=== PATIENT | male | born 1950 | race Caucasian/White ===

== ENCOUNTER 2020-03-11 14:43 | Emergency (ER) | payer MEDICARE, MEDICAID, SELFPAY ==
--- NOTE | 2020-03-11 14:52 | ED.GENADULT ---
HPI - General Adult General Chief complaint: Skin/Abscess/Foreign Body Stated complaint: back of left leg wound Time Seen by Provider: 03/11/20 14:52 Source: patient Mode of arrival: ambulatory Limitations: no limitations History of Present Illness HPI narrative: 69-year-old male patient presents to the [facility] with complaints of a wound to the back of the left leg. Patient states he does have a history of diabetes and does get cellulitis often to this leg. Patient states he had an issue with cellulitis to the left leg and November was put on clindamycin and states that it cleared up. Patient states that it is started to come back early February and did see his doctor in which they prescribed him cefdinir and Bactroban. Patient states he has been cleaning the wound with regular soap and water and taking [place] for pain. Patient states he did finish the antibiotic but does not feel like he is cleared up. Patient states he feels like the wound is gotten worse. Patient denies dressing the wound but has been putting the Bactroban on it. Patient states he has been checking his sugars about once a day and has been ranging around 120. Patient states he does take insulin when needed. Patient states he did try calling his primary doctor today but they were unable to get him in today so he wanted to come here to get checked out. Denies any fevers, chest pain or shortness of breath. Related Data Home Medications Medication Instructions Recorded Confirmed cholecalciferol (vitamin D3) 50 2,000 unit PO DAILY 12/09/19 mcg (2,000 unit) tablet glipizide 2.5 mg tablet, extended 2.5 mg PO DAILY 12/09/19 03/11/20 release 24 hr levothyroxine 100 mcg tablet 100 mcg PO DAILY 12/09/19 03/11/20 lisinopril 20 mg tablet 20 mg PO DAILY 12/09/19 03/11/20 simvastatin 40 mg tablet 40 mg PO DAILY 12/09/19 Allergies Allergy/AdvReac Type Severity Reaction Status Date / Time levofloxacin Allergy Mild Rash Verified 03/11/20 15:29 Quinolones Allergy Mild Rash Verified 03/11/20 15:29 Review of Systems Review of Systems: Narrative: CONSTITUTIONAL: Denies fever, chills, or sweats. EYES: Denies visual changes, redness, or discharge. ENT: Denies rhinorrhea, congestion, sore throat, or otalgia. CARDIOVASCULAR: Denies chest pain, palpitations, or edema. RESPIRATORY: Denies cough or dyspnea. GASTROINTESTINAL: Denies abdominal pain, nausea, vomiting, or diarrhea. GENITOURINARY: Denies dysuria or hematuria. SKIN: Denies rash or itching. Positive wound to the back of the left leg MUSCULOSKELETAL: Denies back pain, joint pain, or myalgia. NEUROLOGIC: Denies headache, numbness, or weakness. PSYCHIATRIC: Denies anxiety or depression. [facility] Past Medical History Medical History Chronic venous insufficiency Colon polyp Shingles Ventral hernia Family History Family History Father Family history of heart disease in male family member before age 55, Onset Age: 64 Patient's father is Family history of cardiovascular disease Other Family history of kidney disease Family history of osteoarthritis Hypertension Social History Social History Smoking status: Never smoker Second hand tobacco smoke exposure: No Alcohol intake: current Comments At the time of my signature I agree with nursing past medical history, surgical, social, and family history. There is no relevant family history pertinent to the presenting complaint. Exam Narrative: Exam Narrative: GENERAL: Well-appearing, well-nourished, and in no acute distress. HEAD: Normocephalic, atraumatic. EYES: PERRLA and EOMI. ENT: Nares clear, no rhinorrhea or epistaxis. Mucous membranes moist. NECK: Supple. No lymphadenopathy CHEST: Clear to auscultation. No respiratory distress. HEART: Regular rate and rhythm. No murmur hear
[2020-03-11 14:55] VITALS: BP 159/56; PULSE 69; RESP 18; TEMP 36.9; O2SAT 100
[2020-03-11 15:20] LABS: Glucose Point of Care 83 (65-105)
== END 2020-03-11 15:30 | disposition home or self-care (01) ==
PROVIDERS: Emergency Provider Nurse Practitioner Family; PCP Internal Medicine
DX: L03.116 Cellulitis of left lower limb (principal); E11.9 Type 2 diabetes mellitus without complications; Z79.4 Long term (current) use of insulin; I87.2 Venous insufficiency (chronic) (peripheral); R03.0 Elevated blood-pressure reading, without diagnosis of hypertension
CPT/HCPCS: 82948; 99213; G0463

== ENCOUNTER 2020-03-17 07:43 | Outpatient (CLI) | payer MEDICARE, MEDICAID, SELFPAY ==
--- NOTE | ~2020-03-17 | US_ITS ---
EXAMINATION: US arterial ankle brachial ind DATE: 03/17/2020 09:08 INDICATION: Cellulitis and wound at the left lower limb. Peripheral vascular disease risk factors of diabetes, hypertension and hypercholesterolemia. TECHNIQUE: Segmental pressures and plethysmographic and Doppler waveforms of the brachial and lower e xtremity arteries were obtained. COMPARISON: None. FINDINGS: Right and left brachial artery pressures of 127 mm Hg and 116 mm Hg, respectively, are concordant (no rmal difference <= 30 mmHg). The right ankle-brachial index (MILI) is 1.38 (normal >= 0.9-1.0). The right great toe-brachial index (TBI) is 0.64 (normal >= 0.65). Arterial Doppler waveforms are biphasic with brisk systolic upstrokes at the right posterior tibial and dorsalis pedis arteries. The left MILI is 1.51. The left TBI is 0.65. Arterial Doppler waveforms are biphasic with brisk systol ic upstrokes at the left posterior tibial and dorsalis pedis arteries. IMPRESSION: 1. No significant arterial occlusive disease to either lower limb with normal bilateral ABIs, left TB I and borderline right TBI. Reviewed, dictated and finalized at location A. IMPRESSION: 1. No significant arterial occlusive disease to either lower limb with normal b ilateral ABIs, left TBI and borderline right TBI.
[2020-03-17 08:36] LABS: Hemoglobin A1C 6.2 % (<5.7)
[2020-03-17 08:43] LABS: Alanine Aminotransferase 15 U/L (4-50); Albumin Level 4.1 g/dL (3.5-5.1); Alkaline Phosphatase 78 U/L (38-126); Aspartate Amino Transferase 23 U/L (17-59); Bilirubin,Total 0.3 mg/dL (0.2-1.3); Blood Urea Nitrogen 23 mg/dL (9-20); Calcium 9.1 mg/dL (8.4-10.2); Carbon Dioxide 28 mmol/L (22-30); Chloride 101 mmol/L (98-107); Cholesterol 137 mg/dL (0-200); Estimated Glomerular Filt Rate > 60; Glucose 101 mg/dL (75-110); HDL Direct 48 mg/dL; Potassium 4.5 mmol/L (3.4-5.0); Sodium 136 mmol/L (137-145); Triglycerides 119 mg/dL (<150)
[2020-03-17 08:54] LABS: LDL Cholesterol Direct 62 mg/dL
[2020-03-17 09:01] LABS: Creatinine Urine 83.1 mg/dL
[2020-03-17 09:05] LABS: MALB Creatinine Ratio 9.3 mg/g (0-30); Microalbumin Urine Random 7.7 mg/L (0-16.7)
[2020-03-17 09:15] LABS: Free T4 Free Thyroxine 1.28 ng/mL (0.78-2.19)
== END 2020-03-17 07:44 | disposition home or self-care (01) ==
PROVIDERS: Referring Provider Nurse Practitioner; Visit Provider Internal Medicine
DX: E11.9 Type 2 diabetes mellitus without complications (principal); E78.00 Pure hypercholesterolemia, unspecified; E03.9 Hypothyroidism, unspecified; R09.89 Other specified symptoms and signs involving the circulatory and respiratory systems
CPT/HCPCS: 36415; 80053; 80061; 82043; 82248; 83036; 84439; 84443; 93922

== ENCOUNTER 2020-04-21 07:14 | Outpatient (RCR) | payer MEDICARE, MEDICAID, SELFPAY ==
--- NOTE | 2020-04-14 08:44 | PCWOUND ---
WOCN NOTE patient did not show up for scheduled appointment. Call was made, patient states he forgot about appointment, rescheduled for next week.
== END 2020-06-13 07:43 | disposition home or self-care (01) ==
LOC: ANHWOC 07:14
PROVIDERS: Visit Provider Internal Medicine
DX: L97.909 Non-pressure chronic ulcer of unspecified part of unspecified lower leg with unspecified severity (principal)
CPT/HCPCS: 99211; 99212; G0463

== ENCOUNTER 2020-04-28 07:02 | Outpatient (CLI) | payer MEDICARE, MEDICAID, SELFPAY ==
[2020-04-28 07:50] LABS: Alanine Aminotransferase 15 U/L (4-50); Albumin Level 4.2 g/dL (3.5-5.1); Alkaline Phosphatase 80 U/L (38-126); Aspartate Amino Transferase 22 U/L (17-59); Bilirubin,Total 0.2 mg/dL (0.2-1.3); Blood Urea Nitrogen 17 mg/dL (9-20); Calcium 8.9 mg/dL (8.4-10.2); Carbon Dioxide 26 mmol/L (22-30); Chloride 104 mmol/L (98-107); Cholesterol 137 mg/dL (0-200); Estimated Glomerular Filt Rate > 60; Glucose 109 mg/dL (75-110); HDL Direct 56 mg/dL; Potassium 4.6 mmol/L (3.4-5.0); Sodium 136 mmol/L (137-145); Triglycerides 150 mg/dL (<150)
[2020-04-28 07:52] LABS: Hemoglobin A1C 6.1 % (<5.7)
[2020-04-28 08:02] LABS: LDL Cholesterol Direct 60 mg/dL
== END 2020-04-28 07:03 | disposition home or self-care (01) ==
PROVIDERS: Visit Provider Internal Medicine
DX: E78.5 Hyperlipidemia, unspecified (principal); E11.9 Type 2 diabetes mellitus without complications; I10 Essential (primary) hypertension; E03.9 Hypothyroidism, unspecified
CPT/HCPCS: 36415; 80053; 80061; 83036; 84443

== ENCOUNTER 2020-08-31 07:24 | Outpatient (RCR) | payer MEDICARE, MEDICAID, SELFPAY ==
[2020-07-22 12:44] VITALS: BMI 49.9
--- NOTE | 2020-08-10 09:48 | PCWOUND ---
WOCN NOTE Received orders to continue to follow patient for wound care. Patient is currently active for wound care. Called patient for follow up appointment. Patient states his wound is better and does not think he really needs to come in. Informed patient he needs to be seen per order received from PCP. Patient accepted appointment for August 17 at 9:30.
--- NOTE | 2020-09-28 09:36 | PCWOUND ---
WOCN NOTE patient did not show up for appointment. left message to reschedule.
== END 2020-10-20 23:59 | disposition home or self-care (01) ==
LOC: ANHWOC 07:24
PROVIDERS: Visit Provider Internal Medicine
DX: L97.929 Non-pressure chronic ulcer of unspecified part of left lower leg with unspecified severity (principal); G51.0 Bell's palsy
CPT/HCPCS: 99212; G0463

== ENCOUNTER 2020-08-31 11:44 | Emergency (ER) | payer MEDICARE, MEDICAID, SELFPAY | END 2020-08-31 11:45 | disposition left against medical advice (07) | PROVIDERS: PCP Internal Medicine | DX: Z53.21 Procedure and treatment not carried out due to patient leaving prior to being seen by health care provider (principal) | CPT/HCPCS: 99199 ==

== ENCOUNTER 2020-09-05 09:26 | Outpatient (CLI) | payer MEDICARE, MEDICAID, SELFPAY ==
[2020-09-05 09:57] LABS: Hemoglobin A1C 6.1 % (<5.7)
[2020-09-05 09:59] LABS: Alanine Aminotransferase 16 U/L (4-50); Albumin Level 4.1 g/dL (3.5-5.1); Alkaline Phosphatase 82 U/L (38-126); Anion Gap 10 mmol/L (8-16); Aspartate Amino Transferase 20 U/L (17-59); Bilirubin,Total 0.4 mg/dL (0.2-1.3); Blood Urea Nitrogen 23 mg/dL (9-20); Calcium 9.2 mg/dL (8.4-10.2); Carbon Dioxide 25 mmol/L (22-30); Chloride 105 mmol/L (98-107); Cholesterol 129 mg/dL (0-200); Estimated Glomerular Filt Rate > 60; Glucose 112 mg/dL (75-110); HDL Direct 51 mg/dL; Potassium 4.8 mmol/L (3.4-5.0); Sodium 140 mmol/L (137-145); Triglycerides 153 mg/dL (<150)
[2020-09-05 10:10] LABS: LDL Cholesterol Direct 55 mg/dL
== END 2020-09-05 09:27 | disposition home or self-care (01) ==
PROVIDERS: PCP Internal Medicine; Visit Provider Nurse Practitioner
DX: E78.5 Hyperlipidemia, unspecified (principal); E11.9 Type 2 diabetes mellitus without complications
CPT/HCPCS: 36415; 80053; 80061; 83036

== ENCOUNTER 2020-12-21 10:50 | Outpatient (CLI) | payer MEDICARE, MEDICAID, SELFPAY ==
--- NOTE | ~2020-12-21 | XR_ITS ---
EXAMINATION: XR hip LT min 2V DATE: 12/21/2020 11:28 INDICATION: Left hip pain TECHNIQUE: Anteroposterior and frog leg lateral views of the left hip were obtained. COMPARISON: Pelvis radiograph 07/13/2011 FINDINGS: Interval progression of now severe osteoarthritis at the left hip with prominent subarticular lytic a nd sclerotic changes. No fracture. Partially visualized is the femoral head and acetabular components of a right total hip arthroplasty. IMPRESSION: 1. Severe left hip osteoarthritis. Reviewed, dictated and finalized at location B. WARE ENGINEER INTERN
--- NOTE | ~2020-12-21 | XR_ITS ---
XR lumbar spine 2-3V DATE: 12/21/2020 11:28 INDICATION: Low back pain. No injury. TECHNIQUE: AP, lateral, coned lateral lumbosacral views COMPARISON: 07/16/2011 lumbar spine FINDINGS: There is mild levoscoliosis of lumbar spine. There is diffuse osteopenia. Degenerative spurring of the lower thoracic spine. There is severe degenerative disc disease at L1-2, moderately prominent degenerative disc disease at L2-3, L3-4 and mild degenerative disc disease at L4-5. No fracture or bone destruction is evident. The pedicles appear intact. The sacroiliac joints are intact. Right total hip replacement is noted. IMPRESSION: Mild levoscoliosis Osteopenia Multilevel degenerative disc disease Reviewed, dictated and finalized at location A. ICAL PROJECT COORDINATOR
== END 2020-12-21 10:51 | disposition home or self-care (01) ==
LOC: ANHIMG 11:00
PROVIDERS: Family Provider Internal Medicine; PCP Internal Medicine; Visit Provider Internal Medicine
DX: M51.36 Other intervertebral disc degeneration, lumbar region (principal); M85.88 Other specified disorders of bone density and structure, other site; M16.12 Unilateral primary osteoarthritis, left hip
CPT/HCPCS: 72100; 73502; 99212; G0463

== ENCOUNTER 2021-01-18 07:35 | Outpatient (RCR) | payer MEDICARE, MEDICAID, SELFPAY | END 2021-01-31 23:59 | disposition home or self-care (01) | LOC: ANHWOC 07:35 | PROVIDERS: PCP Internal Medicine; Visit Provider Internal Medicine | DX: L97.929 Non-pressure chronic ulcer of unspecified part of left lower leg with unspecified severity (principal) | CPT/HCPCS: 99212; G0463 ==

== ENCOUNTER 2021-01-20 08:28 | Outpatient (CLI) | payer MEDICARE, MEDICAID, SELFPAY ==
[2021-01-20 08:57] LABS: Basophils Percent Auto 0.6 % (0.2-1.2); Eosinophils Absolute Auto 0.5 K/mm3 (0-0.3); Eosinophils Percent Auto 7.3 % (0-4.4); Hematocrit 37.4 % (42.0-52.0); Hemoglobin 11.5 g/dL (14.0-18.0); Immature Granulocyte Absolute 0.07 K/mm3 (0.00-0.031); Immature Granulocyte Percent A 1.1 % (0-0.5); Lymphocytes Absolute Auto 1.27 K/mm3 (0.9-3.2); Lymphocytes Percent Auto 20.6 % (18.3-44.2); Mean Corpuscular HGB Conc 30.7 g/dl (32-36); Mean Corpuscular Hemoglobin 28.6 pg (26-34); Monocytes Absolute Auto 0.4 K/mm3 (0.1-0.6); Monocytes Percent Auto 5.8 % (2.6-8.5); Neutrophils Percent Auto 64.6 % (45.5-73.1); Platelet Count Result 420 k/mm3 (150-375); Red Blood Count 4.02 M/mm3 (4.6-6.20); Red Cell Distribution Width 17.4 % (11.5-14.5); White Blood Count 6.2 K/mm3 (4.5-10.0)
[2021-01-20 09:14] LABS: Alanine Aminotransferase 20 U/L (4-50); Albumin Level 4.5 g/dL (3.5-5.1); Alkaline Phosphatase 85 U/L (38-126); Anion Gap 7 mmol/L (8-16); Aspartate Amino Transferase 32 U/L (17-59); Bilirubin,Total 0.4 mg/dL (0.2-1.3); Blood Urea Nitrogen 34 mg/dL (9-20); Calcium 9.2 mg/dL (8.4-10.2); Carbon Dioxide 26 mmol/L (22-30); Chloride 107 mmol/L (98-107); Cholesterol 141 mg/dL (0-200); Estimated Glomerular Filt Rate > 60; Glucose 114 mg/dL (75-110); HDL Direct 51 mg/dL; Potassium 4.7 mmol/L (3.4-5.0); Sodium 140 mmol/L (137-145); Triglycerides 253 mg/dL (<150)
[2021-01-20 09:25] LABS: LDL Cholesterol Direct 47 mg/dL
[2021-01-20 09:33] LABS: Iron 64 ug/dL (49-181); Percent Iron Saturation 17 % (20-50)
[2021-01-20 10:42] LABS: Prostate Specific Antigen 0.5 ng/mL (< OR = 4.0)
[2021-01-20 10:59] LABS: Hemoglobin A1C 5.6 % (<5.7)
== END 2021-01-20 08:29 | disposition home or self-care (01) ==
PROVIDERS: PCP Internal Medicine; Visit Provider Internal Medicine
DX: E11.9 Type 2 diabetes mellitus without complications (principal); D64.9 Anemia, unspecified; I10 Essential (primary) hypertension; Z12.5 Encounter for screening for malignant neoplasm of prostate; E78.5 Hyperlipidemia, unspecified; E03.9 Hypothyroidism, unspecified
CPT/HCPCS: 36415; 80053; 80061; 83036; 83540; 83550; 84153; 84443; 85025; G0103

== ENCOUNTER 2021-02-02 09:00 | Outpatient (RCR) | payer MEDICARE, MEDICAID, SELFPAY ==
--- NOTE | 2020-12-29 14:19 | PTOPEVAL ---
Thank you for referring Miles Pinto to [facility].? The patient is scheduled to be seen for therapy? 2 x/week for 8 weeks. Please review, sign, date and return this plan of care LISANDRA. I agree with and certify that the following plan of care is medically necessary. 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 He was at [facility]hab [facility] in [place] for ~4 wk. He also had rehab 2 yrs ago. He uses a walker for his household mobility. He is limited with his tolerance with standing to 10 min and sitting to 30 min. He was referred due to cont pain. He does not performing any exercises. He walks to the mailbox 6x/wk of ~ 125 ft. He spends most of his day in the chair watching TV and using computer. Pain Assessment Lower Back Reported Pain Level 3 Pain Description Aching Pain Frequency Chronic,Continuous Lowest Pain Intensity 2 Greatest Pain Intensity 3 Pain Aggravating Factors Bending,Exercise/Activity, Lifting,Prolonged Position, Sitting,Walking,Weight Bearing /Standing Left Hip(s) Reported Pain Level 5 Pain Description Aching Pain Frequency Chronic,Continuous Lowest Pain Intensity 3 Greatest Pain Intensity 7 Pain Aggravating Factors ADL's,Exercise/Activity, Lifting,Prolonged Position, Sitting,Walking,Weight Bearing /Standing Pain Score 5,3: Self Report Cervical and Lumbar ROM Lumbar ROM Lumbar ROM
--- NOTE | 2021-02-02 09:30 | PTOPEVAL ---
Thank you for referring Miles Pinto to [facility].? Pt has bee seen for 11 therapy visits from 12/29/20 to 02/02/21 to address hip and back pain. He has partially achieved his therapy goals with improved pain, functional mobility and strength. Miles is able to perform a home exercise program to maintain his level of function. Will D/C skilled therapy services at this time. Please review, sign, date and return discharge summary LISANDRA. I agree with and certify that the following plan of care is medically necessary. 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 He remains limited with his tolerance with standing to 10 min and sitting to 30 min. He walks to the mailbox 6x/wk of ~ 125 ft. He does feel like his walking is getting better with improved ease of walking. Pain Assessment Self Report Pain Assessment Lower Back Reported Pain Level 5 Pain Description Aching Lowest Pain Intensity 5 Greatest Pain Intensity 7 Pain Aggravating Factors Exercise/Activity,Prolonged Position,Sitting,Walking, Weight Bearing/Standing Left Hip(s) Reported Pain Level 3 Pain Description Aching Pain Frequency Chronic,Continuous Lowest Pain Intensity 3 Greatest Pain Intensity 7 Pain Aggravating Factors Exercise/Activity,Prolonged Position,Sitting,Walking, Weight Bearing/Standing Cervical and Lumbar ROM Lumbar Flexion Active Mid Colmenares Query Text:Hands to: Lumbar ROM 25% of Normal Lumbar Comments no pain in left hip or back with trunk flexion or extension with motion
== END 2021-02-02 10:29 | disposition home or self-care (01) ==
LOC: ANHPT 09:00
PROVIDERS: PCP Internal Medicine; Visit Provider Internal Medicine
DX: M54.5 Low back pain (principal); M25.552 Pain in left hip
CPT/HCPCS: 97110; 97116; 97163; 97530

== ENCOUNTER 2021-02-08 09:02 | Outpatient (CLI) | payer MEDICARE, MEDICAID, SELFPAY ==
--- NOTE | ~2021-02-08 | NM_ITS ---
EXAMINATION: NM karo stress w perfusion DATE: 02/08/2021 13:11 INDICATION: Type 2 diabetes without complication. Preop. TECHNIQUE: Rest images were obtained following intravenous administration of 9.5 mCi Tc99m tetrofosmi n (Myoview). The patient was infused intravenously with Lexiscan (regadenoson). Then, 27.7 mCi Tc99m tetrofosmin (Myoview) was administered intravenously, and stress images were obtained. Data was recon structed into short axis and horizontal and vertical long axis SPECT images. Gated SPECT images were also obtained. COMPARISON: None. FINDINGS: There is a small, mild, fixed perfusion defect involving apical lateral segment of left adrián tricle, consistent with infarct. No reversible component to suggest ischemia. There is no segmental wall motion abnormality. Left ventricular ejection fraction measures 67%. IMPRESSION: 1. Small area of mild infarct involving apical lateral segment of left ventricle. 2. Normal left ventricular ejection fraction measuring 67%. Reviewed, dictated and finalized at location A. IMPRESSION: 1. Small area of mild infarct involving apical lateral segment of left ventricl e. 2. Normal left ventricular ejection fraction measuring 67%.
--- NOTE | 2021-02-08 09:18 | EST_ITS ---
Patient Info Name: Miles Pinto Age: 70 years : 1950 Gender: Male Ht: 65 in Wt: 295 lbs BSA: 2.56 m2 Exam Date: 02/08/2021 10:55 AM Exam Location: [facility] Stress Patient Status: Outpatient Admit Date: 02/08/2021 Staff Ordering Physician: Weston Simental DO Attending Provider: Weston Simental DO Exercise Technologist: Ky Kapadia RDCS, RT Exercise Physician: Nico Nguyne DO Exam Type: CA stress karo w NM Study Info A regadenoson stress test was performed. Summary 1. 1. Negative lexiscan stress test for ischemic ST changes by ECG criteria. 2. 2. Stable hemodynamics throughout the test. 3. 3. Nuclear scan to follow and will be reported separately. Please correlate with it. 4. 4. Patient informed of the above results. Protocol: Lexiscan Stress ECG Details Stage: REST Duration (min): 6 min : 32 sec HR (bpm): 66 SBP (mmHg): 115 DBP (mmHg): 57 Stage: REST Duration (min): 11 min : 17 sec HR (bpm): 75 SBP (mmHg): 115 DBP (mmHg): 57 Stage: STAGE 1 Duration (min): 1 min : 0 sec HR (bpm): 91 SBP (mmHg): 131 DBP (mmHg): 68 Stage: RECOVERY Duration (min): 1 min : 0 sec HR (bpm): 93 SBP (mmHg): 131 DBP (mmHg): 68 Stage: RECOVERY Duration (min): 2 min : 0 sec HR (bpm): 90 SBP (mmHg): 131 DBP (mmHg): 68 Stage: RECOVERY Duration (min): 3 min : 0 sec HR (bpm): 90 SBP (mmHg): 132 DBP (mmHg): 57 Stage: RECOVERY Duration (min): 3 min : 6 sec HR (bpm): 90 SBP (mmHg): 132 DBP (mmHg): 57 Rest HR: 75 bpm Peak HR: 95 bpm Rest Sys BP: 115 mmHg Peak Sys BP: 132 mmHg Max Pred HR: 148 bpm % Max Pred HR: 64 % Target HR: 126 bpm Max RPP: 12,540 bpm*mmHg Termination Reason: Completed protocol Cardiac Symptoms: Shortness of breath Total Time: 1 min : 0 sec Rest High BP: 57 mmHg Peak High BP: 57 mmHg Total Dose: 0.4 mg Resting ECG Sinus rhythm, IRBBB. Stress ECG No ST changes. Arrhythmias None. Report Signatures
== END 2021-02-08 09:03 | disposition home or self-care (01) ==
PROVIDERS: PCP Internal Medicine; Visit Provider Internal Medicine
DX: E11.9 Type 2 diabetes mellitus without complications (principal); E66.01 Morbid (severe) obesity due to excess calories; Z01.810 Encounter for preprocedural cardiovascular examination
CPT/HCPCS: 78452; 93017; A9502; J2785

== ENCOUNTER 2021-05-03 07:23 | Outpatient (RCR) | payer MEDICARE, MEDICAID, SELFPAY | END 2021-05-17 23:59 | disposition home or self-care (01) | LOC: ANHWOC 07:23 | PROVIDERS: PCP Internal Medicine; Visit Provider Internal Medicine | DX: L97.929 Non-pressure chronic ulcer of unspecified part of left lower leg with unspecified severity (principal) | CPT/HCPCS: 99211; 99212; G0463 ==

== ENCOUNTER 2023-05-08 19:59 | Emergency (ER) | payer MEDICARE, MEDICAID, SELFPAY ==
--- NOTE | ~2023-05-08 | CT_ITS ---
EXAMINATION: CT brain wo con INDICATION: Left-sided facial droop COMPARISON: None TECHNIQUE: Standard unenhanced head CT. The dose-length product (DLP) was 681.00 mGy-cm. The mA was a djusted according to patient size. Iterative reconstruction technique was employed. FINDINGS: There is no acute intraparenchymal hemorrhage. No evidence of mass lesion. No evidence of a cute infarction. There is mild periventricular and subcortical hypodensity probably related to small vessel ischemic disease. There is mild prominence of the sulci and ventricles related to cerebral atr ophy. Intracranial calcified cerebral atherosclerosis is noted. There are no extra-axial collections. There is no mass effect or midline shift. There is mild hypertrophy of the extraocular muscles. Ther e is fibrous union of the posterior C1 ring. The visualized sinuses and mastoid air cells are well ae rated. IMPRESSION: 1. No acute intracranial abnormality. 2. Age related findings. 3. Mild hypertrophy of the extraocular muscles which can be seen in the setting of Graves' disease. Reviewed, dictated and finalized at location A.
[2023-05-08 20:25] VITALS: BP 115/78; PULSE 84; RESP 20; TEMP 36.1; O2SAT 100
[2023-05-09] VITALS (8 sets, daily range): BP systolic 142; BP diastolic 88; PULSE 82–93; RESP 15–27; O2SAT 96–100
--- NOTE | 2023-05-09 00:03 | ECG_ITS ---
Measurements Intervals [place] Rate: 80 P: NE: 0 QRS: 10 QRSD: 97 T: 20 QT: 371 QTc: 428 Interpretive Statements ATRIAL FIBRILLATION LOW QRS VOLTAGE IN PRECORDIAL LEADS [QRS DEFLECTION < 1.0 mV IN CHEST LEADS] POSSIBLE RIGHT VENTRICULAR CONDUCTION DELAY [RSR (QR) IN V1/V2] ABNORMAL RHYTHM ECG NO PREVIOUS ECG AVAILABLE FOR COMPARISON Electronically Signed On 05-09-2023 13:52:11 CDT by Manan Carter M.D.
[2023-05-09 00:29] LABS: Alanine Aminotransferase 16 U/L (6-50); Albumin Level 4.4 g/dL (3.5-5.1); Alkaline Phosphatase 124 U/L (38-126); Anion Gap 8 mmol/L (8-16); Aspartate Amino Transferase 22 U/L (17-59); Bilirubin,Total 0.5 mg/dL (0.2-1.3); Blood Urea Nitrogen 28 mg/dL (9-20); Calcium 8.5 mg/dL (8.4-10.2); Carbon Dioxide 27 mmol/L (22-30); Chloride 105 mmol/L (98-107); Estimated CRCL calculation 89 ml/min; Estimated Glomerular Filt Rate > 60; Glucose 88 mg/dL (65-110); Potassium 4.2 mmol/L (3.4-5.0); Sodium 140 mmol/L (137-145)
[2023-05-09 00:35] LABS: Basophils Percent Auto 0.4 % (0.2-1.2); Eosinophils Absolute Auto 0.2 K/mm3 (0-0.3); Eosinophils Percent Auto 3.2 % (0-4.4); Hematocrit 38.5 % (42.0-52.0); Hemoglobin 11.8 g/dL (14.0-18.0); Immature Granulocyte Absolute 0.01 K/mm3 (0.00-0.031); Immature Granulocyte Percent A 0.2 % (0-0.5); Lymphocytes Absolute Auto 1.06 K/mm3 (0.9-3.2); Lymphocytes Percent Auto 20.1 % (18.3-44.2); Mean Corpuscular HGB Conc 30.6 g/dl (32-36); Mean Corpuscular Hemoglobin 27.6 pg (26-34); Mean Platelet Volume 9.6 fl (7.4-10.4); Monocytes Absolute Auto 0.4 K/mm3 (0.1-0.6); Monocytes Percent Auto 8.3 % (2.6-8.5); Neutrophils Absolute Auto 3.6 K/mm3 (1.3-6.7); Neutrophils Percent Auto 67.8 % (45.5-73.1); Platelet Count Result 326 k/mm3 (150-375); Red Blood Count 4.28 M/mm3 (4.6-6.20); Red Cell Distribution Width 19.7 % (11.5-14.5); White Blood Count 5.3 K/mm3 (4.5-10.0)
[2023-05-09 00:38] LABS: INR 1.1
--- NOTE | 2023-05-09 03:01 | ED.GENADULT ---
HPI - General Adult General Chief complaint: Neuro Symptoms/Deficit Stated complaint: facial numbness x 2 days - history of dover's palsy Time Seen by Provider: 05/08/23 23:48 History of Present Illness HPI narrative: Patient 73-year-old gentleman who presents the emergency department with chief complaint of left-sided facial numbness and facial droop. 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 The patient reports no weakness in his arms or legs reports no difficulty speech patient reports he has chronic venous stasis of his lower extremities Related Data Home Medications Medication Instructions Recorded Confirmed cholecalciferol (vitamin D3) 50 2,000 unit PO DAILY 12/09/19 06/12/21 mcg (2,000 unit) tablet fluticasone propionate 50 g intranasal 06/12/21 06/12/21 mcg/actuation nasal spray,suspension Allergies Allergy/AdvReac Type Severity Reaction Status Date / Time levofloxacin Allergy Mild Rash Verified 05/08/23 22:17 Quinolones Allergy Mild Rash Verified 05/08/23 22:17 Review of Systems Review of Systems: A 10 system review of systems was completed on the patient and is negative except for what is stated in the HPI. Nursing and ancillary documentation was reviewed. [facility] Past Medical History Medical History Chronic venous insufficiency Colon polyp Shingles Ventral hernia Family History Family History Father Family history of heart disease in male family member before age 55, Onset Age: 64 Patient's father is Family history of cardiovascular disease Other Family history of kidney disease Family history of osteoarthritis Hypertension Social History Social History Smoking status: Never smoker Second hand tobacco smoke exposure: No Alcohol intake: current Gender identity (if verbalized by the patient): Male Exam Narrative: GENERAL: Well-appearing, well-nourished, and in no acute distress. HEAD: Normocephalic, atraumatic. EYES: PERRLA and EOMI. ENT: Nares clear, no rhinorrhea or epistaxis. Mucous membranes moist. NECK: Supple. CHEST: Clear to auscultation. No respiratory distress. HEART: Regular rate and rhythm. No murmur heard. Normal peripheral pulses. ABDOMEN: Soft, nontender, nondistended, normal active bowel sounds. EXTREMITIES: Normal range of motion. No edema. SKIN: Warm, dry, no rash. There is chronic venous stasis present to the lower extremities NEURO: No focal deficits other than mild left-sided facial asymmetry that does involve the forehead. Alert and oriented x3. PSYCH: Normal mood and affect. Course Vital Signs Vital signs: Vital Signs Temperature 36.1 C L 05/08/23 20:25 Pulse Rate 84 05/08/23 20:25 Respiratory Rate 20 05/08/23 20:25 Blood Pressure 115/78 05/08/23 20:25 Pulse Oximetry 100 05/08/23 20:25 Oxygen Delivery Room Air 05/08/23 20:25 Temperature 36.1 C L 05/08/23 20:25 Pulse Rate 88 05/09/23 01:49 Respiratory Rate 27 H 05/09/23 01:49 Blood Pressure 115/78 05/08/23 20:25 Pulse Oximetry 96 05/09/23 01:49 Oxygen Delivery Room Air 05/08/23 20:25 Medical Decision Making Vital Signs Vital Signs: Vital Signs Temperature 36.1 C L 05/08/23 20:25 Pulse Rate 84 05/08/23 20:25 Respiratory Rate 20 05/08/23 20:25 Blood Pressure 115/78 05/08/23 20:25 Pulse Oximetry 100 05/08/23 20:25 Oxygen Delivery Room Air 05/08/23 20:25 Temperature 36.1 C L 05/08/23 20:25 Pulse Rate 88 05/09/23 01:49 Respiratory Rate 27 H 05/09/23 01:49 Blood Pressure 115/78 05/08/23 20:25 Pulse Oximetry 96 05/09/23 01:49 Oxygen Delivery Room Air 05/08/23 20:25 Lab Data 05/09/23 00:12 05/09/23 00:12
== END 2023-05-09 07:01 ==
PROVIDERS: Emergency Provider Emergency Medicine; PCP Family Medicine
DX: G51.0 Bell's palsy (principal); I87.8 Other specified disorders of veins; Z79.84 Long term (current) use of oral hypoglycemic drugs; Z79.891 Long term (current) use of opiate analgesic
CPT/HCPCS: 36415; 70450; 80053; 85025; 85610; 85730; 93005; 99284

== ENCOUNTER 2024-06-29 17:28 | Inpatient (IN) | payer MEDICARE, MEDICAID, SELFPAY ==
--- NOTE | ~2024-06-29 | CT_ITS ---
EXAMINATION: CT facial & cervical spine wo DATE: 06/29/2024 19:43 INDICATION: facial trauma TECHNIQUE: Computed tomography (CT) of the maxillofacial region and cervical spine was performed with out intravenous contrast. Automated exposure control and iterative reconstruction technique were empl oyed. The dose-length product was 681.00 mGy-cm. COMPARISON: CT C-spine 01/29/2005 FINDINGS: CERVICAL: Vertebral Body Alignment: Reversal of the normal cervical lordosis. Craniocervical and atlantoaxial alignment: Moderate degenerative change. Alignment intact. Osseous structures/fracture: No evidence of a lytic or blastic process in the visualized spine. No e vidence of acute fracture. Unfused posterior C1 arch. Cervical soft tissues: The paraspinal soft tissues planes are maintained. Degenerative changes: Degenerative changes, without severe neural foraminal or central canal narrowin g. FACE: Soft Tissues: No significant superficial soft tissue swelling. Facial bones: No acute fracture. No lytic or blastic process. Eyes: The globes are intact. The soft tissue planes of the orbits are maintained. Paranasal Sinuses: The visualized aerated spaces are clear. Foreign Bodies: No radiopaque foreign bodies. Other Findings: Mild dependent atelectasis in the lungs. IMPRESSION: No acute fracture or traumatic malalignment in the cervical spine. No acute facial bone fracture. Reviewed, dictated and finalized at location K. IMPRESSION: No acute fracture or traumatic malalignment in the cervical spine. No acute fac ial bone fracture.
--- NOTE | ~2024-06-29 | XR_ITS ---
EXAMINATION: XR chest 1V Exam Date/Time: 06/29/2024 20:00 CDT HISTORY: shortness of breath Comparison: 05/14/2019. RESULT: Lines, tubes, and devices: Cholecystectomy clips. Lungs and pleura: Lordotic positioning. Lungs clear. Cardiomediastinal silhouette: Stable. Other: No acute osseous or upper abdominal finding. IMPRESSION: No acute cardiopulmonary process. Reviewed, dictated and finalized at location K.
--- NOTE | ~2024-06-29 | XR_ITS ---
EXAM: XR hip BI 2V w AP pelvis DATE: 06/29/2024 20:25 HISTORY: pain s/p fall . COMPARISON: 12/21/2020. FINDINGS: Exam limited by underpenetration from body habitus. Degenerative changes in the spine. Cl ateral uncomplicated hip arthroplasties. Dystrophic ossification about the left hip. No definite frac ture or dislocation. IMPRESSION: Limited examination as noted above. No definite acute osseous finding in the pelvis or bi lateral hips. No definite radiographic evidence of hardware related complication. Reviewed, dictated and finalized at location K. IMPRESSION: Limited examination as noted above. No definite acute osseous findi ng in the pelvis or bilateral hips. No definite radiographic evidence of hardwa re related complication.
--- NOTE | ~2024-06-29 | CT_ITS ---
EXAMINATION: CT brain wo con DATE: 06/29/2024 19:43 INDICATION: fall head injury . TECHNIQUE: Computed tomography (CT) of the head was performed without intravenous contrast. The mA wa s adjusted according to patient size. Iterative reconstruction technique was employed. The dose-lengt h product was 681.00 mGy-cm. COMPARISON: 05/09/2023. FINDINGS: No acute intracranial hemorrhage or extra-axial fluid collection. No hydrocephalus, mass, or herniation. No acute ischemic infarct. Unremarkable dural venous sinus attenuation. No acute osseous abnormality. The aerated spaces are clear. Mild atrophy and chronic white matter change. Atherosclerotic intracranial calcification. IMPRESSION: No acute intracranial process. Reviewed, dictated and finalized at location K.
--- NOTE | ~2024-06-29 | XR_ITS ---
EXAM: XR elbow LT 2V DATE: 06/29/2024 20:25 HISTORY: Pain status post fall . COMPARISON: None available. FINDINGS: Normal mineralization. No fracture or dislocation. No lytic or blastic lesion. Degenerativ e changes elbow joint. No erosion or periosteal change. Vascular calcifications. IMPRESSION: No acute osseous finding in the left elbow. Reviewed, dictated and finalized at location K.
--- NOTE | ~2024-06-29 | XR_ITS ---
EXAM: XR forearm RT 2V DATE: 06/29/2024 20:25 HISTORY: Pain status post fall . COMPARISON: None available. FINDINGS: Normal mineralization. No fracture or dislocation. No lytic or blastic lesion. Degenerativ e changes in the wrist and elbow. Intact screw and plate fixation in the mid forearm. Likely old scre w tract in the proximal ulna. No erosion or periosteal change. Vascular calcifications. IMPRESSION: No acute osseous finding in the right forearm. Reviewed, dictated and finalized at location K.
[2024-06-29 17:41] VITALS: BP 90/56; PULSE 119; RESP 25; TEMP 36.8; O2SAT 90
[2024-06-29 19:01] VITALS: BP 100/65; PULSE 112; RESP 27
--- NOTE | 2024-06-29 19:15 | ECG_ITS ---
Test Date: 2024-06-29 21:02:12 Measurements Intervals [place] Rate: 118 P: 0 SD: 0 QRS: 1 QRSD: 91 T: 17 QT: 313 QTc: 440 Interpretive Statements ATRIAL FIBRILLATION WITH RAPID VENTRICULAR RESPONSE WITH ABERRANT CONDUCTION OR VENTRICULAR PREMATURE COMPLEXES LOW QRS VOLTAGE IN PRECORDIAL LEADS [QRS DEFLECTION < 1.0 mV IN CHEST LEADS] INCOMPLETE RIGHT BUNDLE BRANCH BLOCK No previous ECG available for comparison Electronically Signed On 06-30-2024 14:40:08 CDT by Manan Carter M.D.
--- NOTE | 2024-06-29 19:23 | ED.GENADULT ---
HPI - General Adult General Chief complaint: Fall Stated complaint: FALL Time Seen by Provider: 06/29/24 19:04 History of Present Illness HPI narrative: Patient 74-year-old gentleman who presents emergency department with chief complaint of fall. Patient is a resident of [facility] and has some issues with short-term memory. Patient states that he was walking and either lost his balance or was week. Related Data Home Medications Medication Instructions Recorded Confirmed cholecalciferol (vitamin D3) 50 2,000 unit PO DAILY 12/09/19 06/12/21 mcg (2,000 unit) tablet fluticasone propionate 50 g intranasal 06/12/21 06/12/21 mcg/actuation nasal spray,suspension Allergies Allergy/AdvReac Type Severity Reaction Status Date / Time levofloxacin Allergy Mild Rash Verified 05/08/23 22:17 Quinolones Allergy Mild Rash Verified 05/08/23 22:17 Review of Systems Review of Systems: A 10 system review of systems was completed on the patient and is negative except for what is stated in the HPI. Nursing and ancillary documentation was reviewed. [facility] Past Medical History Medical History Chronic venous insufficiency Colon polyp Shingles Ventral hernia Family History Family History Father Family history of heart disease in male family member before age 55, Onset Age: 64 Patient's father is Family history of cardiovascular disease Other Family history of kidney disease Family history of osteoarthritis Hypertension Social History Social History Smoking status: Never smoker Second hand tobacco smoke exposure: No Alcohol intake: current Gender identity (if verbalized by the patient): Male Exam Narrative: GENERAL: Well-appearing, well-nourished, and in no acute distress. HEAD: Normocephalic, atraumatic. EYES: PERRLA and EOMI. ENT: Nares clear, no rhinorrhea or epistaxis. Mucous membranes moist. NECK: Supple. CHEST: Clear to auscultation. No respiratory distress. HEART: Regular rate and rhythm. No murmur heard. Normal peripheral pulses. ABDOMEN: Soft, nontender, nondistended, normal active bowel sounds. EXTREMITIES: Normal range of motion tenderness to palpation of bilateral hips. No edema. SKIN: Warm, dry, no rash. Small skin tear to the right forearm contusion left elbow NEURO: No focal deficits. Alert and oriented x3 does occasionally with questions for the family this is normal. PSYCH: Normal mood and affect. Course Vital Signs Vital signs: Vital Signs Temperature 36.8 C 06/29/24 17:41 Pulse Rate 119 H 06/29/24 17:41 Respiratory Rate 25 H 06/29/24 17:41 Blood Pressure 90/56 L 06/29/24 17:41 Pulse Oximetry 90 06/29/24 17:41 Oxygen Delivery Room Air 06/29/24 17:41 Temperature 36.8 C 06/29/24 17:41 Pulse Rate 115 H 06/29/24 22:02 Respiratory Rate 21 H 06/29/24 22:02 Blood Pressure 94/52 L 06/29/24 22:02 Pulse Oximetry 98 06/29/24 22:02 Oxygen Delivery Room Air 06/29/24 17:41 Medical Decision Making [facility] Narrative Medical decision making narrative: Differential diagnosis includes dysrhythmia, pneumonia, infectious source, UTI, electrolyte abnormality, fracture, contusion, head injury, intracranial hemorrhage CT head CT C-spine were obtained that showed no acute abnormality facial bones were also included. EKG showed atrial fibrillation with rapid ventricular response Plain film x-ray showed no evidence of fracture. CBC showed a significant leukocytosis no source of infection was able to be found above chest x-ray urinalysis there is no signs of cellulitis Patient be admitted for observation. Due to the patient's softer blood pressure lytes and patient was started on digoxin Vital Signs Vital Signs: Vital Signs
--- NOTE | 2024-06-29 19:52 | PCRCNOTE ---
Patient in imaging, will complete ABG when patient return.
[2024-06-29 20:35] LABS: Alveolar/Arterial O2 Gradient 101.4 mmHg; Base Excess ABG -0.3 mEq/l (+/-2.0); Fractional Inspired Oxygen 32 %; HCO3 ABG 24.5 mEq/l (22.0-26.0); Oxygen Content ABG 16.7 %vol (16.0-22.0); Oxygen Saturation ABG 95.6 % (95.0-100.0); Oxyhemoglobin 93.9 % THb (90.0-100.0); PO2 ABG 78.8 mmHg (80.0-100.0); PO2 FiO2 Ratio Arterial Blood 2.46 %; Total Hemoglobin 12.6 g/dL (12.0-18.0); pH ABG 7.395 (7.350-7.450)
[2024-06-29 20:37] LABS: Device NASAL CANNULA; Modified Allen's Test Pass; Site Drawn RIGHT RADIAL
[2024-06-29 20:53] LABS: Hematocrit 40.8 % (42.0-52.0); Hemoglobin 12.6 g/dL (14.0-18.0); Mean Corpuscular HGB Conc 30.9 g/dl (32-36); Mean Corpuscular Hemoglobin 30.6 pg (26-34); Mean Platelet Volume 9.7 fl (7.4-10.4); Platelet Count Result 265 k/mm3 (150-375); Red Blood Count 4.12 M/mm3 (4.6-6.20); Red Cell Distribution Width 16.2 % (11.5-14.5); White Blood Count 21.1 K/mm3 (4.5-10.0)
[2024-06-29 20:59] LABS: Add Urine Microscopic? YES; Appearance Urine Clear (Clear); Bacteria Urine None Seen /hpf; Bilirubin Urine Negative (Negative); Blood Urine Negative (Negative); Color Urine Yellow (Yellow); Glucose Urine UA Negative (Negative); Ketones Urine Trace mg/dL (Negative); Leukocyte Esterase Ur Negative LEU/UL (Negative); Nitrate Urine Negative (Negative); Protein Urine 1+ mg/dL (Negative); RBC Urine 0-2 /hpf (0-2); Specific Grav Ur 1.018 (1.001-1.035); Squamous Epithelial Cell Urine None Seen /hpf (Few); WBC Urine 0-5 /hpf (0-3); pH Urine 5.5 (5.0-9.0)
[2024-06-29 21:03] LABS: Alanine Aminotransferase 11 U/L (6-50); Albumin Level 4.1 g/dL (3.5-5.1); Alkaline Phosphatase 104 U/L (38-126); Anion Gap 9 mmol/L (4-12); Aspartate Amino Transferase 17 U/L (17-59); Bilirubin,Total 0.8 mg/dL (0.2-1.3); Blood Urea Nitrogen 29 mg/dL (9-20); Calcium 8.6 mg/dL (8.4-10.2); Carbon Dioxide 28 mmol/L (22-30); Chloride 99 mmol/L (98-107); Estimated CRCL calculation 58 ml/min; Estimated Glomerular Filt Rate 59; Glucose 170 mg/dL (65-110); Potassium 4.6 mmol/L (3.4-5.0); Sodium 136 mmol/L (137-145)
[2024-06-29 21:09] LABS: INR 1.2; Prothrombin Time 15.3 Seconds (11.1-14.7)
[2024-06-29 21:10] LABS: Partial Thromboplastin Time 34.1 Seconds (22.3-36.8)
[2024-06-29 21:15] LABS: NT Pro B Type Natriuretic Pept 2160 pg/mL (19.9-100); Troponin I 0.015 ng/mL (0.000-0.034)
[2024-06-29 21:20] LABS: Anisocytosis 1+; Band Neutrophils Percent 4 % (0-6); Lymphocytes Absolute Manual 0.63 K/mm3 (1.1-4.5); Neutrophils Absolute Manual 20.46 K/mm3 (1.3-6.7); Neutrophils Percent Manual 93 % (46-73); Platelet Estimate Adequate (Adequate); Schistocytes None Seen; Total Cells Counted 100
[2024-06-29 22:02] VITALS: BP 94/52; PULSE 115; RESP 21; O2SAT 98
[2024-06-29 22:18] LABS: Procalcitonin 1.3 ng/mL
[2024-06-29 22:57] VITALS: PULSE 118
[2024-06-29] MEDS: DIGOXIN INJ 250 MCG/ML 2 ML AMP (*BKC) IV PUSH (22:57)
[2024-06-29 23:58] VITALS: BMI 51.0
[2024-06-29 23:59] VITALS: BP 80/36; PULSE 112; RESP 24; TEMP 38.2; O2SAT 94
[2024-06-30] VITALS (20 sets, daily range): BP systolic 81–104; BP diastolic 37–55; PULSE 70–112; RESP 16–28; TEMP 36.8–37.3; O2SAT 91–100; BMI 52.6
--- NOTE | 2024-06-30 | ECHO_ITS ---
Patient Info Name: Miles Pinto Age: 74 years : 1950 Gender: Male Ht: 65 in Wt: 316 lbs BSA: 2.65 m2 HR: 91 bpm BP: 85 / 44 mmHg Heart Rhythm: Atrial Fibrillation Technical Quality: Poor Exam Date: 06/30/2024 10:22 AM Exam Location: Echo Lab Patient Status: Outpatient Admit Date: 06/29/2024 Staff Ordering Physician: Luiz Zuñiga DO Newspaper Stuffer: Scarlet De Guzman RDCS Attending Provider: Aliza Liao APRN Referring Physician: Yogesh SERRANO; Exam Type: CA echo dop color flow w con Study Info Indications - New Afib Complete two-dimensional, color flow and Doppler transthoracic echocardiogram is performed with contrast to opacify the left ventricle and to improve the deliniation of the left ventricle endocardial borders. Contrast/Agitated Saline Contrast/Ag. Saline: Definity Amount: 2.00 ml Administered By: Scarlet De Guzman RDCS Existing IV Access: Yes IV Access Condition: patent with no signs of infiltration Summary 1. Technically difficult study with limited views. 2. Left ventricular chamber dimension is normal. 3. Left ventricular systolic function is normal, estimated at 65-70%. 4. There is mildly increased left ventricular wall thickness. 5. There is mild tricuspid valve regurgitation. Left Ventricle Left ventricular chamber dimension is normal. Left ventricular systolic function is normal, estimated at 65-70%. There is mildly increased left ventricular wall thickness. Right Ventricle Right ventricular chamber dimension is not well visualized. Left Atria Left atrial chamber dimension is not well visualized. Right Atria Right atrial chamber dimension is not well visualized. Atrial Septum Intact interatrial septum visualized by color flow imaging. Aortic Valve The aortic valve is not well visualized. There is no aortic valve regurgitation. Pulmonic Valve The pulmonic valve is not well visualized. Mitral Valve The mitral valve has thickened leaflets. There is trace mitral valve regurgitation. The mitral valve annulus is moderately calcified. Tricuspid Valve There is mild tricuspid valve regurgitation. Inferior Vena Cava Normal inferior vena cava with <50% collapse upon inspiration consistent with elevated right atrial pressure, 8 mmHg. Aorta The aortic root size at the sinus of Valsalva is normal. Left Ventricular Outflow Tract Name Value Normal LVOT 2D LVOT Diameter 1.98 cm LVOT Doppler LVOT Peak Gradient 1 mmHg LVOT Mean Gradient 1 mmHg LVOT VTI 11.88 cm LVOT VTI/AV VTI Ratio 0.45 LVOT Stroke Volume 36.71 ml LVOT CO 2.01 l/min LVOT CI 0.76 L/min/m2 Pulmonic Valve Name Value Normal RVOT Doppler RVOT Peak Gradient 1 mmHg
[2024-06-30] MEDS: SODIUM CHLORIDE 0.9% IV 500 ML IV CONT ×2 (00:18→10:53)
--- NOTE | 2024-06-30 00:32 | PM.IMHP ---
H&P: HPI History of Present Illness Date/Time: 06/29/24 23:30 Chief Complaint: weakness, fall Narrative: Patient is a 74-year-old male with past with history of morbid obesity, sleep apnea, essential hypertension, iron deficiency anemia, type 2 diabetes, congestive heart failure, hypothyroidism, GERD, hyperlipidemia presents to ED with complaints of a fall and generalized weakness. Patient does not ambulate much, he recently had a stay at [facility]. He has chronic wounds on his legs. He states he is compliant with his CPAP machine set at 14 cm H2O. He does not recall having a history of AFib. He has known history CPAP apnea and has been compliant with his CPAP machine with settings of 14cm H2O. He has had no recent med changes. He states that he is having difficulty caring for himself. In the ED: Patient presented with AFib with RVR heart rate up to 110s-120s. He leukocytosis 21,000 however had no fever and no other signs of infectious etiology. Negative UA, negative chest x-ray, blood cultures pending. With no source infection, antibiotics were held. He also has no history of leukocytosis. He was given a dose of digoxin for the AFib. His BNP was elevated 2100. Patient being admitted to IMU for further management of AFib with RVR. Review of Systems Review of Systems: Constitutional: No Fever, No Chills, No Night Sweats, he endorses fatigue and fall ENT/Mouth: No Hearing Changes, No Ear Pain, No Nasal Congestion, No Sinus Pain, No Hoarseness, No sore throat, No Rhinorrhea, No Swallowing Difficulty Eyes: No Eye Pain, No Redness, No Vision Changes Cardiovascular: No Chest Pain, No Palpitations, No Dyspnea on Exertion, No Orthopnea, No Claudication, No Edema Respiratory: No Cough, No Sputum, No Wheezing, No Shortness of Breath Gastrointestinal: No Nausea, No Vomiting, No Diarrhea, No Constipation, No Abdominal Pain, No Heartburn, No Hematochezia, No Melena Genitourinary: No Dysuria, No Urinary Frequency, No Hematuria, No Urinary Incontinence, No Urgency Musculoskeletal: No Arthralgias, No Myalgias, No Joint Swelling, No Joint Stiffness, No Back Pain Skin: No Skin Lesions, No Pruritis, No Hair Changes Neuro: No Weakness, No Numbness, No Paresthesias, No Loss of Consciousness, No Syncope, No Dizziness, No Headache Psych: No Anxiety/Panic, No Depression, No Insomnia Heme: No Bruising, No Bleeding Lymph: No Adenopathy Endocrine: No Polyuria, No Polydipsia, No Temperature Intolerance [facility] Past Medical History Medical History (Updated 06/30/24 @ 01:37 by Luiz Zuñiga DO) Adult hypothyroidism Chronic venous insufficiency Colon polyp Diabetes type 2, controlled GERD (gastroesophageal reflux disease) Hypercholesteremia Hypertension Morbid (severe) obesity due to excess calories Shingles Sleep apnea Ventral hernia Family History Family History Father Family history of heart disease in male family member before age 55, Onset Age: 64 Patient's father is Family history of cardiovascular disease Other Family history of kidney disease Family history of osteoarthritis Hypertension Social History Social History Smoking status: Never smoker Second hand tobacco smoke exposure: No Alcohol intake: never Substance use: never Substance use type: does not use Do You Feel Safe in your Home?: Yes Lack of Transportation: No Lack of Food: Never True Current Housing: I Have Housing Concerned About Future Housing: No Difficulty Paying Gas/Electric Bills: No Difficulty Paying for Meds: No Currently Unemployed: No Education: High School Diploma/GED Difficulty w/ Childcare or Family Care: No Gender identity (if verbalized by the patient): Male Spiritual care concerns: No Meds Home Medications and Allergies Home Medications Medication Instruction
--- NOTE | 2024-06-30 00:33 | ADMGEN ---
This patient, Miles Pinto, was admitted to IMU Room 207-01. Patient/family oriented to hospital policies and general routines including ID bracelet, bed and alarms, visiting hours, pain management, procedures, bathroom and other care routines, personal items, smoking policy, room service/diet, and visiting hours. Information on how to activate the Rapid Response Team has been discussed. Patient/Family are encouraged to report perceived risks to care and to ask questions if they do not understand what they are told or what they should do. Patient arrived to IMU at 1157PM.
[2024-06-30 00:43] LABS: Troponin I 0.021 ng/mL (0.000-0.034)
[2024-06-30] MEDS: ACETAMINOPHEN 325 MG TABLET 650 MG PO (00:55)
[2024-06-30 04:51] LABS: Hematocrit 36.2 % (42.0-52.0); Hemoglobin 11.2 g/dL (14.0-18.0); Mean Corpuscular HGB Conc 30.9 g/dl (32-36); Mean Corpuscular Hemoglobin 30.6 pg (26-34); Mean Corpuscular Volume 98.9 fl (80-100); Mean Platelet Volume 9.4 fl (7.4-10.4); Platelet Count Result 245 k/mm3 (150-375); Red Blood Count 3.66 M/mm3 (4.6-6.20); Red Cell Distribution Width 16.2 % (11.5-14.5); White Blood Count 19.2 K/mm3 (4.5-10.0)
[2024-06-30] MEDS: MIDODRINE HCL 10 MG TABLET PO ×4 (05:02→17:21)
[2024-06-30 05:43] LABS: Anion Gap 11 mmol/L (4-12); Blood Urea Nitrogen 32 mg/dL (9-20); Calcium 8.3 mg/dL (8.4-10.2); Carbon Dioxide 24 mmol/L (22-30); Chloride 102 mmol/L (98-107); Estimated CRCL calculation 58 ml/min; Estimated Glomerular Filt Rate 54; Glucose 125 mg/dL (65-110); Magnesium 2.1 mg/dL (1.6-2.3); Potassium 3.9 mmol/L (3.4-5.0); Sodium 137 mmol/L (137-145)
[2024-06-30 05:45] LABS: Band Neutrophils Percent 2 % (0-6); Monocytes Absolute Manual 0.38 K/mm3 (0.1-0.90); Monocytes Percent Manual 2 % (3-9); Neutrophils Absolute Manual 18.81 K/mm3 (1.3-6.7); Neutrophils Percent Manual 96 % (46-73); Platelet Estimate Adequate (Adequate); Total Cells Counted 100
[2024-06-30 05:47] LABS: Anisocytosis 1+; Hypochromasia 1+; Ovalocytes 1+; Schistocytes None Seen; Stomatocytes 1+
[2024-06-30 05:49] LABS: Troponin I 0.024 ng/mL (0.000-0.034)
[2024-06-30 05:56] LABS: Procalcitonin 3.9 ng/mL
[2024-06-30 06:10] LABS: Thyroid Stimulating Hormone Reflex 0.973 uIU/mL (0.465-4.68)
[2024-06-30 07:55] LABS: Glucose Point of Care 107 mg/dl (65-105)
[2024-06-30] MEDS: ASPIRIN 81 MG CHEWABLE TABLET PO (08:45)
[2024-06-30] MEDS: APIXABAN 5 MG TABLET PO ×2 (08:45→20:17)
--- NOTE | 2024-06-30 09:59 | PM.CNCAR ---
Assessment and Plan Assessment and plan (1) Atrial fibrillation: Qualifiers: Atrial fibrillation type: unspecified Qualified Code(s): I48.91 - Unspecified atrial fibrillation Code(s): I48.91 - Unspecified atrial fibrillation Status: Acute Assessment and Plan: This is a new diagnosis. Chronicity unknown. Rate control has been achieved with one dose of digoxin. Limited medical management options due to hypotension. Will continue to monitor on telemetry. If he has recurrent RVR would recommend either digoxin or amiodarone since he is hypotensive He has appropriately been started on anticoagulation Will check an echo Continue teleetry monitoring TSH normal Electrolytes WNL Compliance with CPAP History of Present Illness History of Present Illness Consult date/time: 06/30/24 09:59 Requesting physician: Luiz Zuñiga DO Reason For Visit: Ground Level Fall/Atrial Fibrillation/Leukocytosis Narrative: Miles Pinto is a 74 year old male admitted to the hospital for falls and generalized weakness. Cardiology is being consulted because of atrial fibrillation with rapid ventricular response. Upon arrival to the ER his EKG showed atrial fibrillation with heart rate 120. He has since been given one dose of digoxin and his heart rate is now in the 60's. Patient denies any history of atrial fibrillation and denies feeling any palpitations, chest pain, shortness of breath. He denies any other cardiac history except stating that his heart is shaped funny. He has no complaints at the time of my evaluation and is lying comfortably in bed. Review of Systems Review of Systems: All systems reviewed & are unremarkable except as noted in HPI and below PMFSH Past Medical History Medical History Adult hypothyroidism Chronic venous insufficiency Colon polyp Diabetes type 2, controlled GERD (gastroesophageal reflux disease) Hypercholesteremia Hypertension Morbid (severe) obesity due to excess calories Shingles Sleep apnea Ventral hernia Family History Family History Father Family history of heart disease in male family member before age 55, Onset Age: 64 Patient's father is Family history of cardiovascular disease Other Family history of kidney disease Family history of osteoarthritis Hypertension Social History Social History Smoking status: Never smoker Second hand tobacco smoke exposure: No Alcohol intake: never Substance use: never Substance use type: does not use Do You Feel Safe in your Home?: Yes Lack of Transportation: No Lack of Food: Never True Current Housing: I Have Housing Concerned About Future Housing: No Difficulty Paying Gas/Electric Bills: No Difficulty Paying for Meds: No Currently Unemployed: No Education: High School Diploma/GED Difficulty w/ Childcare or Family Care: No Gender identity (if verbalized by the patient): Male Spiritual care concerns: No Meds Home Medications and Allergies Home Medications Medication Instructions Recorded Confirmed Type ferrous sulfate 325 mg (65 mg 325 mg PO DAILY #90 tabs 10/31/20 06/30/24 Rx iron) tablet,delayed release omeprazole 40 mg capsule,delayed 40 mg PO DAILY #90 caps 10/31/20 06/30/24 Rx release glipizide 2.5 mg tablet, extended 2.5 mg PO DAILY #90 tabs 01/02/21 06/30/24 Rx release 24 hr furosemide 40 mg tablet See Rx Instructions .Route 03/01/21 06/30/24 Rx .COMPLEX #30 tabs levothyroxine 100 mcg tablet See Rx Instructions .Route 03/06/21 06/30/24 Rx .COMPLEX #90 tabs fluticasone propionate 50 100 g intranasal DAILY 06/12/21 06/30/24 History mcg/actuation nasal spray,suspension propylene glycol 1 %-glycerin 0.3 1 drp EACH EYE QID PRN dry eye(s) 05/09/23 06/30/24 Rx %
[2024-06-30 10:14] LABS: LDL Cholesterol Direct 36 mg/dL
[2024-06-30 10:15] LABS: Erythrocyte Sedimentation Rate 92 mm/hr (0-20)
[2024-06-30 10:34] LABS: Cholesterol 123 mg/dL (0-200); HDL Direct 48 mg/dL; Triglycerides 94 mg/dL (<150)
[2024-06-30] MEDS: PERFLUTREN LIPID MICROSPHERES 1.5 ML VIAL DILUTED TO 10 ML TOTAL VOLUME IV PUSH (10:45)
[2024-06-30] MEDS: FLUTICASONE PROPIONATE 0.05% NA SPR 16 GM BTL (*BKC) 2 SPRAY NASAL (10:53)
[2024-06-30] MEDS: LEVOTHYROXINE SODIUM 100 MCG TABLET PO (10:53)
[2024-06-30] MEDS: PANTOPRAZOLE 40 MG TABLET PO (10:53)
--- NOTE | 2024-06-30 11:27 | IVDEFINITY ---
Prior to administration of IV Definity the patient was educated on the risks and benefits of the imaging enhancing agent including potential adverse side effects. The patient verbalized understanding. Allergies were verified. No exclusion criteria were identified and at least one of the following inclusion criteria were met: 1) physician request, 2) patient technically difficult to image (per the [place] [employer] guidelines of two or more segments not discernable within the apical view), or 3) questionable left ventricular function. ?
[2024-06-30 11:50] LABS: Hemoglobin A1C 6.6 % (<5.7)
--- NOTE | 2024-06-30 13:23 | PM.EVENT ---
Event Note Event Note Event Note: Patient was seen by previous provider same day. Followed up with patient today in no acute distress and he has no complaints at this time. Patient denied CP, SOB, N/V, or dizziness. Patient meets for sepsis secondary to cellulitis/left lower extremity wound. WBC 21.3, tachycardiac, tachypnea, febrile at 100.8 with hypotension. Patient was started on Midodrine by previous provider and I gave a 1x bolus of 500mL NS remained hypotensive at 88/37 requested f/u BP and to use a larger cuff due to patient size. Patient does have severe JERMAN secondary to morbid obesity wears CPAP at night. Wound culture pending for LLE and wound consulted. MRSA was negative on Rocephin pending cultures. Patient is rate controlled at this time cardiology following, echo pending increased his home Eliquis to 5 mg b.i.d. however will not add any rate control medication due to current hypotension.
[2024-06-30 14:15] LABS: Influenza A QL RT-PCR Negative (Negative); Influenza B QL RT-PCR Negative (Negative); RSV RNA, RT-PCR Negative (Negative); SARS-CoV-2 RNA PCR Negative (Negative)
[2024-06-30] MEDS: HYDROcodone/acetaminophen (*CRX) 7.5-325 MG TABLET 1 TAB PO (20:17)
[2024-06-30] MEDS: SIMVASTATIN 20 MG TABLET 40 MG PO (20:18)
[2024-07-01] VITALS (19 sets, daily range): BP systolic 92–160; BP diastolic 48–74; PULSE 60–116; RESP 18–37; TEMP 36.3–37.5; O2SAT 92–97
[2024-07-01 04:58] LABS: Basophils Percent Auto 0.2 % (0.2-1.2); Eosinophils Absolute Auto 0.1 K/mm3 (0-0.3); Eosinophils Percent Auto 0.7 % (0-4.4); Hematocrit 35.6 % (42.0-52.0); Hemoglobin 11.2 g/dL (14.0-18.0); Immature Granulocyte Absolute 0.04 K/mm3 (0.00-0.031); Immature Granulocyte Percent A 0.4 % (0-0.5); Lymphocytes Absolute Auto 0.93 K/mm3 (0.9-3.2); Lymphocytes Percent Auto 9.7 % (18.3-44.2); Mean Corpuscular HGB Conc 31.5 g/dl (32-36); Mean Corpuscular Hemoglobin 31.3 pg (26-34); Mean Corpuscular Volume 99.4 fl (80-100); Mean Platelet Volume 9.9 fl (7.4-10.4); Monocytes Absolute Auto 0.6 K/mm3 (0.1-0.6); Monocytes Percent Auto 6.3 % (2.6-8.5); Neutrophils Absolute Auto 7.9 K/mm3 (1.3-6.7); Neutrophils Percent Auto 82.7 % (45.5-73.1); Platelet Count Result 234 k/mm3 (150-375); Red Blood Count 3.58 M/mm3 (4.6-6.20); Red Cell Distribution Width 16.5 % (11.5-14.5); White Blood Count 9.6 K/mm3 (4.5-10.0)
[2024-07-01 05:17] LABS: Alanine Aminotransferase 10 U/L (6-50); Albumin Level 3.5 g/dL (3.5-5.1); Alkaline Phosphatase 90 U/L (38-126); Anion Gap 9 mmol/L (4-12); Aspartate Amino Transferase 19 U/L (17-59); Bilirubin,Total 0.5 mg/dL (0.2-1.3); Blood Urea Nitrogen 43 mg/dL (9-20); Calcium 8.2 mg/dL (8.4-10.2); Carbon Dioxide 24 mmol/L (22-30); Chloride 103 mmol/L (98-107); Estimated CRCL calculation 63 ml/min; Estimated Glomerular Filt Rate 59; Glucose 108 mg/dL (65-110); Magnesium 2.3 mg/dL (1.6-2.3); Potassium 4.2 mmol/L (3.4-5.0); Sodium 136 mmol/L (137-145)
[2024-07-01] MEDS: LEVOTHYROXINE SODIUM 100 MCG TABLET PO (06:23)
--- NOTE | 2024-07-01 09:42 | PM.IMPN ---
Progress Note: A&P Assessment and Plan (1) Atrial fibrillation: Qualifiers: Atrial fibrillation type: unspecified Qualified Code(s): I48.91 - Unspecified atrial fibrillation Code(s): I48.91 - Unspecified atrial fibrillation Status: Acute (2) Ground-level fall: Code(s): W18.30XA - Fall on same level, unspecified, initial encounter Status: Acute (3) Leukocytosis: Qualifiers: Leukocytosis type: leukemoid reaction Qualified Code(s): D72.823 - Leukemoid reaction Code(s): D72.829 - Elevated white blood cell count, unspecified Status: Acute (4) Sleep apnea: Qualifiers: Sleep apnea type: obstructive Qualified Code(s): G47.33 - Obstructive sleep apnea (adult) (pediatric) Code(s): G47.30 - Sleep apnea, unspecified Status: Inactive (5) Morbid (severe) obesity due to excess calories: Code(s): E66.01 - Morbid (severe) obesity due to excess calories Status: Inactive (6) Adult hypothyroidism: Code(s): E03.9 - Hypothyroidism, unspecified Status: Inactive Plan # new onset atrial fibrillation -no history of atrial fibrillation -patient has known sleep apnea uses CPAP machine 14 cm H2O, states he is compliant -no other recent triggers for his AFib -checking TSH, he has known hypothyroidism, checking if his Synthroid needs to be adjusted -CHADS2 Vasc 5, starting Eliquis -patient was given a dose of digoxin and converted. Cardiology recommends digoxin or amiodarone should he have recurrent RVR. -07/01 patient remains in normal sinus rhythm. -patient was given 500 cc fluid bolus, will monitor closely as patient heart failure -echocardiogram shows LV systolic function normal with an EF estimated at 65-70% with mild increase of the LV wall thickness. Technically difficult study with limited view. Pulmonic valve was not well visualize but the right atrial pressure was elevated at 8 mmHg with inspiration. -continue supplemental oxygen as needed, on 4 L oxygen nasal cannula, wean as tolerated keep O2 saturation greater 90% -troponin negative, no active chest pain -continue monitor on telemetry -patient was given a dose of aspirin # leukocytosis -WBC count 21,000, unclear etiology, afebrile, UA negative, chest x-ray negative -patient was started on Rocephin -wound culture taken from left lower extremity ulcers showing Gram-positive cocci and Gram-positive bacilli -may be reactive leukocytosis. White count has been decreasing after starting antibiotics and resolution of AFib -blood cultures pending # debility -PT OT consulted for weakness and fall -patient's fall may be secondary to his new AFib # lower extremity wounds -consulting Wound Care for local wound care -appears to be chronic wounds b/l LE # chronic conditions -essential hypertension: Holding BP meds, Amlodipine, lisinopril -supplements: D3, iron -heart failure: Furosemide -type 2 diabetes: Glipizide -hypothyroidism: Levothyroxine, checking TSH -GERD: Omeprazole -hyperlipidemia: Simvastatin -insomnia: Trazodone -sleep apnea: Continue CPAP settings 14cm H2O Diet: Heart healthy DVT prophylaxis: starting Eliquis for afib Code status: Full code, patient's family to bring in advanced directive Disposition: Pending PT OT, will need placement, anticipate discharge in greater than 2 days Subjective Date/time seen: 07/01/24 09:42 Interval history: Patient is a 74-year-old male with past with history of morbid obesity, sleep apnea, essential hypertension, iron deficiency anemia, type 2 diabetes, congestive heart failure, hypothyroidism, GERD, hyperlipidemia presents to ED with complaints of a fall and generalized weakness. Patient does not ambulate much, he recently had a stay at [facility]. He has chronic wounds on his legs. He states he is compliant with his CPAP machine set at 14 cm H2O. He does not recall having a history of AFib. He has known histor
[2024-07-01] MEDS: ASPIRIN 81 MG CHEWABLE TABLET PO (10:21)
[2024-07-01] MEDS: MIDODRINE HCL 10 MG TABLET PO ×2 (10:21→13:20)
[2024-07-01] MEDS: PANTOPRAZOLE 40 MG TABLET PO (10:21)
[2024-07-01] MEDS: APIXABAN 5 MG TABLET PO ×2 (10:21→20:15)
[2024-07-01] MEDS: FERROUS SULFATE 325 MG TABLET DR PO (10:21)
--- NOTE | 2024-07-01 11:18 | PM.PNCARD ---
Progress Note: A&P Assessment and Plan (1) Atrial fibrillation: Qualifiers: Atrial fibrillation type: unspecified Qualified Code(s): I48.91 - Unspecified atrial fibrillation Code(s): I48.91 - Unspecified atrial fibrillation Status: Acute Assessment and Plan: This is a new diagnosis. Chronicity unknown. Rate control has been achieved with one dose of digoxin. Limited medical management options due to hypotension. Will continue to monitor on telemetry. If he has recurrent RVR would recommend either Digoxin or Amiodarone since he had issues with hypotension. If blood pressures normalize, then can do Metoprolol. However, he is currently rate controlled without needing any AV izaiah blocking agents. He has appropriately been started on anticoagulation Echo with preserved LVEF Compliance with CPAP Cardiology will sign off at this time. Please call us back if needed. (2) Essential (primary) hypertension: Code(s): I10 - Essential (primary) hypertension Status: Acute Assessment and Plan: Currently on Midodrine as he had issues with low blood pressure. Subjective Date/time seen: 07/01/24 11:18 Interval history: Reason for visit: Atrial fibrillation HPI: Miles Pinto is a 74 year old male admitted to the hospital for falls and generalized weakness. Cardiology is being consulted because of atrial fibrillation with rapid ventricular response. Upon arrival to the ER his EKG showed atrial fibrillation with heart rate 120. He has since been given one dose of digoxin and his heart rate is now in the 60's. Patient denies any history of atrial fibrillation and denies feeling any palpitations, chest pain, shortness of breath. He denies any other cardiac history except stating that his heart is shaped funny. He has no complaints at the time of my evaluation and is lying comfortably in bed. Date of service 07/01: Feeling okay. Tele shows rate controlled AFIB. Review of Systems Review of Systems: All systems reviewed & are unremarkable except as noted in HPI and below (HPI) Exam Const: General: comfortable and no acute distress Other: Morbidly obese HENMT: Mouth: Yes moist mucous membranes Eyes: General: appearance normal, both eyes and all related structures Sclera: sclerae normal Resp: Effort & Inspection: normal respiratory effort Cardio: Rhythm: abnormal rhythm irregularly irregular Skin: General skin exam: normal color Neuro: Speech: normal speech Psych: Mental Status: mental status grossly normal Affect: normal affect Objective Data Vital Signs Vital Signs: Vital Signs - 24 hr 06/30/24 11:43 06/30/24 13:20 06/30/24 15:58 Temperature 36.9 C 36.8 C Pulse Rate 88 88 98 Respiratory Rate 24 H 28 H Blood Pressure 88/37 L 93/42 L 93/51 L Pulse Oximetry 91 100 Oxygen Delivery Fraction of Inspired Oxygen 06/30/24 12:00 06/30/24 12:00 06/30/24 14:00 Temperature Pulse Rate 86 98 70 Respiratory Rate 28 H Blood Pressure Pulse Oximetry 100 Oxygen Delivery Room Air Fraction of Inspired Oxygen 06/30/24 16:00 06/30/24 16:00 06/30/24 18:00 Temperature Pulse Rate 89 98 100 Respiratory Rate 28 H Blood Pressure Pulse Oximetry 100 Oxygen Delivery Room Air Fraction of Inspired Oxygen 06/30/24 20:00 06/30/24 20:00 06/30/24 22:40 Temperature 37.3 C Pulse Rate 76 97 Respiratory Rate 18 24 H Blood Pressure 104/40 L Pulse Oximetry 95 94 Oxygen Delivery Room Air Autopap Fraction of Inspired Oxygen 06/30/24 20:00 06/30/24 22:00 06/30/24 23:50 Temperature Pulse Rate 98 83 Respiratory Rate Blood Pressure Pulse Oximetry Oxygen Delivery CPAP Fraction of Inspired Oxygen 07/01/24 00:00 07/01/24 00:00 07/01/24 02:00 Temperature 37.2 C Pulse Rate 78 78 73 Respiratory Rate 18 Blood Pressure 92/48 L Pulse Oximetry 92 Oxygen Delivery Fraction of Inspired
[2024-07-01] MEDS: METOPROLOL TARTRATE 25 MG TABLET PO (18:43)
[2024-07-01] MEDS: SIMVASTATIN 20 MG TABLET 40 MG PO (20:15)
[2024-07-01] MEDS: HYDROcodone/acetaminophen (*CRX) 7.5-325 MG TABLET 1 TAB PO (20:18)
[2024-07-02] VITALS (21 sets, daily range): BP systolic 97–139; BP diastolic 42–84; PULSE 71–148; RESP 16–28; TEMP 36.4–37; O2SAT 93–100
[2024-07-02 05:56] LABS: Hematocrit 37.3 % (42.0-52.0); Hemoglobin 11.5 g/dL (14.0-18.0); Mean Corpuscular HGB Conc 30.8 g/dl (32-36); Mean Corpuscular Hemoglobin 30.8 pg (26-34); Mean Platelet Volume 9.8 fl (7.4-10.4); Platelet Count Result 259 k/mm3 (150-375); Red Blood Count 3.73 M/mm3 (4.6-6.20); Red Cell Distribution Width 16.3 % (11.5-14.5); White Blood Count 9.2 K/mm3 (4.5-10.0)
[2024-07-02] MEDS: LEVOTHYROXINE SODIUM 100 MCG TABLET PO (06:20)
[2024-07-02 06:30] LABS: Alanine Aminotransferase 10 U/L (6-50); Albumin Level 3.6 g/dL (3.5-5.1); Alkaline Phosphatase 98 U/L (38-126); Anion Gap 8 mmol/L (4-12); Aspartate Amino Transferase 19 U/L (17-59); Bilirubin,Total 0.6 mg/dL (0.2-1.3); Blood Urea Nitrogen 28 mg/dL (9-20); Calcium 8.4 mg/dL (8.4-10.2); Carbon Dioxide 28 mmol/L (22-30); Chloride 103 mmol/L (98-107); Estimated CRCL calculation 82 ml/min; Estimated Glomerular Filt Rate > 60; Glucose 143 mg/dL (65-110); Potassium 4.5 mmol/L (3.4-5.0); Sodium 139 mmol/L (137-145)
[2024-07-02] MEDS: PANTOPRAZOLE 40 MG TABLET PO (08:07)
[2024-07-02] MEDS: APIXABAN 5 MG TABLET PO ×2 (08:07→21:22)
[2024-07-02] MEDS: MIDODRINE HCL 10 MG TABLET PO ×2 (08:07→21:22)
[2024-07-02] MEDS: FERROUS SULFATE 325 MG TABLET DR PO (08:07)
[2024-07-02] MEDS: ACETAMINOPHEN 325 MG TABLET 650 MG PO ×2 (08:07→18:54)
[2024-07-02] MEDS: ASPIRIN 81 MG CHEWABLE TABLET PO (08:07)
[2024-07-02] MEDS: METOPROLOL TARTRATE 25 MG TABLET PO ×2 (08:08→22:36)
[2024-07-02] MEDS: FLUTICASONE PROPIONATE 0.05% NA SPR 16 GM BTL (*BKC) 2 SPRAY NASAL (08:08)
--- NOTE | 2024-07-02 08:58 | PM.IMPN ---
Progress Note: A&P Assessment and Plan (1) Atrial fibrillation: Qualifiers: Atrial fibrillation type: unspecified Qualified Code(s): I48.91 - Unspecified atrial fibrillation Code(s): I48.91 - Unspecified atrial fibrillation Status: Acute (2) Ground-level fall: Code(s): W18.30XA - Fall on same level, unspecified, initial encounter Status: Acute (3) Leukocytosis: Qualifiers: Leukocytosis type: leukemoid reaction Qualified Code(s): D72.823 - Leukemoid reaction Code(s): D72.829 - Elevated white blood cell count, unspecified Status: Acute (4) Sleep apnea: Qualifiers: Sleep apnea type: obstructive Qualified Code(s): G47.33 - Obstructive sleep apnea (adult) (pediatric) Code(s): G47.30 - Sleep apnea, unspecified Status: Inactive (5) Morbid (severe) obesity due to excess calories: Code(s): E66.01 - Morbid (severe) obesity due to excess calories Status: Inactive (6) Adult hypothyroidism: Code(s): E03.9 - Hypothyroidism, unspecified Status: Inactive Plan # new onset atrial fibrillation -no history of atrial fibrillation -patient has known sleep apnea uses CPAP machine 14 cm H2O, states he is compliant -no other recent triggers for his A-Fib other than possible infection -checking TSH--normal -CHADS2 Vasc 5, starting Eliquis -patient was given a dose of digoxin and converted. Cardiology recommends digoxin or amiodarone should he have recurrent RVR. -patient was given 500 cc fluid bolus, will monitor closely as patient heart failure -echocardiogram shows LV systolic function normal with an EF estimated at 65-70% with mild increase of the LV wall thickness. Technically difficult study with limited view. Pulmonic valve was not well visualize but the right atrial pressure was elevated at 8 mmHg with inspiration. -continue supplemental oxygen as needed, on 4 L oxygen nasal cannula, wean as tolerated keep O2 saturation greater 90% -troponin negative, no active chest pain -continue monitor on telemetry -patient was given a dose of aspirin -07/02: received a call last night that patient was in a-fib again with rate in the 90-100's. Blood pressures had improved so he was started on Metoprolol tartrate 25 mg PO BID. Today he is still in a-fib with rates in the 80-90's. Blood pressures are stable. Stopping Midodrine. Resume Lasix as he feels and looks more short of breath. Hold on resuming other anti-hypertensives for now. # leukocytosis -WBC count 21,000, unclear etiology, afebrile, UA negative, chest x-ray negative -patient was started on Rocephin -wound culture taken from left lower extremity ulcers showing Gram-positive cocci and Gram-positive bacilli -may be reactive leukocytosis. White count has been decreasing after starting antibiotics and resolution of A-Fib -blood cultures NGTD # debility -PT OT consulted for weakness and fall -patient's fall may be secondary to his new AFib # lower extremity wounds -consulting Wound Care for local wound care -appears to be chronic wounds b/l LE # chronic conditions -essential hypertension: Continue holding BP meds, Amlodipine, lisinopril until we see how his blood pressure does with addition of metoprolol, resumption of lasix, and stopping midodrine. -supplements: D3, iron -heart failure: Furosemide, resume today 07/02 -type 2 diabetes: Glipizide -hypothyroidism: Levothyroxine, checking TSH -GERD: Omeprazole -hyperlipidemia: Simvastatin -insomnia: Trazodone -sleep apnea: Continue CPAP settings 14cm H2O Diet: Heart healthy DVT prophylaxis: starting Eliquis for afib Code status: Full code, patient's family to bring in advanced directive Disposition: Pending PT OT, will need placement, anticipate discharge in greater than 2 days Subjective Date/time seen: 07/02/24 08:58 Interval history: Patient is a 74-year-old male with past
[2024-07-02] MEDS: FUROSEMIDE 40 MG TABLET BY MOUTH (12:33)
[2024-07-02] MEDS: DOXYCYCLINE HYCLATE 100 MG TABLET PO ×2 (14:02→21:22)
[2024-07-02] MEDS: SIMVASTATIN 20 MG TABLET 40 MG PO (21:22)
[2024-07-03] VITALS (20 sets, daily range): BP systolic 110–160; BP diastolic 46–92; PULSE 68–111; RESP 18–28; TEMP 36.2–37; O2SAT 94–100
[2024-07-03 04:47] LABS: Hematocrit 36.9 % (42.0-52.0); Hemoglobin 11.4 g/dL (14.0-18.0); Mean Corpuscular HGB Conc 30.9 g/dl (32-36); Mean Corpuscular Hemoglobin 30.6 pg (26-34); Mean Corpuscular Volume 98.9 fl (80-100); Mean Platelet Volume 9.5 fl (7.4-10.4); Platelet Count Result 277 k/mm3 (150-375); Red Blood Count 3.73 M/mm3 (4.6-6.20); White Blood Count 9.3 K/mm3 (4.5-10.0)
[2024-07-03 05:03] LABS: Alanine Aminotransferase 12 U/L (6-50); Albumin Level 3.6 g/dL (3.5-5.1); Alkaline Phosphatase 102 U/L (38-126); Anion Gap 9 mmol/L (4-12); Aspartate Amino Transferase 19 U/L (17-59); Bilirubin,Total 0.7 mg/dL (0.2-1.3); Blood Urea Nitrogen 29 mg/dL (9-20); Calcium 8.7 mg/dL (8.4-10.2); Carbon Dioxide 29 mmol/L (22-30); Chloride 102 mmol/L (98-107); Estimated CRCL calculation 74 ml/min; Estimated Glomerular Filt Rate > 60; Glucose 136 mg/dL (65-110); Potassium 4.9 mmol/L (3.4-5.0); Sodium 140 mmol/L (137-145)
[2024-07-03] MEDS: LEVOTHYROXINE SODIUM 100 MCG TABLET PO (06:13)
[2024-07-03] MEDS: ACETAMINOPHEN 325 MG TABLET 650 MG PO ×3 (06:22→20:17)
[2024-07-03] MEDS: METOPROLOL TARTRATE 25 MG TABLET PO ×2 (08:27→20:17)
[2024-07-03] MEDS: FERROUS SULFATE 325 MG TABLET DR PO (08:27)
[2024-07-03] MEDS: DOXYCYCLINE HYCLATE 100 MG TABLET PO ×2 (08:27→20:17)
[2024-07-03] MEDS: ASPIRIN 81 MG CHEWABLE TABLET PO (08:27)
[2024-07-03] MEDS: APIXABAN 5 MG TABLET PO ×2 (08:27→20:17)
[2024-07-03] MEDS: MIDODRINE HCL 10 MG TABLET PO (08:27)
[2024-07-03] MEDS: PANTOPRAZOLE 40 MG TABLET PO (08:27)
[2024-07-03] MEDS: FUROSEMIDE 40 MG TABLET BY MOUTH (08:28)
[2024-07-03] MEDS: FLUTICASONE PROPIONATE 0.05% NA SPR 16 GM BTL (*BKC) 2 SPRAY NASAL (08:28)
--- NOTE | 2024-07-03 11:02 | PM.PNCARD ---
Progress Note: A&P Assessment and Plan (1) Atrial fibrillation: Qualifiers: Atrial fibrillation type: unspecified Qualified Code(s): I48.91 - Unspecified atrial fibrillation Code(s): I48.91 - Unspecified atrial fibrillation Status: Acute Assessment and Plan: This is a new diagnosis. Chronicity unknown. Rate control with metoprolol. Will continue to monitor on telemetry. He has appropriately been started on anticoagulation Echo with preserved LVEF Compliance with CPAP (2) Essential (primary) hypertension: Code(s): I10 - Essential (primary) hypertension Status: Acute Assessment and Plan: Currently on Midodrine as he had issues with low blood pressure. Subjective Date/time seen: 07/03/24 11:02 Interval history: Reason for visit: Atrial fibrillation HPI: Miles Pinto is a 74 year old male admitted to the hospital for falls and generalized weakness. Cardiology is being consulted because of atrial fibrillation with rapid ventricular response. Upon arrival to the ER his EKG showed atrial fibrillation with heart rate 120. He has since been given one dose of digoxin and his heart rate is now in the 60's. Patient denies any history of atrial fibrillation and denies feeling any palpitations, chest pain, shortness of breath. He denies any other cardiac history except stating that his heart is shaped funny. He has no complaints at the time of my evaluation and is lying comfortably in bed. Date of service 07/01: Feeling okay. Tele shows rate controlled AFIB. Date of service 07/03/2024: Had some hypotension overnight, started on midodrine. Feeling better today in regards to his breathing. Heart rate is controlled. Review of Systems Review of Systems: All systems reviewed & are unremarkable except as noted in HPI and below (HPI) Exam Const: General: comfortable, no acute distress, alert and awake Orientation/consciousness: patient oriented x3 Other: Morbidly obese HENMT: Head: normal to inspection Mouth: Yes moist mucous membranes Eyes: General: appearance normal, both eyes and all related structures Sclera: sclerae normal Pupils: Equal, round and reactive pupils present Neck: Neck: normal visual inspection and supple Carotids: normal carotid upstroke Other: Unable to assess for JVD due to body habitus Resp: Effort & Inspection: normal respiratory effort Auscultation: clear to auscultation bilaterally Cardio: Rate: regular rate Rhythm: abnormal rhythm irregularly irregular Heart sounds: S1 normal heart sound present, S2 normal heart sound present and no murmurs GI: Auscultation: normal bowel sounds Skin: General skin exam: normal color and wounds noted Wounds: wounds noted Other: Bilateral lower leg wounds and edema Neuro: General: patient oriented x3 Cranial nerves: Yes Equal, round and reactive pupils present Speech: normal speech Extrem: General: abnormal to inspection Psych: Appearance: grossly normal Mental Status: mental status grossly normal Affect: normal affect Objective Data Vital Signs Vital Signs: Vital Signs - 24 hr 07/02/24 12:07 07/02/24 13:23 07/02/24 16:00 Temperature 37.0 C 36.9 C Pulse Rate 80 110 H Respiratory Rate 16 28 H Blood Pressure 139/84 110/55 L Pulse Oximetry 98 100 Oxygen Delivery Room Air Oxygen Flow Rate Fraction of Inspired Oxygen 07/02/24 12:00 07/02/24 14:00 07/02/24 16:00 Temperature Pulse Rate 148 H 124 H 128 H Respiratory Rate Blood Pressure Pulse Oximetry Oxygen Delivery Oxygen Flow Rate Fraction of Inspired Oxygen 07/02/24 12:00 07/02/24 16:00 07/02/24 17:37 Temperature Pulse Rate 104 H Respiratory Rate Blood Pressure Pulse Oximetry 100 95 Oxygen Delivery Room Air Nasal Cannula Oxygen Flow Rate 2 Fraction of Inspired Oxygen 07/02/24 18:00 07/02/24 20:01 07/02/24 22:27 Temperature 36.6 C Pulse
[2024-07-03] MEDS: ARTIFICIAL TEARS OPHTH SOLN 15 ML BOTTLE 1 DROP EACH EYE (12:16)
[2024-07-03 12:40] LABS: Glucose Point of Care 126 mg/dl (65-105)
--- NOTE | 2024-07-03 15:53 | PM.IMPN ---
Progress Note: A&P Assessment and Plan (1) Atrial fibrillation: Qualifiers: Atrial fibrillation type: unspecified Qualified Code(s): I48.91 - Unspecified atrial fibrillation Code(s): I48.91 - Unspecified atrial fibrillation Status: Acute (2) Ground-level fall: Code(s): W18.30XA - Fall on same level, unspecified, initial encounter Status: Acute (3) Leukocytosis: Qualifiers: Leukocytosis type: leukemoid reaction Qualified Code(s): D72.823 - Leukemoid reaction Code(s): D72.829 - Elevated white blood cell count, unspecified Status: Acute (4) Sleep apnea: Qualifiers: Sleep apnea type: obstructive Qualified Code(s): G47.33 - Obstructive sleep apnea (adult) (pediatric) Code(s): G47.30 - Sleep apnea, unspecified Status: Inactive (5) Morbid (severe) obesity due to excess calories: Code(s): E66.01 - Morbid (severe) obesity due to excess calories Status: Inactive (6) Adult hypothyroidism: Code(s): E03.9 - Hypothyroidism, unspecified Status: Inactive Plan # new onset atrial fibrillation -no history of atrial fibrillation -patient has known sleep apnea uses CPAP machine 14 cm H2O, states he is compliant -no other recent triggers for his A-Fib other than possible infection -checking TSH--normal -CHADS2 Vasc 5, starting Eliquis -patient was given a dose of digoxin and converted. Cardiology recommends digoxin or amiodarone should he have recurrent RVR. -patient was given 500 cc fluid bolus, will monitor closely as patient heart failure -echocardiogram shows LV systolic function normal with an EF estimated at 65-70% with mild increase of the LV wall thickness. Technically difficult study with limited view. Pulmonic valve was not well visualize but the right atrial pressure was elevated at 8 mmHg with inspiration. -oxygen weaned to room air -troponin negative, no active chest pain -continue monitor on telemetry -patient was given a dose of aspirin -07/03:Metoprolol was increased to every 6 hours yesterday and his Lasix 40 mg PO resumed. 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 They resumed the midodrine and decreased his metoprolol back to BID. -On Metoprolol tartrate 25 mg PO BID. Heart rate is a-fib with rate in the 90's. -Stopping midodrine again today after discussion with cardiology. # leukocytosis -WBC count 21,000, unclear etiology, afebrile, UA negative, chest x-ray negative -patient was started on Rocephin -wound culture taken from left lower extremity ulcers showing Gram-positive cocci and Gram-positive bacilli -may be reactive leukocytosis. White count has been decreasing after starting antibiotics and resolution of A-Fib -blood cultures NGTD # debility -PT OT consulted for weakness and fall -patient's fall may be secondary to his new AFib # lower extremity wounds -consulting Wound Care for local wound care -appears to be chronic wounds b/l LE # chronic conditions -essential hypertension: Continue holding BP meds, Amlodipine, lisinopril until we see how his blood pressure does with addition of metoprolol, resumption of lasix, and stopping midodrine. -supplements: D3, iron -heart failure: Furosemide, resume today 07/02 -type 2 diabetes: Glipizide -hypothyroidism: Levothyroxine, checking TSH -GERD: Omeprazole -hyperlipidemia: Simvastatin -insomnia: Trazodone -sleep apnea: Continue CPAP settings 14cm H2O Diet: Heart healthy DVT prophylaxis: starting Eliquis for afib Code status: Full code, patient's family to bring in advanced directive Disposition: Pending PT OT, will need placement, anticipate discharge in greater than 2 days Subjective Date/time seen: 07/03/24 15:53 Interval history: Patient is a 74-year-old male with past with history of morbid obesity, sleep apnea, essential hypertension, iron deficiency a
[2024-07-03] MEDS: SIMVASTATIN 20 MG TABLET 40 MG PO (20:17)
[2024-07-04] VITALS (16 sets, daily range): BP systolic 125–139; BP diastolic 59–97; PULSE 82–128; RESP 20–27; TEMP 36.6–36.9; O2SAT 92–100
[2024-07-04] MEDS: ACETAMINOPHEN 325 MG TABLET 650 MG PO (04:19)
[2024-07-04 04:22] LABS: Hematocrit 34.8 % (42.0-52.0); Hemoglobin 10.8 g/dL (14.0-18.0); Mean Corpuscular Hemoglobin 30.3 pg (26-34); Mean Corpuscular Volume 97.8 fl (80-100); Mean Platelet Volume 9.3 fl (7.4-10.4); Platelet Count Result 282 k/mm3 (150-375); Red Blood Count 3.56 M/mm3 (4.6-6.20); Red Cell Distribution Width 15.9 % (11.5-14.5); White Blood Count 7.7 K/mm3 (4.5-10.0)
[2024-07-04 04:41] LABS: Alanine Aminotransferase 12 U/L (6-50); Albumin Level 3.4 g/dL (3.5-5.1); Alkaline Phosphatase 107 U/L (38-126); Anion Gap 7 mmol/L (4-12); Aspartate Amino Transferase 23 U/L (17-59); Bilirubin,Total 0.6 mg/dL (0.2-1.3); Blood Urea Nitrogen 30 mg/dL (9-20); Calcium 8.4 mg/dL (8.4-10.2); Carbon Dioxide 30 mmol/L (22-30); Chloride 101 mmol/L (98-107); Estimated CRCL calculation 75 ml/min; Estimated Glomerular Filt Rate > 60; Glucose 134 mg/dL (65-110); Potassium 4.5 mmol/L (3.4-5.0); Sodium 138 mmol/L (137-145)
[2024-07-04] MEDS: LEVOTHYROXINE SODIUM 100 MCG TABLET PO (06:00)
[2024-07-04] MEDS: ASPIRIN 81 MG CHEWABLE TABLET PO (09:21)
[2024-07-04] MEDS: APIXABAN 5 MG TABLET PO ×2 (09:21→20:25)
[2024-07-04] MEDS: PANTOPRAZOLE 40 MG TABLET PO (09:22)
[2024-07-04] MEDS: METOPROLOL TARTRATE 25 MG TABLET PO (09:22)
[2024-07-04] MEDS: DOXYCYCLINE HYCLATE 100 MG TABLET PO ×2 (09:22→20:25)
[2024-07-04] MEDS: FUROSEMIDE 40 MG TABLET BY MOUTH (09:22)
[2024-07-04] MEDS: FERROUS SULFATE 325 MG TABLET DR PO (09:22)
[2024-07-04] MEDS: FLUTICASONE PROPIONATE 0.05% NA SPR 16 GM BTL (*BKC) 2 SPRAY NASAL (09:22)
[2024-07-04] MEDS: METOPROLOL TARTRATE 12.5 MG TABLET PO (12:33)
--- NOTE | 2024-07-04 13:55 | PC.NURSE ---
This patient, Miles Pinto, was received from on 07/04/24 at 1355. Patient/family oriented to unit policies and routines.
--- NOTE | 2024-07-04 14:06 | PM.IMPN ---
Progress Note: A&P Assessment and Plan (1) Atrial fibrillation: Qualifiers: Atrial fibrillation type: unspecified Qualified Code(s): I48.91 - Unspecified atrial fibrillation Code(s): I48.91 - Unspecified atrial fibrillation Status: Acute (2) Ground-level fall: Code(s): W18.30XA - Fall on same level, unspecified, initial encounter Status: Acute (3) Leukocytosis: Qualifiers: Leukocytosis type: leukemoid reaction Qualified Code(s): D72.823 - Leukemoid reaction Code(s): D72.829 - Elevated white blood cell count, unspecified Status: Acute (4) Sleep apnea: Qualifiers: Sleep apnea type: obstructive Qualified Code(s): G47.33 - Obstructive sleep apnea (adult) (pediatric) Code(s): G47.30 - Sleep apnea, unspecified Status: Inactive (5) Morbid (severe) obesity due to excess calories: Code(s): E66.01 - Morbid (severe) obesity due to excess calories Status: Inactive (6) Adult hypothyroidism: Code(s): E03.9 - Hypothyroidism, unspecified Status: Inactive Plan # new onset atrial fibrillation -no history of atrial fibrillation -patient has known sleep apnea uses CPAP machine 14 cm H2O, states he is compliant -no other recent triggers for his A-Fib other than possible infection -checking TSH--normal -CHADS2 Vasc 5, starting Eliquis -patient was given a dose of digoxin and converted. Cardiology recommends digoxin or amiodarone should he have recurrent RVR. -patient was given 500 cc fluid bolus, will monitor closely as patient heart failure -echocardiogram shows LV systolic function normal with an EF estimated at 65-70% with mild increase of the LV wall thickness. Technically difficult study with limited view. Pulmonic valve was not well visualize but the right atrial pressure was elevated at 8 mmHg with inspiration. -oxygen weaned to room air -troponin negative, no active chest pain -continue monitor on telemetry -patient was given a dose of aspirin -On Metoprolol tartrate 25 mg PO BID. Heart rate is a-fib with rate 111's. -increasing metoprolol to 37.5 mg PO BID. Hopefully his blood pressure will tolerate it -Stopped midodrine yesterday after discussion with cardiology. # leukocytosis -WBC count 21,000, unclear etiology, afebrile, UA negative, chest x-ray negative -patient was started on Rocephin -wound culture taken from left lower extremity ulcers showing Gram-positive cocci and Gram-positive bacilli -may be reactive leukocytosis. White count has been decreasing after starting antibiotics and resolution of A-Fib -blood cultures NGTD RESOLVED # debility -PT OT consulted for weakness and fall -patient's fall may be secondary to his new AFib # lower extremity wounds -consulting Wound Care for local wound care -appears to be chronic wounds b/l LE # chronic conditions -essential hypertension: Continue holding BP meds, Amlodipine, lisinopril until we see how his blood pressure does with addition of metoprolol, resumption of Lasix, and stopping midodrine. -supplements: D3, iron -heart failure: Furosemide, resume today 07/02 -type 2 diabetes: Glipizide -hypothyroidism: Levothyroxine, checking TSH -GERD: Omeprazole -hyperlipidemia: Simvastatin -insomnia: Trazodone -sleep apnea: Continue CPAP settings 14cm H2O Diet: Heart healthy DVT prophylaxis: starting Eliquis for a-fib Code status: Full code, patient's family to bring in advanced directive Disposition: Pending PT OT, will need placement, anticipate discharge in greater than 2 days Subjective Date/time seen: 07/04/24 14:06 Interval history: Patient is a 74-year-old male with past with history of morbid obesity, sleep apnea, essential hypertension, iron deficiency anemia, type 2 diabetes, congestive heart failure, hypothyroidism, GERD, hyperlipidemia presents to ED with complaints of a fall and generalized weakn
[2024-07-04 14:13] LABS: Glucose Point of Care 180 mg/dl (65-105)
--- NOTE | 2024-07-04 14:37 | PC.NURSE ---
This patient, Miles Pinto, was transferred to [facility] on 07/04/24 at 1345. Personal belongings sent with patient. Report given to SHANTELL Galvan. Appropriate documentation sent with patient.
[2024-07-04 17:12] LABS: Glucose Point of Care 118 mg/dl (65-105)
[2024-07-04] MEDS: METOPROLOL TARTRATE 12.5 MG TABLET 37.5 MG PO (20:24)
[2024-07-04] MEDS: SIMVASTATIN 20 MG TABLET 40 MG PO (20:25)
[2024-07-04] MEDS: HYDROcodone/acetaminophen (*CRX) 7.5-325 MG TABLET 1 TAB PO (20:26)
[2024-07-04 20:43] LABS: Glucose Point of Care 147 mg/dl (65-105)
[2024-07-05] VITALS: BP 130/95; PULSE 105; PULSE 108; RESP 18; TEMP 37.2; O2SAT 94
[2024-07-05 01:50] VITALS: PULSE 95; RESP 26; O2SAT 95
[2024-07-05 04:00] VITALS: PULSE 96
[2024-07-05 05:28] LABS: Hematocrit 35.5 % (42.0-52.0); Hemoglobin 11.1 g/dL (14.0-18.0); Mean Corpuscular HGB Conc 31.3 g/dl (32-36); Mean Corpuscular Hemoglobin 30.7 pg (26-34); Mean Corpuscular Volume 98.1 fl (80-100); Mean Platelet Volume 9.8 fl (7.4-10.4); Platelet Count Result 327 k/mm3 (150-375); Red Blood Count 3.62 M/mm3 (4.6-6.20); Red Cell Distribution Width 15.9 % (11.5-14.5); White Blood Count 7.7 K/mm3 (4.5-10.0)
[2024-07-05 05:40] LABS: Alanine Aminotransferase 18 U/L (6-50); Albumin Level 3.5 g/dL (3.5-5.1); Alkaline Phosphatase 115 U/L (38-126); Anion Gap 8 mmol/L (4-12); Aspartate Amino Transferase 33 U/L (17-59); Bilirubin,Total 0.6 mg/dL (0.2-1.3); Blood Urea Nitrogen 31 mg/dL (9-20); Calcium 8.5 mg/dL (8.4-10.2); Carbon Dioxide 31 mmol/L (22-30); Chloride 101 mmol/L (98-107); Estimated CRCL calculation 83 ml/min; Estimated Glomerular Filt Rate > 60; Glucose 138 mg/dL (65-110); Potassium 4.4 mmol/L (3.4-5.0); Sodium 140 mmol/L (137-145)
[2024-07-05] MEDS: LEVOTHYROXINE SODIUM 100 MCG TABLET PO (05:52)
[2024-07-05 08:00] VITALS: BP 141/77; PULSE 96; RESP 16; TEMP 37; O2SAT 97
[2024-07-05] MEDS: DOXYCYCLINE HYCLATE 100 MG TABLET PO (08:05)
[2024-07-05] MEDS: ASPIRIN 81 MG CHEWABLE TABLET PO (08:07)
[2024-07-05 08:36] LABS: Glucose Point of Care 126 mg/dl (65-105)
[2024-07-05] MEDS: FERROUS SULFATE 325 MG TABLET DR PO (09:27)
[2024-07-05] MEDS: APIXABAN 5 MG TABLET PO (09:27)
[2024-07-05] MEDS: PANTOPRAZOLE 40 MG TABLET PO (09:28)
[2024-07-05] MEDS: FUROSEMIDE 40 MG TABLET BY MOUTH (09:28)
[2024-07-05] MEDS: FLUTICASONE PROPIONATE 0.05% NA SPR 16 GM BTL (*BKC) 2 SPRAY NASAL (09:28)
[2024-07-05] MEDS: amLODIPine BESYLATE 5 MG TABLET PO (09:36)
[2024-07-05 09:52] VITALS: PULSE 107
[2024-07-05] MEDS: METOPROLOL TARTRATE 12.5 MG TABLET 37.5 MG PO (09:52)
[2024-07-05 12:19] LABS: Glucose Point of Care 140 mg/dl (65-105)
[2024-07-05 15:13] VITALS: BP 141/77
--- NOTE | 2024-07-05 15:23 | PM.DS ---
DS: Admitting Diagnosis Discharge Date 07/05 Admitting Diagnosis fall DS: Discharge Diagnosis Discharge Diagnosis (1) Atrial fibrillation: Qualifiers: Atrial fibrillation type: unspecified Qualified Code(s): I48.91 - Unspecified atrial fibrillation Code(s): I48.91 - Unspecified atrial fibrillation Status: Acute (2) Ground-level fall: Code(s): W18.30XA - Fall on same level, unspecified, initial encounter Status: Acute (3) Leukocytosis: Qualifiers: Leukocytosis type: leukemoid reaction Qualified Code(s): D72.823 - Leukemoid reaction Code(s): D72.829 - Elevated white blood cell count, unspecified Status: Acute (4) Sleep apnea: Qualifiers: Sleep apnea type: obstructive Qualified Code(s): G47.33 - Obstructive sleep apnea (adult) (pediatric) Code(s): G47.30 - Sleep apnea, unspecified Status: Inactive (5) Morbid (severe) obesity due to excess calories: Code(s): E66.01 - Morbid (severe) obesity due to excess calories Status: Inactive (6) Adult hypothyroidism: Code(s): E03.9 - Hypothyroidism, unspecified Status: Inactive Plan # new onset atrial fibrillation -no history of atrial fibrillation -patient has known sleep apnea uses CPAP machine 14 cm H2O, states he is compliant -no other recent triggers for his A-Fib other than possible infection -checking TSH--normal -CHADS2 Vasc 5, starting Eliquis -patient was given a dose of digoxin and converted. Cardiology recommends digoxin or amiodarone should he have recurrent RVR. -patient was given 500 cc fluid bolus, will monitor closely as patient heart failure -echocardiogram shows LV systolic function normal with an EF estimated at 65-70% with mild increase of the LV wall thickness. Technically difficult study with limited view. Pulmonic valve was not well visualize but the right atrial pressure was elevated at 8 mmHg with inspiration. -oxygen weaned to room air -troponin negative, no active chest pain -continue monitor on telemetry -patient was given a dose of aspirin -On Metoprolol tartrate 25 mg PO BID. Heart rate is a-fib with rate 111's. -increasing metoprolol to 37.5 mg PO BID. Hopefully his blood pressure will tolerate it -Stopped midodrine yesterday after discussion with cardiology. # leukocytosis -WBC count 21,000, unclear etiology, afebrile, UA negative, chest x-ray negative -patient was started on Rocephin -wound culture taken from left lower extremity ulcers showing Gram-positive cocci and Gram-positive bacilli -may be reactive leukocytosis. White count has been decreasing after starting antibiotics and resolution of A-Fib -blood cultures NGTD RESOLVED # debility -PT OT consulted for weakness and fall -patient's fall may be secondary to his new AFib # lower extremity wounds -consulting Wound Care for local wound care -appears to be chronic wounds b/l LE # chronic conditions -essential hypertension: Continue holding BP meds, Amlodipine, lisinopril until we see how his blood pressure does with addition of metoprolol, resumption of Lasix, and stopping midodrine. -supplements: D3, iron -heart failure: Furosemide, resume today 07/02 -type 2 diabetes: Glipizide -hypothyroidism: Levothyroxine, checking TSH -GERD: Omeprazole -hyperlipidemia: Simvastatin -insomnia: Trazodone -sleep apnea: Continue CPAP settings 14cm H2O Diet: Heart healthy DVT prophylaxis: starting Eliquis for a-fib Code status: Full code, patient's family to bring in advanced directive Disposition: Pending PT OT, will need placement, anticipate discharge in greater than 2 days DS: Summary Hospital Course Reason for hospitalization: fall, atrial fibrillation RVR Hospital Course: Patient is a 74-year-old male with past with history of morbid obesity, sleep apnea, essential hypertension, iron deficiency anemia, type 2 diabetes, con
[2024-07-05 16:59] LABS: SARS-CoV-2 RNA PCR Negative (Negative)
[2024-07-05 17:06] LABS: Glucose Point of Care 125 mg/dl (65-105)
== END 2024-07-05 18:13 | DRG 309 ==
LOC: ANHED 22:45 → ANHIMU 23:09 → ANH2MED 07-04 09:30 → ANHIMU 07-04 09:35 → ANH3MED 07-04 13:50
PROVIDERS: Nurse Practitioner Family; Admitting Provider Student in an Organized Health Care Education/Training Program; Emergency Provider Emergency Medicine; PCP Family Medicine; Visit Provider Nurse Practitioner Acute Care
DX: I48.91 Unspecified atrial fibrillation (principal); L97.929 Non-pressure chronic ulcer of unspecified part of left lower leg with unspecified severity; L03.116 Cellulitis of left lower limb; Z68.43 Body mass index [BMI] 50.0-59.9, adult; W18.30XA Fall on same level, unspecified, initial encounter; G47.33 Obstructive sleep apnea (adult) (pediatric); E66.01 Morbid (severe) obesity due to excess calories; E03.9 Hypothyroidism, unspecified; D72.829 Elevated white blood cell count, unspecified; R53.81 Other malaise; E11.9 Type 2 diabetes mellitus without complications; E78.5 Hyperlipidemia, unspecified; K21.9 Gastro-esophageal reflux disease without esophagitis; I11.0 Hypertensive heart disease with heart failure; I50.9 Heart failure, unspecified; D50.9 Iron deficiency anemia, unspecified
CPT/HCPCS: 36415; 36600; 70450; 70486; 71045; 72125; 73070; 73090; 73521; 80048; 80053; 80061; 81001; 82805; 82948; 83036; 83605; 83735; 83880; 84145; 84443; 84484; 85025; 85027; 85610; 85652; 85730; 86140; 87040; 87070; 87075; 87205; 87635; 87637; 93005; 94002; 96365; 96366; 96375; 97110; 97162; 97166; 97530; 99285; A9270; C8929; G0378; J0696; J1160; J7040; Q9957

== ENCOUNTER 2025-07-22 00:46 | Inpatient (IN) | payer MEDICARE, MEDICAID, SELFPAY ==
--- OUTSIDE RECORDS SUMMARY | 2010-03-10 05:00 | XMS_ITS | Continuity of Care Document ---
Author Organization [facility] Address [address] [place] [address] Phone Care Team Providers Care Manager Architectural Name Role Phone Avalos OD, Harman Unavailable [...] Diagnoses Date Provider Providers Copied on Encounter [facility], [address], [place], [place], [address], [place] tel:[phone] [facility] No Information 0 Avalos OD Harman. [address] , [address], [place], [address], [place]. tel:[phone] Referring Provider: Nain Salter MD B, [address], [place], [address]. tel:[phone] [facility], [address], [place], [place], [address], [place] tel:[phone] [facility] No Information Apr-1 6-200 9 Avalos OD Harman. [address] , [address], [place], [address], [place]. tel:[phone] [facility], [address], [place], [place], [address], [place] tel:[phone] [facility] No Information Apr-1 6-200 9 [facility] . [address], [address], [place], [place], [address], [place]. tel:[phone] Referring Provider: Harman Avalos OD A, [address], [place], [address]. tel:[phone] sulting Provider: Shilpa Rojas, [address] [place], [address]. tel:[phone] [facility], [address], [place], [place], [address], [place] tel:[phone] [facility] No Information Apr-1 0-200 8 Avalos OD Harman. [address], [place], [address], [place]. tel:[phone] Referring Provider: Nain Salter MD B, [address], [place], [address]. tel:[phone] Office/outpat ient Visit, Est [facility], [address] [place] [address] [address], [place], [place], [address], [place] tel:[phone] [facility] No Information Oct-0 4-200 7 Avalos OD Harman. [address], [place], [address], [place]. tel:[phone] [facility], [address], [place], [place], [address], [place] tel:[phone] [facility] No Information Apr-0 5-200 7 Avalos OD Harman. [address] , [address], [place], [address], [place]. tel:[phone] Family History Family Member Type Diagnosis Age At Onset No Information Payers Payer name Insurance type Covered democrat ID Authoriza tion(s) Medicare [facility] [id number] [facility] [id number] Social History Type Description Quantity Date Captured [...]
[2025-07-22] VITALS (23 sets, daily range): BP systolic 82–133; BP diastolic 44–81; PULSE 80–119; RESP 17–27; TEMP 36.8–36.9; O2SAT 93–98; BMI 49.8
--- NOTE | 2025-07-22 | ECHO_ITS ---
Patient Info Name: Miles Pinto Age: 75 years : 1950 Gender: Male Ht: 66 in Wt: 308 lbs BSA: 2.63 m2 HR: 90 bpm BP: 102 / 76 mmHg Heart Rhythm: Atrial Fibrillation Technical Quality: Poor Exam Date: 07/22/2025 12:47 PM Patient Status: I Admit Date: 07/22/2025 Exam Type: CA echo dop color flow w con Complete two-dimensional, color flow and Doppler transthoracic echocardiogram is performed with contrast to opacify the left ventricle and to improve the deliniation of the left ventricle endocardial borders. Staff Referring Physician: Sathya Mcdowell MD Senior Business Analyst: Ivet Moyer Attending Provider: Jayro Guerra Contrast/Agitated Saline Contrast/Ag. Saline: Definity Amount: 2.00 ml Administered By: Ivet Moyer Existing IV Access: Yes IV Access Condition: patent with no signs of infiltration Reason for Poor Study: patient body habitus Summary 1. Technically suboptimal study due to poor sonographic images. 2. Definity contrast administered did not improve wall motion interpretation. 3. Left ventricular chamber dimension is normal. 4. Left ventricular systolic function is normal, estimated at 55-60. 5. There is moderate concentric increased left ventricular wall thickness. 6. The left ventricular diastolic function is normal. 7. E/e' 7 is not elevated. 8. Atrial fibrillation. 9. Left atrial chamber dimension is moderately enlarged. 10. The mitral valve has a moderately calcified annulus. 11. Dilated inferior vena cava with >50% collapse upon inspiration consistent with elevated right atrial pressure, 10 mmHg. Left Ventricle E/e' 7 is not elevated. Left ventricular chamber dimension is normal. Left ventricular systolic function is normal, estimated at 55-60. There is moderate concentric increased left ventricular wall thickness. The left ventricular diastolic function is normal. Atrial fibrillation. Technically suboptimal study due to poor sonographic images. Definity contrast administered did not improve wall motion interpretation. Right Ventricle Right ventricular chamber dimension is not well visualized. Left Atria Left atrial chamber dimension is moderately enlarged. Right Atria Right atrial chamber dimension is not well visualized. Aortic Valve The aortic valve is not well visualized. Cannot determine number of aortic valve leaflets. There is no aortic valve stenosis. There is no aortic valve regurgitation. Pulmonic Valve There is no pulmonic regurgitation. Mitral Valve The mitral valve has a moderately calcified annulus. There is no mitral valve stenosis. There is no mitral valve regurgitation. Tricuspid Valve The tricuspid valve leaflets are not well visualized. Pericardium/Pleural There is no pericardial effusion. Inferior Vena Cava Dilated inferior vena cava with >50% collapse upon inspiration consistent with elevated right atrial pressure, 10 mmHg. Aorta The aortic root size at the sinus of Valsalva is normal. Left Ventricular Outflow Tract Name Value Normal LVOT 2D LVOT Diameter 2.0 cm LVOT Doppler LVOT Peak Velocity 78 cm/s LVOT Peak Gradient 2 mmHg LVOT Mean Gradient 2 mmHg LVOT VTI 22 cm LVOT Stroke Volume 72 ml LVOT CO 6.5 l/min LVOT CI 2.5 l/min/m2 Pulmonic Valve Name Value Normal RVOT Doppler RVOT Peak Velocity 57 cm/s RVOT Peak Gradient 1 mmHg PV Doppler PV Peak Velocity 93 cm/s PV Peak Gradient 3 mmHg Mitral Valve Name Value Normal MV Diastolic Function MV E Peak Velocity 98 cm/s MV A Peak Velocity 32 cm/s MV E/A 3.1 MV Decel Time (PW) 183 ms MV Annular TDI MV E/e' (Septal) 9.8 MV E/e' (Lateral) 6.3 MV E/e' (Average) 8.1 Tricuspid Valve Name Value Normal Estimated PAP/RSVP RA Pressure 10 mmHg <=5 Aortic Valve Name Value Normal AV Doppler AV Peak Velocity 123 cm/s AV Peak Gradient 6 mmHg AV Area (Cont Eq Shyam) 2.0 cm2 AV DI (Shyam) 0.64 AV Regurgitation 2D LVOT Area 3.2 cm2 Ventricles Name Value Normal LV Dimensions 2D/MM IVS Diastolic Thickness (2D) 1.5 cm 0.6-1.0 LVID Diastole (2D) 4.5 cm 4.2-5.8 LVIW Diastolic Thickness (2D) 1.4 cm 0.6-1.0 LVID Systole (2D) 3.0 cm 2.5-4.0 LVOT Diameter 2.0 cm LV Mass (2D Cubed) 247.16 g 88.00-224.00 LV Mass Index (2D Cubed) 94 g/m2 49-115 Relative Wall Thickness (2D) 0.61 <=0.42 LV Fractional Shortening/Ejection Fraction 2D/MM LV Fractional Shortening (2D) 32 % 25-43 LV EF (2D Teichholz) 61 % Atria Name Value Normal LA Dimensions LA Volume (4C A-L) 70 ml LA Volume (BP A-L) 65 ml Report Signatures
--- NOTE | ~2025-07-22 | XR_ITS ---
XR chest 1V portable 07/22/2025 01:29 Indication: Atrial fibrillation. Infection. Procedure: AP portable chest Comparison: 06/29/2024 Findings: Stable moderate cardiomegaly. No focal air space disease, pulmonary edema, pleural effusion or suspected pneumothorax. There are calcified mediastinal lymph nodes and right lung nodules, consistent with chronic granulomatous disease. Impression: 1: No acute cardiopulmonary disease. Reviewed, dictated and finalized at location O. Impression: 1: No acute cardiopulmonary disease.
--- NOTE | ~2025-07-22 | US_ITS ---
EXAMINATION: US renal BI DATE: 07/22/2025 14:50 CDT INDICATION: FRANCISCO JAVIER TECHNIQUE: Sonographic imaging of the kidneys was performed with a 3.5 MHz transducer. Retroperitoneal duplex sonogram of the renal arteries also obtained. FINDINGS: The study is limited due to the patient's imaging characteristics. Right kidney measures 11.4 x 7.7 x 5.8 cm. No right-sided hydronephrosis. Left kidney measures 9.3 x 7.0 x 7.0 cm. No left-sided hydronephrosis. Visualized bladder is unremarkable. Ureteral jets were not identified. IMPRESSION: 1. No hydronephrosis. 2. Limited study as above. Reviewed, dictated and finalized at location Q.
--- NOTE | ~2025-07-22 | CT_ITS ---
EXAMINATION: CT brain wo con DATE: 07/22/2025 13:35 INDICATION: Confusion TECHNIQUE: Computed tomography (CT) of the head was performed without intravenous contrast. The dose-length product was 681.00 mGy-cm. Automated exposure control and iterative reconstruction technique were employed. COMPARISON: CT dated 06/29/2024 FINDINGS: Generalized brain parenchymal volume loss. There are scattered mild periventricular and subcortical white matter changes, most likely related to small vessel ischemic disease (microangiopathy). No ventriculomegaly or midline shift. Basilar cisterns are patent. Paranasal sinuses and mastoids are pneumatized. No depressed skull fractures. No evidence for acute infarction, hemorrhage or mass. IMPRESSION: 1: No acute intracranial abnormality. Reviewed, dictated and finalized at location O.
--- NOTE | 2025-07-22 01:15 | ECG_ITS ---
Test Date: 2025-07-22 00:51:56 Measurements Intervals Cas[place] Rate: 126 P: 0 MS: 0 QRS: 11 QRSD: 89 T: 17 QT: 291 QTc: 423 Interpretive Statements ATRIAL FIBRILLATION WITH RAPID VENTRICULAR RESPONSE WITH ABERRANT CONDUCTION OR VENTRICULAR PREMATURE COMPLEXES LOW QRS VOLTAGE IN PRECORDIAL LEADS POSSIBLE RIGHT VENTRICULAR CONDUCTION DELAY CONSIDER INFERIOR INFARCT, AGE INDETERMINATE BASELINE ARTIFACT- I, II, AVR, AVL, AVF, V1-V6 ABNORMAL ECG Compared to ECG 06/29/2024 21:02:12 HEART RATE HAS INCREASED Electronically Signed On 07-22-2025 06:16:00 CDT by Nico Nguyen D.O.
--- NOTE | 2025-07-22 01:16 | ED.GENADULT ---
HPI - General Adult General Chief complaint: Unspecified Stated complaint: low O2 sats Time Seen by Provider: 07/22/25 00:46 History of Present Illness HPI narrative: Patient is a 75-year-old male who presents the emergency department this evening from local nursing facility due to concern for low oxygen saturation. Patient does not wear oxygen at home but does wear CPAP at night. Per EMS report, patient was not hypoxic for them and has been satting above 90% on room air. In the emergency department, patient was also noted to be satting 93-94% on room air. Patient himself has no complaints whatsoever. Related Data Home Medications ?Medication ?Instructions ?Recorded ?Confirmed ?Last Taken ?Type fluticasone propionate 50 100 g intranasal DAILY 06/12/21 11/05/24 06/29/24 History mcg/actuation nasal spray,suspension Antacid (calcium carbonate) 500 mg PO BID 06/30/24 11/05/24 06/29/24 History acetaminophen 325 mg tablet 650 mg PO TID PRN Pain 06/30/24 11/05/24 06/29/24 History amlodipine 5 mg tablet 5 mg PO DAILY 06/30/24 11/05/24 06/29/24 History ergocalciferol (vitamin D2) 1,250 1,250 mcg PO WEEKLY 06/30/24 11/05/24 06/29/24 History mcg (50,000 unit) capsule lisinopril 20 mg tablet 40 mg PO DAILY 06/30/24 11/05/24 06/29/24 History loperamide 2 mg tablet (Imodium 2 mg PO Q4-6H PRN Loose Stool 06/30/24 11/05/24 Unknown History A-D) simethicone 40 mg chewable tablet 40 mg PO BID 06/30/24 11/05/24 06/29/24 History simvastatin 40 mg tablet 40 mg PO HS 06/30/24 11/05/24 06/28/24 History Allergies Allergy/AdvReac Type Severity Reaction Status Date / Time levofloxacin Allergy Mild Rash Verified 11/05/24 11:14 Quinolones Allergy Mild Rash Verified 11/05/24 11:14 Review of Systems Review of Systems: All systems are reviewed and are negative unless stated otherwise in the HPI. [facility] Past Medical History Medical History Adult hypothyroidism Morbid (severe) obesity due to excess calories Colon polyp Sleep apnea Shingles Chronic venous insufficiency Ventral hernia Diabetes type 2, controlled GERD (gastroesophageal reflux disease) Hypercholesteremia Hypertension Family History Family History Father Family history of heart disease in male family member before age 55, Onset Age: 64 Patient's father is Family history of cardiovascular disease Other Family history of kidney disease Family history of osteoarthritis Hypertension Social History Social History Smoking status: Never smoker Second hand tobacco smoke exposure: No Alcohol intake: never Substance use: never Substance use type: does not use Do You Feel Safe in your Home?: Yes Lack of Transportation: No Lack of Food: Never True Current Housing: I Have Housing Concerned About Future Housing: No Difficulty Paying Gas/Electric Bills: No Difficulty Paying for Meds: No Currently Unemployed: No Education: High School Diploma/GED Difficulty w/ Childcare or Family Care: No Gender identity (if verbalized by the patient): Male Spiritual care concerns: No Exam Narrative: General: Alert, awake, afebrile, in no acute distress, obese. HEENT: PERRL, no rhinorrhea, no post nasal drip, oropharynx clear. Neck: Trachea midline, no JVD, no lymphadenopathy. Cardiovascular: Tachycardic with an irregular rhythm, no murmurs, rubs or gallops, no peripheral edema. Respiratory: Clear to auscultation bilaterally, no tachypnea, no wheezing, no rhonchi, no rubs, no respiratory distress. Abdomen: Soft, nontender, nondistended, no rebound, no guarding, no peritoneal signs. Musculoskeletal: No joint swelling or deformity, normal muscle tone, chronic lower extremity skin changes secondary to venous stasis. Skin: No rashes or petechia, no signs of infection. Psychiatric: Alert and oriented, normal behavior and judgment for situation. Neurological: Alert and oriented to person, place, and time. Follows all commands. No focal deficits, speech is clear and fluent. Course Vital Signs Vital signs: Vital Signs Temperature 98.3 F 07/22/25 00:42 Pulse Rate 115 H 07/22/25 00:42 Respiratory Rate 22 H 07/22/25 00:42 Blood Pressure 133/81 07/22/25 00:42 Pulse Oximetry 94 07/22/25 00:42 Oxygen Delivery Room Air 07/22/25 00:42 Temperature 98.5 F 07/22/25 03:14 Pulse Rate 119 H 07/22/25 03:14 Respiratory Rate 18 07/22/25 03:14 Blood Pressure 94/56 L 07/22/25 03:14 Pulse Oximetry 93 07/22/25 03:14 Oxygen Delivery Room Air 07/22/25 00:42 Oxygen Flow Rate 2 07/22/25 00:53 Medical Decision Making MDM Narrative Medical decision making narrative: The patient was evaluated by myself in the emergency department. History is obtained from patient who is an independent historian and physical exam was performed. External medical records were reviewed at this time. IV was established and pertinent tests were ordered. Patient was administered 1 L IV fluid bolus with normal saline as patient did trigger sepsis based on his vital signs. 1 g of IV Rocephin was administered at this time pending source identification. Blood cultures were obtained prior to antibiotic administration. EKG was obtained which revealed atrial fibrillation with RVR rate of 126 beats per minute, otherwise no acute process, no evidence of acute ischemia. EKG was independently interpreted by me and is currently pending official cardiology read. Laboratory results obtained revealing a leukocytosis of 13.3, creatinine of 1.71 which is almost double his baseline, proBNP of 2440 which is around patient's baseline, otherwise unremarkable. Troponin negative. Urinalysis unremarkable. Viral swabs negative for COVID /influenza /RSV. Imaging studies obtained included CXR which was independently interpreted by me revealing cardiomegaly otherwise no acute process, which is pending final radiology interpretation. Differential diagnosis considerations include sepsis secondary to infectious process such as pneumonia / UTI, dehydration, acute kidney injury, electrolyte derangements. Comorbidities impacting this visit include none. I have evaluated and discussed social determinants of health with the patient that could potentially impact subsequent diagnosis and treatment plans. On repeat assessment of the patient, reevaluation revealed that the patient is doing well and is in no acute distress. Patient symptoms have improved since he arrived to our emergency department. Repeat vital signs were all reviewed and noted to be stable. Patient's repeat blood pressure and heart rate noted to improved after 1 L IV fluid bolus, current blood pressure noted to be 109/67 mmHg with a map of 78 with current heart rate of 105 beats per minute. Patient was continued on maintenance fluids at a rate of 100 cc/hour due to his acute kidney injury. Differential diagnosis and treatment plan were discussed with the patient who is agreeable with admission. All questions were answered to the patient's satisfaction. Case discussed with the on-call and [facility] hospitalist service Antonio at 0320 and he accepted admission. Vital Signs Vital Signs: Vital Signs Temperature 98.3 F 07/22/25 00:42 Pulse Rate 115 H 07/22/25 00:42 Respiratory Rate 22 H 07/22/25 00:42 Blood Pressure 133/81 07/22/25 00:42 Pulse Oximetry 94 07/22/25 00:42 Oxygen Delivery Room Air 07/22/25 00:42 Temperature 98.5 F 07/22/25 03:14 Pulse Rate 119 H 07/22/25 03:14 Respiratory Rate 18 07/22/25 03:14 Blood Pressure 94/56 L 07/22/25 03:14 Pulse Oximetry 93 07/22/25 03:14 Oxygen Delivery Room Air 07/22/25 00:42 Oxygen Flow Rate 2 07/22/25 00:53 Lab Data 07/22/25 01:42 07/22/25 01:42 Labs: Lab Results 07/22/25 07/22/25 Range/Units 01:42 02:52 WBC 13.3 H (4.5-10.0) K/mm3 RBC 3.82 L (4.6-6.20) M/mm3 Hgb 11.6 L (14.0-18.0) g/dL Hct 39.1 L (42.0-52.0) % MCV 102.4 H (80-100) fl MCH 30.4 (26-34) pg MCHC 29.7 L (32-36) g/dl RDW 15.9 H (11.5-14.5) % Plt Count 239 (150-375) k/mm3 MPV 9.4 (7.4-10.4) fl Immature Gran % (Auto) 0.5 (0-0.5) % Neut % (Auto) 89.9 H (45.5-73.1) % Lymph % (Auto) 4.1 L (18.3-44.2) % [place] % (Auto) 4.8 (2.6-8.5) % Eos % (Auto) 0.5 (0-4.4) % Baso % (Auto) 0.2 (0.2-1.2) % Lymph # (Auto) 0.55 L (0.9-3.2) K/mm3 [place] # (Auto) 0.6 (0.1-0.6) K/mm3 Eos # (Auto) 0.1 (0-0.3) K/mm3 Baso # (Auto) 0.0 (0.0-0.1) K/mm3 Abs Immat Gran (auto) 0.07 H (0.00-0.031) K/mm3 Absolute Neuts (auto) 11.9 H (1.3-6.7) K/mm3 Absolute Nucleated RBC 0.000 (0.0-0.012) K/mm3 Nucleated RBC % 0.0 (0.0-0.2) % PT 16.5 H (11.1-14.7) Seconds INR 1.4 APTT 44.1 H (22.3-36.8) Seconds Sodium 141 (137-145) mmol/L Potassium 4.5 (3.4-5.0) mmol/L Chloride 112 H (98-107) mmol/L Carbon Dioxide 19 L (22-30) mmol/L Anion Gap 10 (4-12) mmol/L BUN 52 H D (9-20) mg/dL Creatinine 1.71 H (0.7-1.3) mg/dL Estim Creat Clear Calc Not Reportable Estimated GFR 39 L (59 - ) Glucose 133 H (65-110) mg/dL Lactic Acid 0.8 (0.7-2.0) mmol/L Calcium 8.5 (8.4-10.2) mg/dL Magnesium 2.4 H (1.6-2.3) mg/dL Total Bilirubin 0.5 (0.2-1.3) mg/dL AST 18 (17-59) U/L ALT 10 (6-50) U/L Alkaline Phosphatase 85 (38-126) U/L Troponin I < 0.012 (0.000-0.034) ng/mL NT-Pro-B Natriuret Pep 2440 H (19.9-100) pg/mL Total Protein 7.2 (6.3-8.2) g/dL Albumin 3.8 (3.5-5.1) g/dL Urine Color Yellow (Yellow) Urine Appearance Clear (Clear) Urine pH 5.0 (5.0-9.0) Ur Specific Roh[place] 1.025 (1.001-1.035) Urine Protein 2+ H (Negative) mg/dL Urine Glucose (UA) Trace H (Negative) mg/dL Urine Ketones Negative (Negative) mg/dL Ur Blood (Man) Negative (Negative) Urine Nitrate Negative (Negative) Urine Bilirubin Negative (Negative) Urine Urobilinogen 1.0 (<2.0) mg/dL Add Ur Microanalysis Reviewed Leukocyte Esterase Rfl Negative (Negative) TANYA/UL Urine RBC 0-2 (0-2) /hpf Urine WBC 0-5 (0-3) /hpf Ur Squamous Epith Cells Occasional (Few) /hpf Urine Bacteria None seen /hpf Urine Casts 11-20 Influenza A (RT-PCR) Negative (Negative) Influenza B (RT-PCR) Negative (Negative) RSV (RT-PCR) Negative (Negative) SARS-CoV-2 RNA (RT-PCR) Negative (Negative) Discharge Plan Discharge Clinical Impression: FRANCISCO JAVIER (acute kidney injury), Atrial fibrillation with RVR Patient Disposition: Still a Patient Condition: Improved
--- OUTSIDE RECORDS SUMMARY | 2025-07-22 01:24 | XMS_ITS | Encounter Summary ---
Author Organization [facility] Address [address] [place] [address] Care Team Providers Care Process Chemist Name Role Phone Nain Salter MD Primary Care Provider [phone] Nain Salter MD Primary Care Provider [phone] Nain Salter MD Primary Care Provider [phone] Weston Simental DO Primary Care Provider [phone] Fredy Cruz MD Unavailable [phone] Dominik Ulrich MD Unavailable [phone] Leobardo Myles MD Primary Care Provider [phone] Encounter Details Date Type Department Care Team (Late st Contact Info) Description 12/25/2016 Orders Only [facility] Provider, MD Jorge [address] [place] [id number] Social History Tobacco Use Types Packs/Day Years Used Date Smoking Tobacco: Never Alcohol Use Standard Drinks/Week Comments No 0 (1 standard drink = 0.6 oz pur e alcohol) Sex and Gender Information Value Date Recorded Sex Assigned at Not on file 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 10/20/2020 10/22/2020 02/17/2021 3:05 AM C DT documented as of this encounter Care Teams Process Chemist Relationship Specialty Start Date End Date Nain Salter MD PCP - General 02/22/17 04/06/19 Nain Salter MD PCP - General 12/27/16 02/21/17 Nain Salter MD PCP - General 12/25/16 12/26/16 Weston Simental DO PCP - General 04/07/19 01/09/22 Leobardo Myles MD PCP - General Family Medicine 01/10/22 Fredy Cruz MD Surgeon Orthopedic Surgery 04/14/19 Dominik Ulrich MD Surgeon General Surgery 10/23/19 documented as of this encounter
--- OUTSIDE RECORDS SUMMARY | 2025-07-22 01:24 | XMS_ITS | Clinical Summary ---
Author Organization [facility] [place] [facility] [place] Address [address] [place] [address] Care Team Providers Care Lease Operator Name Role Phone Fredy Cruz MD Unavailable Dominik Ulrich MD Unavailable + [phone] Leobardo Myles MD Primary Care Provider [phone] Allergies Active Allergy Reactions Criticality Noted Date Comments Levofloxacin Rash Medium 03/16/2021 Chest rash after 2-3 days on levofloxacin several years ago, resolved with discontinuing antibiotics, no shortness of breath, not occurred again since. Rash to chest Medications fluticasone (FLONASE ALLERGY RELIEF) 50 mcg/actuation nasal spray inhale 2 spray by intranasal route every day in each nostril 0 spray 0 7 Active levothyroxine sodium (TIROSINT) 100 mcg capsule take 1 by Oral route once 0 0 7 Active Additional Information Patient taking differently:100 mcgoral Daily (early AM), Reported on 01/10/2022 omeprazole (PriLOSEC) 40 mg capsule take 1 capsule by oral route every day before a meal 0 0 7 Active glipiZIDE XL (GLUCOTROL XL) 2.5 mg 24 hr tablet take 1 Tablet by oral route every day with breakfast 0 0 7 Active Additional Information Patient taking differently:2.5 mg,Indications: takes only if blood sugar is above 120 (in the morning), Reported on 01/10/2022 cholecalciferol (VITAMIN D3) 2,000 unit tablet Take 1 tablet (2,000 Units total) by mouth daily 0 9 Active polyethylene glycol (MIRALAX) 17 gram packetIndicatio ns:constipation Take 1 packet (17 g total) by mouth daily 9 Active senna-docusate (PERICOLACE) 8.6-50 mg Take 2 tablets by mouth nightly 9 Active amLODIPine (NORVASC) 10 mg tablet TK 1 T PO QD 0 9 Active ONETOUCH ULTRA BLUE TEST STRIP strip USE TO TEST BS BID 4 9 Active ferrous sulfate 325 mg (65 mg of elemental iron) tablet TK 1 T PO QD 1 9 Active furosemide (LASIX) 40 mg tablet TK 1 T PO QD 0 9 Active lisinopril (PRINIVIL,ZESTR IL) 20 mg tablet TK 1 T PO QD 1 9 Active ONETOUCH ULTRASOFT lancets USE TO CHECK BLOOD SUGAR QD 1 9 Active simvastatin (ZOCOR) 40 mg tablet Take 40 mg by mouth nightly Active traZODone (DESYREL) 50 mg tablet Take 1 tablet (50 mg total) by mouth nightly 5 tablet 0 Active acetaminophen ER (TYLENOL) 650 mg 8 hr tablet Take 650 mg by mouth every 4 (four) hours Active HYDROcodone-john taminophen (NORCO) 5-325 mg per tabletIndicatio ns:Pain Take 1 tablet by mouth every 4 (four) hours as needed for pain 40 tablet 1 Active Active Problems Problem Noted Date Diagnosed Date Lymphedema of both lower extremities 07/12/2022 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 Most likely, given the significant oozing and edema of the leg and hx of past cellulitis, to be an ulcer of lymphedema or venous stasis +/- some component of vascular impairment preventing healing. It is unclear to me if at this time there is a component of infection to the patient's ulcer, the wound culture results are likely of little usage given bacteria including pseudomonas colonize open oozing wounds easily. Some marginal erythema and warmth suggests a possibility that there is a component of cellulitis, while the L knee lesion and warmth is much more consistent with an early cellulitis. Recommendations -Start patient on amoxicillin/clavulanate 875/125mg BID PO. Will cover MSSA, streptococci, anaerobes, the proteus that was identified and enterococcus, only organism from the culture not covered is pseudomonas. Only common wound superinfecting agent not covered is MRSA however unclear need for coverage for that organism at this time. -Current plan to have patient on this for 2 weeks, have him/nursing facility report back on any improvement of wound, if improvement such as wound drainage decreasing, or erythema decreasing, will consider continuing. -If wound not improving, consider either adding cipro, or doxycycline. Alternatively may stop antibiotics given unclear component of infection. -Most important to healing this wound likely to be reduction in edema. Recommend elevation of leg as much as can be tolerated, at least 1 hour elevated above waist 3 times a day would be preferable. -Compression stockings would normally be useful in chronic lymphedema, however given large wound and PVD may be more harmful than good. -If edema is refractory to elevation, could consider switching amlodipine antihypertensive to an agent that is not as predisposing to edema. -F/u in 4 weeks, will re-evaluate wound, consider if continued antimicrobial therapy is warranted. At that time would also repeat labs. PVD (peripheral vascular disease) 01/10/2022 Assessment & Plan (01/31/2022 1:01 PM COTTAGE ATTENDANT): Assessment/plan: No evidence of flow-limiting stenosis and left lower extremity. This is likely multifactorial due to chronic edema and diabetes. Stressed the importance of continue local wound care and compressive therapy. Can follow-up p.r.n.. Assessment & Plan (01/10/2022 10:40 AM COTTAGE ATTENDANT): Assessment/plan: Limited arterial duplex the left lower extremity reviewed with concern for superficial femoral artery stenosis. I suspect his wound is multifactorial likely a combination of DM, chronic venous stasis as well as possibly peripheral vascular disease. I have ordered a left lower extremity arterial duplex, recommended strict compression and wound care, he will follow-up in 1-2 weeks. s/p left total hip replacement in 05/04/2021 Hx of total hip arthroplasty, right 05/04/2021 Other complete intestinal obstruction 10/20/2019 Gastric bypass status for obesity 10/20/2019 JERMAN on CPAP 10/20/2019 Assessment & Plan (04/11/2021 10:23 AM CDT): Patient continue to wear CPAP of 14 cm water pressure while sleeping. His DME is [facility]. If the patient would need a new CPAP I did inform him the possibility that Medicare require a nocturnal polysomnogram split night protocol if necessary, no MSLT. Cellulitis of lower leg 09/24/2019 Assessment & Plan (01/31/2022 1:01 PM COTTAGE ATTENDANT): Assessment/plan: Wound without any surrounding erythema or purulence drainage. This is likely multifactorial due to lower extremity edema and diabetes. Continue local wound care with compression. Traumatic hematoma of right thigh 04/21/2019 Cellulitis of right leg 04/21/2019 Preoperative state 12/25/2016 Overview (03/01/2017): Preoperative cardiovascular examination Controlled type 2 diabetes mellitus without comp lication 12/25/2016 Overview (03/01/2017): Type 2 diabetes mellitus without complication, without long-term current use of insulin Assessment & Plan (01/10/2022 10:41 AM COTTAGE ATTENDANT): Assessment/plan: Strict glucose control Hypercholesterolemia 12/25/2016 Overview (03/01/2017): Hypercholesteremia Assessment & Plan (01/10/2022 10:40 AM COTTAGE ATTENDANT): Assessment/plan: Statin Body mass index 40+ - severely obese 12/25/2016 Overview (03/01/2017): Morbid obesity with BMI of 50.0-59.9, adult Dyspnea on exertion 12/25/2016 Overview (03/01/2017): HERMAN (dyspnea on exertion) Essential hypertension 12/25/2016 Overview (03/01/2017): Essential hypertension Assessment & Plan (01/31/2022 1:01 PM COTTAGE ATTENDANT): Amlodipine Arthralgia of hip 04/01/2013 Fall Acute blood loss anemia Traumatic hematoma of right knee Cellulitis of lower extremity Assessment & Plan (12/18/2022 12:55 PM COTTAGE ATTENDANT): - Pt's wounds appear much improved from prior visits. Advised he should continue close follow-up with bindery machine setter at rehab for ongoing management. - No s/s of super infection of his LE at this time, no indication for additional abx. - Discussed with patient the rational for treatment, culture results, risk of recurrent infection, signs/symptoms of recurrent infection, and to contact ID clinic with any questions or concerns. Assessment & Plan (10/15/2022 2:38 PM COTTAGE ATTENDANT): - Due to worsening drainage from wound to LLE, will plan on a two week course of Augmentin 875-125mg PO BID, order provided to facility. - Pt should continue to receive aggressive wound care, will discuss with facility to make sure patient is being followed by a wound care provider. - Dressings were removed for exam and replaced after cleansing prior to patient departure. - Labs today for monitoring: CBC, CMP, ESR, CRP, HgbA1c - Will see patient back in 4 weeks for evaluation. - Discussed with patient the rational for treatment, culture results, risk of recurrent infection, signs/symptoms of recurrent infection, and to contact ID clinic with any questions or concerns. - Augmentin can be associated with GI intolerance, diarrhea, rash, leukopenia, thrombocytopenia, interstitial nephritis, LFT elevation, cholestatic hepatitis. Assessment & Plan (07/12/2022 11:51 AM CDT): This is a 72 year old man, hx of DM, PVD, chronic LE edema, who has a persistent largely painless circumferential shallow skin ulcer of the L calf/herrera with some exposure of fat at the back of the calf for the last 1-2 years. Given response to antibiotics therapy appears to be a superinfected ulcer of lymphedema or venous stasis +/- some component of vascular impairment preventing healing. Pt responded well to empiric amox/clav, continues to improve after antibiotics stopped, currently without signs of infection though remains at high risk for reinfection given chronic wound. Recommendations -Patient does not need further antibiotics at this time as wound does not appear to have continuing infection. -Continue to monitor with aggressive lymphedema care. -Because of persistent open/macerated wound, pt will remain susceptible to future soft tissue infections. If occurs again would try repeat empiric therapy, possibly with more narrow spectrum (anti-streptococcal only) therapy, if that is effective and infections are recurrent another possible step is chronic streptococcal suppresion therapy to prevent recurrent cellulitic flares which may slow healing process. However at this current time I do not think this patient warrants that yet, would only consider if more than 2-3 recurrences. -No current need for labs given impressive clinical improvement. -Routine followup in ID clinic in 3 months. Acute pain of right knee Closed fracture of right olecranon process Incarcerated hernia Acute kidney injury Bacteremia COVID-19 Resolved Problems Problem Noted Date Diagnosed Date Resolved Date Incarcerated ventral hernia 10/20/2019 11/23/2019 Immunizations Immunization Administration Dates Next Due Influenza, Quadrivalent, Hig h Dose, Preservative Free, Intrr 07/12/2020 Influenza, Trivalent, High D ose, Split, Preservative Free, Intramuscular 08/31/2019,08/06/2018,08/05/2018,08/04,09/04/2017,08/24/2016,08/21/2015 Influenza, Trivalent, IM (MDV) 09/03/2014,2012 Influenza, Unspecified 08/25/2020,08/10/2016 Pneumococcal Conjugate PCV 13 08/27/2016 Pneumococcal Polysaccharide PPV23 09/04/2017 Pneumococcal, Unspecified 07/10/2016 Tdap 04/07/2019,09/16/2017 ZOSTER LIVE 09/03/2014 Surgical History Surgery Date Site/Laterality Comments HIP ARTHROPLASTY Hip replacement ABDOMINAL SURGERY ORIF RADIAL SHAFT FRACTURE Right JOINT REPLACEMENT Medical History Medical History Date Comments Hx Other Medical morbid obesity; Comments: ELU 12/25/2016 - Hx Other Medical JERMAN on CPAP; Co mments: ELU 12/25/2016 - Hx Other Medical 2008 lap band; Comme nts: LAURENU 12/25/2016 - Gastroesophageal reflux disease GERD Disorder of thyroid Thyroid dise ase Hypertension Diabetes mellitus (HCC) Sleep apnea Anemia Hypercholesteremia Osteoarthritis Morbid obesity with body mas s index of 45.0-49.9 in adult (HCC) Family History Medical History Relation Name Comments Other Brother 2 Alive and well; Heart attack Father Myocardial infa rction; Cause of : Myocardial infarction Heart disease Father Heart attack Mother Myocardial infa rction; Cause of : Myocardial infarction Heart disease Mother Other Sister 2 Alive and well; Relation Name Status Comments Brother 1 Alive Brother 2 Father (Age 64) Mother (Age 82) Sister 1 Alive Sister 2 Social History Tobacco Use Types Packs/Day Years Used Date Smoking Tobacco: Never Smokeless Tobacco: Never Alcohol Use Standard Drinks/Week Comments No 0 (1 standard drink = 0.6 oz pur e alcohol) AUDIT-C Answer Date Recorded Q1: How often do you have a drink containing alcohol? Never 06/07/2022 Q2: How many drinks containi ng alcohol do you have on a typical day when you are drinking? Patient does not drink Q3: How often do you have si x or more drinks on one occasion? 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 Not on file Not on file Not on file Obstetrics History Last Filed Vital Signs Vital Sign Reading Time Taken Comments Blood Pressure 98/60 12/13/2022 9:51 AM COTTAGE ATTENDANT Pulse 59 12/13/2022 9:51 AM COTTAGE ATTENDANT Temperature 36.4 C (97.5 F) 12/13/2022 9:51 AM COTTAGE ATTENDANT Respiratory Rate 20 05/09/2021 7:00 PM CDT Oxygen Saturation 92% 05/09/2021 7:00 PM CDT Inhaled Oxygen Concentration - - Weight 133.8 kg (295 lb) 12/13/2022 9:51 AM COTTAGE ATTENDANT Height 165 cm (5' 4.96) 12/13/2022 9:51 AM COTTAGE ATTENDANT Body Mass Index 49.15 12/13/2022 9:51 AM COTTAGE ATTENDANT Plan of Treatment Health Maintenance Due Date Last Done Comments Albumin Creatinine Ratio, Urine 1948 Hepatitis C Screening 1950 Dilated Eye Exam 1948 Foot Exam 1948 Hepatitis B Screening 1966 Well Visit 65+ 2013 Zoster Vaccine (2 of 3) 10/29/2014 09/03/2014 Hemoglobin A1C 09/01/2021 03/02/2021, 09/22/2020 Depression Screening 09/20/2021 09/20/2020, 10/19/2019, 04/07/2019 Lipid Panel 02/20/2022 02/20/2021, 09/22/2020 Fall Risk Assessment 05/09/2022 05/09/2021 eGFR 05/09/2022 05/09/2021, 04/25, 05/07/2021, Additional history exists Influenza Vaccine (#1) 2025 , 07/12/2020, 08/31/2019, Additional history exists DTaP/Tdap/Td Vaccine (3 - Td or Tdap) 04/07/2029 04/07/2019, 09/16/2017 Colon Cancer Screening-FIT Discontinued 07/13, 07/12/2013, 07/11/2013 Colon Cancer Screening-FOBT Discontinued 06/25, 07/12/2013, 07/11/2013 Colorectal Cancer Screening Discontinued Pneumococcal vaccine 65+ Completed 017, 08/27/2016, 07/10/2016 Colon Cancer Screening-CT Colonography Discontinued Colon Cancer Screening-Colonoscopy Discontinued Colon Cancer Screening-DNA Stool Discontinued Colon Cancer Screening-Sigmoidoscopy Discontinued Medical Devices Implanted Type Area Machine Tool Designer Device Identifier Shelf Expiration Date Model / Serial / Lot Other - See Comments Other - see comments Right: Arm Other - See Comments Other - see comments N/A: Hip [employer] [id number] 54mm Limit Hole Color Coded Hip F Offset Hemisphere Shell - [id number] - [id number] Implanted:Qty: 1 on 05/04/2021 by Aureliano Adame MD at [facility] Other - see comments Left: Hip [employer] [id number] 01/02/2031 [id number] / [id number] / [id number] Description:Acetabular shell [employer] [id number] Echo Bi-Metric 12mm 140mm Noncollar Reduce Proximal Profile Press - [id number] - [id number] Implanted:Qty: 1 on 05/04/2021 by Aureliano Adame MD at [facility] Other - see comments Left: Hip [employer] [id number] 03/28/2031 [id number] / [id number] / [id number] Description:Femoral Stem [employer] [id number] 32mm Lumen Hip F Liner Acetabular Longevity Sterile Latex Free - [id number] - [id number] Implanted:Qty: 1 on 05/04/2021 by Aureliano Adame MD at [facility] Other - see comments Left: Hip [employer] [id number] 10/24/2024 [id number] / [id number] / [id number] Description:Liner [employer] [id number] 32mm Modular Hip +6mm Head Femoral Biolox Delta - [id number] - [id number] Implanted:Qty: 1 on 05/04/2021 by Aureliano Adame MD at [facility] Other - see comments Left: Hip [employer] [id number] 11/11/2028 [id number] / [id number] / [id number] Description:Head [employer] [id number] Trilogy 6.5mm 30mm Self Tap Acetabular Cortical Screw Bone - [id number] - [id number] Implanted:Qty: 1 on 05/04/2021 by Aureliano Adame MD at [facility] Screw Left: Hip [employer] [id number] 02/08/2031 [id number] / [id number] / [id number] [employer]/C R Bard [id number] Ventralight St Sepra 4.5in Uncoated Monofilament Lightweight - [id number] Implanted:Qty: 1 on 10/20/2019 by Dominik Ulrich MD at [facility] N/A: Abdomen [employer] R Bard 06/21/2021 [id number] / / [id number] Procedures Procedure Name Priority Date/Time Associated Diagnosis Comments EGFR Routine 05/09/2021 6:57 AM CDT HEMOGLOBIN A1C Routine 03/02/2021 9:39 AM CDT LIPID PANEL Routine 09/22/2020 5:09 AM CDT OCCULT BLOOD, FECAL (FIT) Routine 07/13/2013 9:40 AM CDT from Last 3 Months or Most Recently Relevant to Health Maintenance Results * eGFR (05/09/2021 6:57 AM CDT) eGFR 84 mL/min/1.7 3 m2 VICKI Comment: Interpretive Data Reference Interval Normal >/= 90 mL/min/1.73m2 Mildly decreased* 60 - 89 mL/min/1.73m2 Mildly to moderately decreased 45 - 59 mL/min/1.73m2 Moderately to severely decreased 30 - 44 mL/min/1.73m2 Severely decreased 15 - 29 mL/min/1.73m2 Kidney Failure < 15 mL/min/1.73m2 *Relative to young adult level Estimated glomerular filtration rate is determined by the CKD-EPI equation recommended by the National Kidney Foundation (KDIGO 2012 Clinical Practice Guideline for the Evaluation and Management of Chronic Kidney Disease. Kidney Intnl Suppl Nov 2012;3:1). The CKD-EPI equation should not be used for patients with unstable renal function and has not been validated in children and those over 70. Current interpretive data was last reviewed 2020 Blood specimen (specimen) 05/09/2021 6:57 AM CDT 05/09/2021 7:23 AM CDT Aureliano Adame MD LAB BLOOD ORDERABLES F inal Result Performing Organization Address City/[facility] Co de Phone Number [address] Department [place] [address] * Hemoglobin A1c (03/02/2021 9:39 AM CDT) Hemoglobin A1c % 5.5 4.0 - 5.6 % [facility] Comment: ADA 2016 GUIDELINES: Initial Diagnostic Criteria HbA1c Result: Interpretation: <5.7% Normal 5.7-6.4% At risk for diabetes mellitus >=6.5% Consistent with diabetes mellitus Diabetes monitoring Target value (ADA Recommended) <7% 03/02/2021 9:39 AM CDT 03/02/2021 9:44 AM CDT Narrative Resulting Agency Comment CLI us Aureliano Adame MD LAB BLOOD ORDERABLES F inal Result Performing Organization Address [facility] de Phone Number [address] [phone] * Lipid panel (09/22/2020 5:09 AM CDT) Cholesterol 101 30 - 199 mg/dL [facility]ICK[facility] RUSSELL (ELVA) Comment: Interpretive Data Ages < or = 19 years Acceptable: <170 mg/dL Borderline high: 170-199 mg/dL High: >or= 200 mg/dL Ages > or = 20 years Desirable: <200 mg/dL Borderline high: 200-239 mg/dL High: >or= 240 mg/dL Literature References: 1. Expert Panel on Integrated Guidelines for Cardiovascular Health and Risk Reduction in Children and Adolescents. Pediatrics 2011;128:S213 2. NCEP Expert Panel. Circulation 2004;110:227 Current Interpretive Data was last revised on 2018. Triglycerides 130 <=149 mg/dL [facility] RUSSELL ([facility]) Comment: Interpretive Data Ages < or = 9 years Acceptable: <75 mg/dL Borderline high: 75-99 mg/dL High: >or= 100 mg/dL Ages 10 to 20 years Acceptable: <90 mg/dL Borderline high: 90-129 mg/dL High: >or= 130 mg/dL Ages > or = 20 years Desirable: <150 mg/dL Borderline high: 150-199 mg/dL High: 200-499 mg/dL Very high: >or= 499 mg/dL Literature References: 1. Expert Panel on Integrated Guidelines for Cardiovascular Health and Risk Reduction in Children and Adolescents. Pediatrics 2011;128:S213 2. NCEP Expert Panel. Circulation 2004;110:227 Current Interpretive Data was last revised on 2018. HDL 44 >=40 mg/dL VICKI Norton ([facility]) Comment: Interpretive Data Ages < or = 19 years Acceptable: >45 mg/dL Borderline low: 40-45 mg/dL Low: <40 mg/dL Ages > or = 20 years Desirable: >or= 60 mg/dL Low: <40 mg/dL Literature References: 1. Expert Panel on Integrated Guidelines for Cardiovascular Health and Risk Reduction in Children and Adolescents. Pediatrics 2011;128:S213 2. NCEP Expert Panel. Circulation 2004;110:227 Current Interpretive Data was last revised on 2018. LDL, calculated 31 <=129 mg/dL [facility]ICKI RUSSELL ([place]) Comment: Interpretive Data Ages < or = 19 years Acceptable: <110 mg/dL Borderline high: 110-129 mg/dL High: >or= 130 mg/dL Ages > or = 20 years Optimal: <100 mg/dL Near optimal: 100-129 mg/dL Borderline high: 130-159 mg/dL High: >160 mg/dL Literature References: 1. Expert Panel on Integrated Guidelines for Cardiovascular Health and Risk Reduction in Children and Adolescents. Pediatrics 2011;128:S213 2. NCEP Expert Panel. Circulation 2004;110:227 Current Interpretive Data was last revised on 2018. Non-HDL Cholesterol 57 mg/dL [facility]ICKI RUSSELL (ELVA) Comment: Interpretive Data Ages < or = 19 years Acceptable: <120 mg/dL Borderline high: 120-144 mg/dL High: >145 mg/dL Ages > or = 20 years When triglycerides are >200 mg/dL, Non-HDL cholesterol is a secondary target of therapy with treatment goals that are 30 mg/dL greater than the LDL cholesterol target. Literature References: 1. Expert Panel on Integrated Guidelines for Cardiovascular Health and Risk Reduction in Children and Adolescents. Pediatrics 2011;128:S213 2. NCEP Expert Panel. Circulation 2004;110:227 Current Interpretive Data was last revised on 2018. Chol/HDL ratio 2 HAIMJOSE Romo YVONNE ([place]) Blood specimen (specimen) 09/22/2020 5:09 AM CDT 09/22/2020 5:44 AM CDT us Lino Robertson MD LAB BLOOD ORDERABLES Final Resu lt VICKI YVONNE ([place]) 1 [facility] Department [place] [address] * Occult blood, fecal non neoplasm screening (07/13/2013 9:40 AM CDT) Stool Occult Blood POSITIVE NEGATIVE 07/13/2013 12:19 PM CDT [facility] HISTORICAL RESULTS 07/13/2013 9:40 AM CDT 07/13/2013 11:57 AM CDT Narrative [facility] HISTORICAL RESULTS - 07/13/2013 12:19 PM CDT Collected By PLConi 847 us Cindy MAS LAB BODY FLUIDS AND STOOLS OR DERABLES Final Result [facility] HISTORICAL RESULTS from Last 3 Months or Most Recently Relevant to Health Maintenance Insurance [facility] Room [address] MEDICARE ADVANTAGE IDPA Member Subscriber Plan / Payer (Ef fective 2021-Present) Name:Miles Pinto Relation to Subscriber:Self Name:Miles Pinto Payer ID:[id number] Group ID:Not on file Type:[place] Address: [place] [id number] IDPA Member Subscriber Plan / Payer (Ef fective 2019-Present) Name:Miles Pinto Relation to Subscriber:Self Name:Miles Pinto Payer ID:[id number] Group ID:Not on file Type:[place] Address: [place] [id number] UHC MEDICARE ADVANTAGE [facility] Room [address] MDCR HMO REF IDPA [facility] MEDICARE ADVANTAGE Advance Directives For more information, please contact: [phone] Documents on File Type Date Recorded 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 Expl anation ADVANCE DIRECTIVE 07/04/2013 12:00 AM ZO R OF VICE CHANCELLOR FINANCIAL/MEDICAL * Full Code (Latest Code Status on File) Date Activated Date Inactivated Comments 05/04/2021 2:36 PM 05/10/2021 2:01 AM * Full Code Date Activated Date Inactivated Comments 10/20/2019 2:57 AM 10/24/2019 3:03 PM * Full Code Date Activated Date Inactivated Comments 10/20/2019 1:50 AM 10/20/2019 2:57 AM * Full Code Date Activated Date Inactivated Comments 04/20/2019 5:23 AM 04/22/2019 9:25 PM * Full Code Date Activated Date Inactivated Comments 04/07/2019 6:21 PM 04/14/2019 6:01 PM Care Teams Lease Operator Relationship Specialty Start Date End Date Leobardo Myles MD PCP - General Family Medicine 01/10/22 Fredy Cruz MD Surgeon Orthopedic Surgery 04/14/19 Dominik Ulrich MD Surgeon General Surgery 10/23/19
--- OUTSIDE RECORDS SUMMARY | 2025-07-22 01:24 | XMS_ITS | Encounter Summary ---
Author Organization [facility] Address [address] [place] [address] Care Team Providers Care Inspector Machine Cut Glass Name Role Phone Nain Salter MD Primary Care Provider [phone] Nain Salter MD Primary Care Provider [phone] Weston Simental DO Primary Care Provider [phone] Fredy Cruz MD Unavailable [phone] Dominik Ulrich MD Unavailable [phone] Leobardo Myles MD Primary Care Provider [phone] Encounter Details Date Type Department Care Team (Late st Contact Info) Description 12/31/2016 Orders Only [facility] ProviderJorge MD [address] [place] [id number] Social History Tobacco Use Types Packs/Day Years Used Date Smoking Tobacco: Never Alcohol Use Standard Drinks/Week Comments No 0 (1 standard drink = 0.6 oz pur e alcohol) Sex and Gender Information Value Date Recorded Sex Assigned at Not on file Legal Sex Male 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 us Historical Provider [facility] GISELL KUMAR Final Result documented in this encounter Visit Diagnoses Not on filedocumented in this encounter Additional Health Concerns Infection Onset Date Last Indicated Resolved Time MRSA Comment:02/2007 darya legs 02/2021 nasal 06/30/2013 06/29/2013 07/12/2021 5:00 AM C DT COVID19 09/24/2020 09/26/2020 10/20/2020 3:06 AM AUTOMATIC PRESSER COVID: Recovered Comment:Added based on recent COVID infection. 10/20/2020 10/22/2020 02/17/2021 3:05 AM C DT documented as of this encounter Care Teams Inspector Machine Cut Glass Relationship Specialty Start Date End Date Nain Salter MD PCP - General 02/22/17 04/06/19 Nain Salter MD PCP - General 12/27/16 02/21/17 Weston Simental DO PCP - General 04/07/19 01/09/22 Leobardo Myles MD PCP - General Family Medicine 01/10/22 Fredy Cruz MD Surgeon Orthopedic Surgery 04/14/19 Dominik Ulrich MD Surgeon General Surgery 10/23/19 documented as of this encounter
--- OUTSIDE RECORDS SUMMARY | 2025-07-22 01:24 | XMS_ITS | Clinical Summary ---
Author Organization [facility] Address [address] [address] Phone Care Team Providers Care Chiropractic Doctor Name Role Phone Unavailable Primary Care Provider Unavailabl e Social History Tobacco Use Types Packs/Day Years Used Date Smoking Tobacco: Never Assessed Sex and Gender Information Value Date Recorded Sex Assigned at Not on file Legal Sex Male 12:36 PM CDT Gender Identity Not on file Sexual Orientation Not on file Plan of Treatment Health Maintenance Due Date Last Done Comments Hepatitis C Virus (HCV) Screening 1950 Zoster Immunization (2 of 3) 10/29/2014 09/03/2014 Respiratory Syncytial Virus (RSV) Immunization (Adult) (1 - 1-dose 75+ series) 2023 SARS-COV-2 Immunization (3 - season) 2024 11/09/2021, 01/28/2021 Influenza Immunization (#1) 07/26/202511/2019, 07/12/2020, 08/31/2019, Additional history exists Pneumococcal Immunization (50+ years) Completed 09/04/2017, 08/27/2016 DTaP/Tdap/Td Immunization Discontinued 09/16/2017 TdaP Immunization Completed 09/16/2017 Hepatitis B Immunization Aged Out No longer eligible based on patient's age to complete this topic Human Papillomavirus (HPV) Immunization Aged Out No longer eligible based on patient's age to complete this topic Meningococcal Immunization (ACWY) Aged Out No longer eligible based on patient's age to complete this topic Rotavirus Immunization Aged Out No lo nger eligible based on patient's age to complete this topic Insurance MEDICARE C [employer] on file
--- OUTSIDE RECORDS SUMMARY | 2025-07-22 01:24 | XMS_ITS | Encounter Summary ---
Author Organization [facility] Medical Group Address [address] [place] [address] Care Team Providers Care Nursery Manager Name Role Phone Nain Salter MD Primary Care Provider [phone] Nain Salter MD Primary Care Provider [phone] Weston Simental DO Primary Care Provider Fredy Cruz MD Unavailable [phone] Dominik Ulrich MD Unavailable [phone] Leobardo Myles MD Primary Care Provider [phone] Encounter Details Date Type Department Care Team (Late st Contact Info) Description 12/27/2016 Orders Only [facility] ProviderJorge MD [address] [place] [id number] Social History Tobacco Use Types Packs/Day Years Used Date Smoking Tobacco: Never Alcohol Use Standard Drinks/Week Comments No 0 (1 standard drink = 0.6 oz pur e alcohol) Sex and Gender Information Value Date Recorded Sex Assigned at Not on file 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 us Historical Provider [facility] GISELL KUMAR Final Result documented in this encounter Visit Diagnoses Not on filedocumented in this encounter Additional Health Concerns Infection Onset Date Last Indicated Resolved Time MRSA Comment:02/2007 darya legs 02/2021 nasal 06/30/2013 06/29/2013 07/12/2021 5:00 AM C DT COVID19 09/24/2020 09/26/2020 10/20/2020 3:06 AM CHARGE NURSE COVID: Recovered Comment:Added based on recent COVID infection. 10/20/2020 10/22/2020 02/17/2021 3:05 AM C DT documented as of this encounter Care Teams Nursery Manager Relationship Specialty Start Date End Date Nain [...]
--- OUTSIDE RECORDS SUMMARY | 2025-07-22 01:24 | XMS_ITS | Encounter Summary ---
Author Organization [facility] Address [address] [place] [address] Phone Care Team Providers Care Building Code Inspector Name Role Phone Weston Simental Primary Care Provider [phone] Fredy Cruz MD Unavailable [phone] Dominik Ulrich MD Unavailable [phone] Leobardo Myles MD Primary Care Provider Encounter Details Date Type Department Care Team (Late st Contact Info) Description 10/07/2020 Telephone [facility] [address] [place] [address] Neal Harper, RN Social History Tobacco Use Types Packs/Day Years Used Date Smoking Tobacco: Never Smokeless Tobacco: Never Alcohol Use Standard Drinks/Week Comments No 0 (1 standard drink = 0.6 oz pur e alcohol) PHQ-2 Answer Date Recorded PHQ-2 Total Score (If total score is 3 or more points, staff should administer the PHQ-9) 0 10/05/2020 Sex and Gender Information Value Date Recorded Sex Assigned at Not on file Legal Sex Male 9:18 PM 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 10/20/2020 10/22/2020 02/17/2021 3:05 AM C DT documented as of this encounter Care Teams Building Code Inspector Relationship Specialty Start Date End Date Weston Simental DO PCP - General 04/07/19 01/09/22 Leobardo Myles MD PCP - General Family Medicine 01/10/22 Fredy Cruz MD Surgeon Orthopedic Surgery 04/14/19 Dominik Ulrich MD Surgeon General Surgery 10/23/19 documented as of this encounter
[2025-07-22] MEDS: SODIUM CHLORIDE 0.9% IV 1,000 ML 999 ML IV CONT (01:29)
[2025-07-22 01:49] LABS: Hematocrit 39.1 % (42.0-52.0); Hemoglobin 11.6 g/dL (14.0-18.0); Immature Granulocyte Percent A 0.5 % (0-0.5); Lymphocytes Absolute Auto 0.55 K/mm3 (0.9-3.2); Mean Corpuscular HGB Conc 29.7 g/dl (32-36); Mean Corpuscular Hemoglobin 30.4 pg (26-34); Mean Corpuscular Volume 102.4 fl (80-100); Nucleated Red Blood Cells Absolute Auto 0.000 K/mm3 (0.0-0.012); Nucleated Red Blood Cells Perc 0.0 % (0.0-0.2); Platelet Count Result 239 k/mm3 (150-375); Red Blood Count 3.82 M/mm3 (4.6-6.20); White Blood Count 13.3 K/mm3 (4.5-10.0)
[2025-07-22 02:00] LABS: INR 1.4; Prothrombin Time 16.5 Seconds (11.1-14.7)
[2025-07-22 02:02] LABS: Alanine Aminotransferase 10 U/L (6-50); Albumin Level 3.8 g/dL (3.5-5.1); Alkaline Phosphatase 85 U/L (38-126); Anion Gap 10 mmol/L (4-12); Aspartate Amino Transferase 18 U/L (17-59); Bilirubin,Total 0.5 mg/dL (0.2-1.3); Blood Urea Nitrogen 52 mg/dL (9-20); Calcium 8.5 mg/dL (8.4-10.2); Carbon Dioxide 19 mmol/L (22-30); Chloride 112 mmol/L (98-107); Estimated Glomerular Filt Rate 39; Glucose 133 mg/dL (65-110); Magnesium 2.4 mg/dL (1.6-2.3); Partial Thromboplastin Time 44.1 Seconds (22.3-36.8); Potassium 4.5 mmol/L (3.4-5.0); Sodium 141 mmol/L (137-145); Total Protein 7.2 g/dL (6.3-8.2)
--- NOTE | 2025-07-22 02:08 | PC.NURSE ---
Pt states he uses C-PAP at night for sleep apnea.
[2025-07-22 02:12] LABS: NT Pro B Type Natriuretic Pept 2440 pg/mL (19.9-100); Troponin I < 0.012 ng/mL (0.000-0.034)
[2025-07-22 02:25] LABS: Influenza A QL RT-PCR Negative (Negative); Influenza B QL RT-PCR Negative (Negative); RSV RNA, RT-PCR Negative (Negative); SARS-CoV-2 RNA PCR Negative (Negative)
[2025-07-22] MEDS: cefTRIAXone 1 GM in SODIUM CHLORIDE 0.9% IV 50 ML 100 ML IVPB (03:08)
[2025-07-22 03:10] LABS: Add Urine Microscopic? YES; Appearance Urine Clear (Clear); Glucose Urine UA Trace mg/dL (Negative); Leukocyte Esterase Ur Negative LEU/UL (Negative); Need Manual Microscopic Reviewed; Nitrate Urine Negative (Negative); Specific Grav Ur 1.025 (1.001-1.035)
[2025-07-22] MEDS: SODIUM CHLORIDE 0.9% IV 1,000 ML 100 ML IV CONT (03:13)
--- NOTE | 2025-07-22 04:08 | PC.NURSE ---
SHANTELL White from [facility] updated on plan of care.
--- NOTE | 2025-07-22 04:48 | ADMGEN ---
This patient, Miles Pinto, was admitted to IMU Room 210-01. Patient/family oriented to hospital policies and general routines including ID bracelet, bed and alarms, visiting hours, pain management, procedures, bathroom and other care routines, personal items, smoking policy, room service/diet, and visiting hours. Information on how to activate the Rapid Response Team has been discussed. Patient/Family are encouraged to report perceived risks to care and to ask questions if they do not understand what they are told or what they should do.
--- NOTE | 2025-07-22 05:13 | WNDPHOTO ---
PHOTO ONLY - See Nursing Notes and/ or assessments for documentation.
[2025-07-22 05:17] LABS: Troponin I 0.037 ng/mL (0.000-0.034)
--- NOTE | 2025-07-22 07:22 | PM.IMHP ---
H&P: HPI History of Present Illness Date/Time: 07/22/25 07:22 Chief Complaint: Low oxygen saturation Narrative: 75yo male with hx of JERMAN, AFib, DM and HTN who is [place] in [place] to the ED for low oxygen saturation. No EMS reports available. Patient does not wear oxygen normally but does wear CPAP at night. He does not wear oxygen with CPAP. Per ED note, patient was 90% on room air by EMS. Patient is not sure why he is here. He is mostly oriented but then talks about falling 1 week ago in his apartment in [place] despite being at a nursing facility for the past year. He also was saying bizarre comments to nursing. 'I feel fine' but does admit to feeling SOB felt to be positional sitting up in bed finishing his breakfast this morning. He denies headache, fever, chills, vision changes, hearing changes, odynophagia, dysphagia chest pain, lightheadedness, dizziness, cough, n/v/d, constipation, dysuria, hematuria, urinary hesitancy, weakness. He has bhavana eating normally. He has an aide for 20hrs/week that helps him with cleaning, shopping, meal prep and appointment. He walks with a walker in his apartment but otherwise uses a wheelchair. This was confirmed by others. He has occasional leg edema but no calf pain. No pleuritic pain. Last time he saw trimming caser was 1-2 years ago. Hx is suspect overall. In the ED, patient was hypotensive (82/52), tachycardic (119) and tachypneic (24). He was 95% on room air. EKG reviewed personally showing AFib with RVR (126), probable PVCs, possible RV ICD and possible inferior infarct. CXR reviewed personally showing CMG o/w was clear. WBC was 13K with left shift. Mild macrocytosis (hgb 11.6) and normal plt count. PT/INR 16.5/1.4. PTT 44. Pertient findings by CMP showing Chloride 112, bicarb 19(AG10), BUN 52 and Cr 1.7. BNP 2440. Troponin 0.012 -> 0.037. UA showing 2+ protein otherwise normal. Influenza, RSV and COVID PCR negative. BCx collected. He was given 1L of normal saline and one dose of Rocephin. Blood pressure improved to 106/56 and tachycardia resolved. He was started on IV fluids and admitted for further care. Review of Systems Review of Systems: All systems reviewed & are unremarkable except as noted in HPI and below PMFSH Past Medical History Medical History (Updated 07/22/25 @ 08:39 by Sathya Mcdowell MD) Sleep apnea Adult hypothyroidism Morbid (severe) obesity due to excess calories Colon polyp Shingles Chronic venous insufficiency Ventral hernia Diabetes type 2, controlled GERD (gastroesophageal reflux disease) Hypercholesteremia Hypertension Surgical History Surgical History History of knee replacement procedure of left knee History of knee replacement procedure of right knee History of cholecystectomy Family History Family History Father Family history of heart disease in male family member before age 55, Onset Age: 64 Patient's father is Family history of cardiovascular disease Other Family history of kidney disease Family history of osteoarthritis Hypertension Social History Social History (Updated 07/22/25 @ 08:31 by Sathya Mcdowell MD) Social History: Patient resides at [facility]. Lives alone in his apartment. He does not receive meals from the facility. He has an aide 20 hours per week to help with ADLs. No children. He is single. Denies tobacco or drug use. He rarely drinks alcohol. Surrogate decision maker -sister Code status -full Smoking status: Never smoker Second hand tobacco smoke exposure: No Alcohol intake: never Substance use: never Substance use type: does not use Do You Feel Safe in your Home?: Yes Lack of Transportation: No Lack of Food: Never True Current Housing: I Have Housing Concerned About Future Housing: No Difficulty Paying Gas/Electric Bills: No Difficulty Paying for Meds: No Currently Unemployed: No Education: High School Diploma/GED Difficulty w/ Childcare or Family Care: No Gender identity (if verbalized by the patient): Male Spiritual care concerns: No Meds Home Medications and Allergies Home Medications ?Medication ?Instructions ?Recorded ?Confirmed ?Type ferrous sulfate 325 mg (65 mg 325 mg PO DAILY #90 tabs 10/31/20 07/22/25 Rx iron) tablet,delayed release omeprazole 40 mg capsule,delayed 40 mg PO DAILY #90 caps 12/07/20 08/28/25 Rx release glipizide 2.5 mg tablet, extended 2.5 mg PO DAILY #90 tabs 01/02/21 11/05/24 Rx release 24 hr furosemide 40 mg tablet See Rx Instructions .Route 03/01/21 07/22/25 Rx .COMPLEX #30 tabs levothyroxine 100 mcg tablet See Rx Instructions .Route 03/06/21 07/22/25 Rx .COMPLEX #90 tabs fluticasone propionate 50 100 g intranasal DAILY 06/12/21 07/22/25 History mcg/actuation nasal spray,suspension propylene glycol 1 %-glycerin 0.3 1 drp EACH EYE QID PRN dry eye(s) 05/09/23 07/22/25 Rx % eye drops (Artificial Tears #30 mL (glycerin-peg)) Antacid (calcium carbonate) 500 mg PO BID 06/30/24 07/22/25 History acetaminophen 325 mg tablet 650 mg PO TID PRN Pain 06/30/24 07/22/25 History amlodipine 5 mg tablet 5 mg PO DAILY 06/30/24 07/22/25 History ergocalciferol (vitamin D2) 1,250 1,250 mcg PO WEEKLY 06/30/24 11/05/24 History mcg (50,000 unit) capsule lisinopril 20 mg tablet 40 mg PO DAILY 06/30/24 07/22/25 History loperamide 2 mg tablet (Imodium 2 mg PO Q4-6H PRN Loose Stool 06/30/24 07/22/25 History A-D) simethicone 40 mg chewable tablet 40 mg PO BID 06/30/24 11/05/24 History simvastatin 40 mg tablet 40 mg PO HS 06/30/24 07/22/25 History apixaban 5 mg tablet (Eliquis) 5 mg PO Q12HR #180 tabs 07/05/24 07/22/25 Rx doxycycline hyclate 100 mg tablet 100 mg PO Q12HR #3 tabs 07/05/24 11/05/24 Rx metoprolol tartrate 37.5 mg tablet 37.5 mg PO BID #180 tabs 07/05/24 07/22/25 Rx hydrocodone 7.5 mg-acetaminophen 1 tablet PO Q4H PRN pain #120 tabs 05/13/25 07/22/25 Rx 325 mg tablet Allergies Allergy/AdvReac Type Severity Reaction Status Date / Time levofloxacin Allergy Mild Rash Verified 11/05/24 11:14 Quinolones Allergy Mild Rash Verified 11/05/24 11:14 Vital Signs Vital Signs - 24 hr 07/22/25 00:42 07/22/25 00:53 07/22/25 02:03 Temperature 98.3 F Pulse Rate 115 H 119 H Respiratory Rate 22 H 24 H Blood Pressure 133/81 82/52 L Pulse Oximetry 94 98 95 Oxygen Delivery Room Air Oxygen Flow Rate 2 07/22/25 02:21 07/22/25 03:14 07/22/25 04:49 Temperature 98.5 F 98.3 F Pulse Rate 119 H 80 Respiratory Rate 18 18 Blood Pressure 92/54 L 94/56 L 106/56 L Pulse Oximetry 93 98 Oxygen Delivery Oxygen Flow Rate 07/22/25 06:00 Temperature Pulse Rate 93 Respiratory Rate Blood Pressure Pulse Oximetry Oxygen Delivery Oxygen Flow Rate Exam Narrative: AF 98.2 99/52 116 18 98% ra Gen - well appearing male in no acute respiratory distress but is tachypneic with conversation. This improved when patient was made more recumbent. HEENT - normocephalic. Atraumatic. Pupils equal round and poorly reactive. Extraocular motions intact. Sclera clear and anicteric. Nares patent. Oropharynx was poorly visualized. No oral lesions. Moist mucous membranes. Tongue was midline. Palate yadira symmetrically. 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 No obvious adenopathy, thyromegaly or masses. Chest - lungs are clear to auscultation bilaterally posteriorly. Faint expiratory wheeze appreciated anteriorly. Conversational dyspnea noted that improved when patient was made more recumbent CV -tachycardic and irregular. Distant S1/S2. No obvious murmurs. Abd -soft. Obese. Nontender. Bladder did not feel distended. No obvious organomegaly. Ext -chronic venous stasis skin changes noted in the right lower extremity. Palms sized depressed area noted about the right knee. Left lower extremity had a purplish red hue that was blanchable. Trace to 1+ edema bilaterally left worse than right. Distal pulses difficult to palpate. Warmth to the bilateral lower extremities was symmetric. Neuro - patient is alert and oriented x3 (except Luz name) but made auto comments at times. When corrected, he accepted this new information.. Strength is 5/5 in upper extremities. Difficulty with dorsiflexion bilaterally. Hip flexor strength was 4/5. Cranial nerves 2-12 are intact except for mild left facial weakness. Speech is clear. Psych - normal mood and affect. Patient is pleasant and cooperative. Skin -as above otherwise skin warm and dry. Normal cap refill bilateral lower extremity H&P: Results Labs Labs: Short CBC 07/22/25 Range/Units 01:42 WBC 13.3 H (4.5-10.0) K/mm3 Hgb 11.6 L (14.0-18.0) g/dL Hct 39.1 L (42.0-52.0) % Plt Count 239 (150-375) k/mm3 BMP 07/22/25 01:42 Sodium 141 Potassium 4.5 Chloride 112 H Carbon Dioxide 19 L BUN 52 H D Creatinine 1.71 H Glucose 133 H Calcium 8.5 Cardiac Enzymes 07/22/25 07/22/25 Range/Units 01:42 04:42 Troponin I < 0.012 0.037 H* D (0.000-0.034) ng/mL Liver Function 07/22/25 Range/Units 01:42 Total Bilirubin 0.5 (0.2-1.3) mg/dL AST 18 (17-59) U/L ALT 10 (6-50) U/L Alkaline Phosphatase 85 (38-126) U/L Albumin 3.8 (3.5-5.1) g/dL Urine 07/22/25 Range/Units 02:52 Urine Color Yellow (Yellow) Urine Appearance Clear (Clear) Urine pH 5.0 (5.0-9.0) Ur Specific [place] 1.025 (1.001-1.035) Urine Protein 2+ H (Negative) mg/dL Urine Glucose (UA) Trace H (Negative) mg/dL Assessment and Plan Assessment and plan (1) Sepsis: Code(s): A41.9 - Sepsis, unspecified organism Status: Acute Assessment and Plan: Patient originally brought to the emergency room due to possible hypoxia although not noted on presentation. Patient with leukocytosis, tachycardia, tachypnea and hypotension concerning for sepsis. He also has confusion which also could be part of the sepsis picture. Sources unclear if this is related to infection. Consider also dehydration from over-diuresis. Chest x-ray not consistent with pneumonia. UA not consistent with UTI. Consider PE given the tachycardia, hypotension and tachypnea but patient is on Eliquis so doubt this diagnosis at this time Will continue Rocephin. Check procalcitonin and CRP. Stop Rocephin if blood cultures negative x2 days. Consider CT of the chest/abdomen/pelvis if condition does not improve as expected. (2) Hypotension: Code(s): I95.9 - Hypotension, unspecified Status: Acute Assessment and Plan: Patient with hypertension and takes Norvasc, Lasix, lisinopril and metoprolol at home. Patient found to be hypotensive on presentation. Again could be related to sepsis and/or dehydration. Will hold his antihypertensive medications including Lasix. Blood pressure has improved with IV fluids. Will attempt to add back his metoprolol at a lower dose to try to improve his heart rate without worsening his blood pressure. Monitor closely in the IMU (3) Atrial fibrillation with RVR: Code(s): I48.91 - Unspecified atrial fibrillation Status: Acute Assessment and Plan: Patient presents with tachycardia an EKG showing atrial fibrillation with RVR. This may be normal hemodynamic response of tachycardia related to hypotension. Overnight, his blood pressure improved as tachycardia resolved to lend credence to this. Will stop IV fluids after this bag is complete. Add back metoprolol at low dose and advanced back to home dose as blood pressure allows and if heart rate requires. Check echocardiogram. Resume Eliquis if CT of the brain okay. (4) FRANCISCO JAVIER (acute kidney injury): Code(s): N17.9 - Acute kidney failure, unspecified Status: Acute Assessment and Plan: Baseline creatinine is normal at around 1 noted last year. Creatinine 1.7, BUN 52 with an estimated GFR of 39. BUN/Cr >20 also to suggest prerenal. Will check urine electrolytes. Check renal ultrasound. Repeat renal function today. Consider Nephrology consult if creatinine does not improve as expected (5) Confusion: Code(s): R41.0 - Disorientation, unspecified Status: Acute Assessment and Plan: Patient with confusion. Independent sources this is unusual for this patient. Could be related to sepsis. Consider other etiologies such as CO2 retention. He does take Eliquis so stroke would be less likely but will check CT of the brain to exclude occult CVA. Check ABG. Check B12, folate and TSH. Monitor mental status neuro checks. (6) Sleep apnea: Qualifiers: Sleep apnea type: obstructive Qualified Code(s): G47.33 - Obstructive sleep apnea (adult) (pediatric) Code(s): G47.30 - Sleep apnea, unspecified Status: Acute Assessment and Plan: Patient has JERMAN. He is compliant with CPAP. Will check ABG to see if his settings are still appropriate. Continue CPAP (7) Type 2 diabetes mellitus without complication, with no history of insulin use: Code(s): E11.9 - Type 2 diabetes mellitus without complications Status: Acute Assessment and Plan: Patient with diabetes. A1c 6.6 last year. Currently only on glipizide. Hold glipizide. Check A1c Start AccuCheks covering with sliding scale. Hypoglycemia protocol available as needed. Plan DVT Prophylaxis - SCDs Code status - full Disp - start PT/OT
[2025-07-22 07:55] LABS: Troponin I 0.071 ng/mL (0.000-0.034)
--- NOTE | 2025-07-22 09:13 | ECG_ITS ---
Test Date: 2025-07-22 10:36:52 Measurements Intervals [place] Rate: 89 P: 0 WV: 0 QRS: 7 QRSD: 88 T: 7 QT: 332 QTc: 406 Interpretive Statements ATRIAL FIBRILLATION POSSIBLE RIGHT VENTRICULAR CONDUCTION DELAY LOW QRS VOLTAGE IN PRECORDIAL LEADS CONSIDER INFERIOR INFARCT, AGE INDETERMINATE BASELINE ARTIFACT- I, II, AVR, V1 ABNORMAL ECG Compared to ECG 07/22/2025 00:51:56 HEART RATE HAS DECREASED Electronically Signed On 07-22-2025 10:51:53 CDT by Nico Nguyen D.O.
[2025-07-22 09:34] LABS: Hemoglobin A1C 7.0 % (<5.7)
[2025-07-22] MEDS: METOPROLOL TARTRATE 12.5 MG TABLET PO ×2 (09:48→21:15)
[2025-07-22 09:49] LABS: Creatine Kinase 82 U/L (55-170)
[2025-07-22 09:49] LABS: Alveolar/Arterial O2 Gradient 45.9 mmHg; Fractional Inspired Oxygen 24 %; HCO3 ABG 17.4 mEq/l (22.0-26.0); Oxygen Content ABG 15.0 %vol (16.0-22.0); Oxygen Saturation ABG 95.5 % (95.0-100.0); PCO2 ABG 35.1 mmHg (35.0-45.0); PO2 ABG 83.5 mmHg (80.0-100.0); PO2 FiO2 Ratio Arterial Blood 3.48 %
[2025-07-22] MEDS: PANTOPRAZOLE 40 MG TABLET PO ×2 (09:49→21:15)
[2025-07-22] MEDS: LEVOTHYROXINE SODIUM 100 MCG TABLET PO (09:49)
[2025-07-22 09:50] LABS: Liters per Minute 1.0 LPM; Modified Allen's Test Pass; Site Drawn RIGHT RADIAL
[2025-07-22 09:52] LABS: Albumin Level 3.1 g/dL (3.5-5.1); Anion Gap 5 mmol/L (4-12); Blood Urea Nitrogen 43 mg/dL (9-20); Calcium 8.3 mg/dL (8.4-10.2); Carbon Dioxide 19 mmol/L (22-30); Chloride 116 mmol/L (98-107); Creatine Kinase 70 U/L (55-170); Estimated CRCL calculation 52 ml/min; Estimated Glomerular Filt Rate 48; Glucose 222 mg/dL (65-110); Potassium 4.4 mmol/L (3.4-5.0); Sodium 140 mmol/L (137-145)
[2025-07-22] MEDS: FERROUS SULFATE 325 MG TABLET DR PO (09:54)
[2025-07-22 10:07] LABS: Procalcitonin 0.6 ng/mL
[2025-07-22 10:19] LABS: CRP 14.1 mg/dL (<1.0)
[2025-07-22 10:20] LABS: Thyroid Stimulating Hormone Reflex 1.170 uIU/mL (0.465-4.68)
[2025-07-22 10:55] LABS: Vitamin B12 206.0 pg/mL (239-931)
[2025-07-22 11:16] LABS: Total Protein Urine Random 49 mg/dL; Ur Ttl Prot Creatinine Ratio 0.85 mg/mg (0-0.20)
[2025-07-22 11:20] LABS: Urine Eos QC 2nd Tech Confirmed
[2025-07-22 12:46] LABS: Troponin I 0.075 ng/mL (0.000-0.034)
[2025-07-22] MEDS: PERFLUTREN LIPID MICROSPHERES 1.5 ML VIAL DILUTED TO 10 ML TOTAL VOLUME IV PUSH (13:17)
--- NOTE | 2025-07-22 13:17 | IVDEFINITY ---
Prior to administration of IV Definity the patient was educated on the risks and benefits of the imaging enhancing agent including potential adverse side effects. The patient verbalized understanding. Allergies were verified. No exclusion criteria were identified and at least one of the following inclusion criteria were met: 1) physician request, 2) patient technically difficult to image (per the [place] [employer]chocardi[employer] guidelines of two or more segments not discernable within the apical view), or 3) questionable left ventricular function. ?
[2025-07-22] MEDS: SIMVASTATIN 20 MG TABLET 40 MG PO (21:16)
[2025-07-22] MEDS: CYANOCOBALAMIN INJ 1,000 MCG/ML VIAL 1000 MCG IM (21:20)
[2025-07-23] VITALS (20 sets, daily range): BP systolic 106–130; BP diastolic 44–96; PULSE 75–144; RESP 16–24; TEMP 36.5–37.1; O2SAT 95–98
[2025-07-23 04:28] LABS: Hematocrit 36.8 % (42.0-52.0); Hemoglobin 10.8 g/dL (14.0-18.0); Immature Granulocyte Percent A 0.3 % (0-0.5); Lymphocytes Absolute Auto 1.08 K/mm3 (0.9-3.2); Mean Corpuscular HGB Conc 29.3 g/dl (32-36); Mean Corpuscular Hemoglobin 30.8 pg (26-34); Mean Corpuscular Volume 104.8 fl (80-100); Nucleated Red Blood Cells Absolute Auto 0.000 K/mm3 (0.0-0.012); Nucleated Red Blood Cells Perc 0.0 % (0.0-0.2); Platelet Count Result 229 k/mm3 (150-375); Red Blood Count 3.51 M/mm3 (4.6-6.20); White Blood Count 7.9 K/mm3 (4.5-10.0)
[2025-07-23 04:43] LABS: Alanine Aminotransferase 8 U/L (6-50); Albumin Level 3.3 g/dL (3.5-5.1); Alkaline Phosphatase 72 U/L (38-126); Anion Gap 5 mmol/L (4-12); Aspartate Amino Transferase 16 U/L (17-59); Bilirubin,Total 0.5 mg/dL (0.2-1.3); Blood Urea Nitrogen 41 mg/dL (9-20); Calcium 8.4 mg/dL (8.4-10.2); Carbon Dioxide 21 mmol/L (22-30); Chloride 115 mmol/L (98-107); Estimated CRCL calculation 53 ml/min; Estimated Glomerular Filt Rate 49; Glucose 119 mg/dL (65-110); Magnesium 2.5 mg/dL (1.6-2.3); Potassium 4.7 mmol/L (3.4-5.0); Sodium 141 mmol/L (137-145); Total Protein 6.6 g/dL (6.3-8.2)
[2025-07-23 05:00] LABS: Troponin I 0.056 ng/mL (0.000-0.034)
[2025-07-23] MEDS: LEVOTHYROXINE SODIUM 100 MCG TABLET PO (06:02)
[2025-07-23] MEDS: METOPROLOL TARTRATE 12.5 MG TABLET PO (08:33)
[2025-07-23] MEDS: PANTOPRAZOLE 40 MG TABLET PO ×2 (08:34→20:53)
[2025-07-23] MEDS: FERROUS SULFATE 325 MG TABLET DR PO (08:34)
[2025-07-23] MEDS: cefTRIAXone 1 GM in SODIUM CHLORIDE 0.9% IV 50 ML 100 ML IVPB ×2 (08:35→21:17)
--- NOTE | 2025-07-23 16:19 | P.PNIM_ITS ---
Progress Note: A&P Assessment and Plan (1) Sepsis: Code(s): A41.9 - Sepsis, unspecified organism Status: Acute Assessment and Plan: Patient originally brought to the emergency room due to possible hypoxia altho ugh not noted on presentation. Patient with leukocytosis, tachycardia, tachypnea and hypotension concerning for sepsis. He also has confusion which also could be part of the sepsis picture. Possibly related to bacteremia but could be contaminant. Consider also dehydration from over-diuresis. Chest x-ray not consistent with pneumonia. UA not consistent with UTI. BCx GPC from one aerobic bottle only. He was started on Rocephin (07/22). WBC normal now. BP improved. HR better. CRP 14 but PCT 0.6. Add Vancomycin. Increase Rocephin to 2gm daily. Follow up on BCx results. Consider further imaging to determine source. Repeat BCx if this is not a contaminant (2) Bacteremia: Code(s): R78.81 - Bacteremia Status: Acute Assessment and Plan: As above (3) Hypotension: Code(s): I95.9 - Hypotension, unspecified Status: Acute Assessment and Plan: Patient with hypertension and takes Norvasc, Lasix, lisinopril and metoprolol at home. Patient found to be hypotensive on presentation. Again could be related to sepsis and/or dehydration. Will hold his antihypertensive medications including Lasix. Blood pressure has improved with IV fluids; IV fluids off now. Tolerated lower dose metoprolol. Continue to advance medications as BP tolerates Monitor closely (4) Atrial fibrillation with RVR: Code(s): I48.91 - Unspecified atrial fibrillation Status: Acute Assessment and Plan: Patient presents with tachycardia an EKG showing atrial fibrillation with RVR. This may be normal hemodynamic response of tachycardia related to hypotension. Echo showing EF 55-60%, normal diastolic fxn, moderate concentric LVH. Added back metoprolol at low dose and he tolerated this well. BP better. HR has improved. Off IV fluids now. Monitor on tele (5) FRANCISCO JAVIER (acute kidney injury): Code(s): N17.9 - Acute kidney failure, unspecified Status: Acute Assessment and Plan: Baseline creatinine is normal at around 1 noted last year. Creatinine 1.7, BUN 52 with an estimated GFR of 39. BUN/Cr >20. Lata 60 with FENa 1%. UA bland except for 2+ protein. Renal ultrasound normal. Urine eos negative. TCK 80. SPEP pending Cr better at 1.4. Follow for now. (6) Confusion: Code(s): R41.0 - Disorientation, unspecified Status: Acute Assessment and Plan: Patient with confusion. Independent sources state this is unusual for this patient. Could be related to sepsis. No CO2 retention noted. CT of the brain showing no acute findings. Folate and TSH normal. B12 low at 206. Replacement ordered. Monitor mental status (7) Sleep apnea: Qualifiers: Sleep apnea type: obstructive Qualified Code(s): G47.33 - Obstructive sleep apnea (adult) (pediatric) Code(s): G47.30 - Sleep apnea, unspecified Status: Acute Assessment and Plan: Patient has JERMAN. He is compliant with CPAP. ABG noted Continue CPAP (8) Type 2 diabetes mellitus without complication, with no history of insulin use: Code(s): E11.9 - Type 2 diabetes mellitus without complications Status: Acute Assessment and Plan: A1c 7.0. The patient's blood glucose was reviewed on 07/23 Glucose remains well controlled. Continue AccuCheks covering with sliding scale. Hypoglycemia protocol available as needed. Glipizide remains on hold. Continue to monitor Plan DVT Prophylaxis - Eliquis Code status - full Disp - PT/OT Subjective Date/time seen: 07/23/25 16:19 Interval history: 75yo male with hx of JERMAN, AFib, DM and HTN who [facility] for low oxygen saturation. SOB better. No CP. He is up walking in room with therapy. Exam Narrative: AF 98.1 130/96 100 18 98% ra Gen - NARD Chest - lungs are clear anteriorly. nml RR CV - irregularly irregular. Distant S1/S2. Tele showing AFib with improved rate control Abd -soft. Obese. Nontender. Ext - Trace to 1+ firm, woody edema Neuro - pleasant and cooperative Psych - normal mood and affect. Skin - warm and dry Objective Data Vital Signs Vital Signs: Vital Signs - 24 hr 07/22/25 18:00 07/22/25 19:13 07/22/25 20:00 Temperature 98.5 F Pulse Rate 96 96 Pulse Rate [With Activity During Therapy Session] Respiratory Rate 18 Blood Pressure 112/50 L Pulse Oximetry 94 98 Oxygen Delivery CPAP 07/22/25 20:00 07/22/25 21:15 07/22/25 21:15 Temperature Pulse Rate 96 94 108 H Pulse Rate [With Activity During Therapy Session] Respiratory Rate 27 H Blood Pressure Pulse Oximetry 98 Oxygen Delivery Autopap 07/22/25 22:00 07/22/25 23:26 07/22/25 23:53 Temperature 98.4 F Pulse Rate 94 97 Pulse Rate [With Activity During Therapy Session] Respiratory Rate 17 Blood Pressure 128/63 Pulse Oximetry 96 98 Oxygen Delivery CPAP 07/23/25 00:00 07/23/25 01:50 07/23/25 02:00 Temperature Pulse Rate 96 85 81 Pulse Rate [With Activity During Therapy Session] Respiratory Rate 21 H Blood Pressure Pulse Oximetry Oxygen Delivery Autopap 07/23/25 03:15 07/23/25 04:00 07/23/25 04:00 Temperature 98.7 F Pulse Rate 83 94 Pulse Rate [With Activity During Therapy Session] Respiratory Rate 17 Blood Pressure 106/49 L Pulse Oximetry 98 98 Oxygen Delivery CPAP 07/23/25 06:00 07/23/25 08:00 07/23/25 08:00 Temperature 97.7 F Pulse Rate 92 83 Pulse Rate [With Activity During Therapy Session] Respiratory Rate 20 Blood Pressure 128/53 L Pulse Oximetry 97 Oxygen Delivery Room Air 07/23/25 08:00 07/23/25 08:08 07/23/25 08:24 Temperature Pulse Rate 124 H Pulse Rate [With Activity During Therapy Session] 144 H Respiratory Rate Blood Pressure Pulse Oximetry 95 Oxygen Delivery Room Air Room Air 07/23/25 08:33 07/23/25 09:10 07/23/25 10:00 Temperature Pulse Rate 116 H 75 Pulse Rate [With Activity During Therapy Session] Respiratory Rate Blood Pressure Pulse Oximetry Oxygen Delivery Room Air 07/23/25 11:42 07/23/25 12:00 07/23/25 12:00 Temperature 98.1 F Pulse Rate 81 113 H Pulse Rate [With Activity During Therapy Session] Respiratory Rate 18 Blood Pressure 125/44 L Pulse Oximetry 98 Oxygen Delivery Room Air 07/23/25 14:00 07/23/25 16:00 Temperature 98.1 F Pulse Rate 93 100 Pulse Rate [With Activity During Therapy Session] Respiratory Rate 18 Blood Pressure 130/96 H Pulse Oximetry 98 Oxygen Delivery Intake/Output Intake/Output: Intake & Output 07/20/25 07/21/25 07/22/25 07/23/25 23:59 23:59 23:59 23:59 Intake Total 1830 480 Output Total 600 600 Balance 1230 -120 Meds/Results Medications: Active Medications Generic Name Dose Route Start Last Admin Trade Name Freq PRN Reason Stop Dose Admin Acetaminophen 650 mg 07/22/25 09:07 Acetaminophen 325 Mg Tablet PO TID PRN Pain Artificial Tears 1 drop 07/22/25 09:07 Artificial Tears Ophth Soln 15 Ml Bottle EACH EYE QID PRN Dry Eye(s) Calcium Carbonate 200 mg 07/22/25 09:07 Calcium Carbonate (Tums) 500 Mg (200 Mg Elemental) PO 08/21/25 16:59 BID PRN Heartburn Cyanocobalamin 1,000 mcg 07/23/25 21:00 Cyanocobalamin Inj 1,000 Mcg/Ml Vial IM 07/24/25 21:01 HS JOSE Dextrose 12.5 gm 07/22/25 09:03 Dextrose 50% 25 Gm/50 Ml Syringe IV PUSH PRN PRN Hypoglycemia Protocol Ferrous Sulfate 325 mg 07/22/25 09:15 07/23/25 08:34 Ferrous Sulfate [address] PO 325 mg DAILY@0800 JOSE Administration Fluticasone Propionate 2 spray 07/22/25 21:00 07/22/25 21:24 Fluticasone Propionate 0.05% Na Spr 16 Gm Btl (*Bkc) NASAL Not Given HS JOSE Glucagon 1 mg 07/22/25 09:03 Glucagon For Inj 1 Mg Vial IM PRN PRN Hypoglycemia Protocol Glucose 15 gm 07/22/25 09:03 Glucose Oral Gel 15 Gm Of Glucse In 37.5 Gm Tube PO PRN PRN Hypoglycemia Protocol Ceftriaxone Sodium 1 gm/ 50 mls @ 100 mls/hr 07/23/25 09:00 07/23/25 08:35 Sodium Chloride IVPB 07/28/25 09:29 100 mls/hr Q24H JOSE Administration Dextrose 1,000 mls @ 100 mls/hr 07/22/25 09:03 Dextrose 5% 1,000 Ml IVPB PRN PRN Hypoglycemia Protocol Vancomycin HCl 2,000 mg in 500 mls @ 250 mls/hr 07/23/25 15:00 Vancomycin 2,000 Mg/Ns 500 Ml IVPB 07/23/25 16:59 ONCE ONE Insulin Aspart 4 - 8 units 07/22/25 12:00 07/23/25 11:44 Insulin Aspart (*Bkc) 100 Units/Ml SUB-Q Not Given TIDWM [facility] Protocol Levothyroxine Sodium 100 mcg 07/22/25 09:15 07/23/25 06:02 Levothyroxine Sodium 100 Mcg Tablet PO 100 mcg DAILY@0630 JOSE Administration Metoprolol Tartrate 12.5 mg 07/22/25 09:10 07/23/25 08:33 Metoprolol Tartrate 12.5 Mg Tablet PO 12.5 mg Q12HR JOSE Administration Pantoprazole Sodium 40 mg 07/22/25 09:20 07/23/25 08:34 Pantoprazole 40 Mg Tablet PO 40 mg Q12HR JOSE Administration Simvastatin 40 mg 07/22/25 21:00 07/22/25 21:16 Simvastatin 20 Mg Tablet PO 40 mg HS JOSE Administration Vancomycin HCl 1 each 07/23/25 14:48 Vancomycin For Acute Kidney Injury IVPB PRN PRN Vancomycin Protocol Radiology Results: ITS Impressions Chest X-Ray 07/22/25 05:31 Impression: 1: No acute cardiopulmonary disease. Head CT 07/22/25 13:36 IMPRESSION: 1: No acute intracranial abnormality. Renal Ultrasound 07/22/25 14:50 IMPRESSION: 1. No hydronephrosis. 2. Limited study as above. Labs Labs: Laboratory Results - last 24 hr 07/22/25 07/22/25 07/23/25 09:21 17:00 04:10 WBC 7.9 RBC 3.51 L Hgb 10.8 L Hct 36.8 L MCV 104.8 H MCH 30.8 MCHC 29.3 L RDW 16.0 H Plt Count 229 MPV 9.8 Immature Gran % (Auto) 0.3 Neut % (Auto) 77.1 H Lymph % (Auto) 13.6 L [place] % (Auto) 7.8 Eos % (Auto) 1.1 Baso % (Auto) 0.1 L Lymph # (Auto) 1.08 [place] # (Auto) 0.6 Eos # (Auto) 0.1 Baso # (Auto) 0.0 Abs Immat Gran (auto) 0.02 Absolute Neuts (auto) 6.1 Absolute Nucleated RBC 0.000 Nucleated RBC % 0.0 Sodium 141 Potassium 4.7 Chloride 115 H Carbon Dioxide 21 L Anion Gap 5 BUN 41 H Creatinine 1.41 H Estim Creat Clear Calc 53 Estimated GFR 49 L Glucose 119 H POC Capillary Glucose 158 H Calcium 8.4 Magnesium 2.5 H Total Bilirubin 0.5 AST 16 L ALT 8 Alkaline Phosphatase 72 Troponin I 0.056 H* Total Protein 6.6 Albumin 3.3 L Tot Complement (CH50) 46 07/23/25 07/23/25 07/23/25 07:25 11:08 15:41 WBC RBC Hgb Hct MCV MCH MCHC RDW Plt Count MPV Immature Gran % (Auto) Neut % (Auto) Lymph % (Auto) [place] % (Auto) Eos % (Auto) Baso % (Auto) Lymph # (Auto) [place] # (Auto) Eos # (Auto) Baso # (Auto) Abs Immat Gran (auto) Absolute Neuts (auto) Absolute Nucleated RBC Nucleated RBC % Sodium Potassium Chloride Carbon Dioxide Anion Gap BUN Creatinine Estim Creat Clear Calc Estimated GFR Glucose POC Capillary Glucose 112 H 124 H 123 H Calcium Magnesium Total Bilirubin AST ALT Alkaline Phosphatase Troponin I Total Protein Albumin Tot Complement (CH50)
[2025-07-23] MEDS: VANCOMYCIN 2,000 MG/NS 500 ML 2,000 MG/500 ML BAG 250 MG IVPB (16:24)
[2025-07-23] MEDS: APIXABAN 5 MG TABLET PO (20:53)
[2025-07-23] MEDS: SIMVASTATIN 20 MG TABLET 40 MG PO (20:54)
[2025-07-23] MEDS: METOPROLOL TARTRATE 25 MG TABLET PO (20:54)
[2025-07-23] MEDS: CYANOCOBALAMIN INJ 1,000 MCG/ML VIAL 1000 MCG IM (20:55)
[2025-07-23] MEDS: ACETAMINOPHEN 325 MG TABLET 650 MG PO (21:12)
[2025-07-23] MEDS: DICLOFENAC SODIUM 1% 100 GM GEL (*BKC) 1 APPLIC TOPICAL (21:54)
[2025-07-24] VITALS (14 sets, daily range): BP systolic 106–142; BP diastolic 48–81; PULSE 82–107; RESP 16–23; TEMP 36.2–37; O2SAT 95–99
[2025-07-24 04:52] LABS: Albumin Level 3.2 g/dL (3.5-5.1); Anion Gap 5 mmol/L (4-12); Blood Urea Nitrogen 33 mg/dL (9-20); Calcium 8.6 mg/dL (8.4-10.2); Carbon Dioxide 20 mmol/L (22-30); Chloride 115 mmol/L (98-107); Estimated CRCL calculation 65 ml/min; Estimated Glomerular Filt Rate > 60; Glucose 121 mg/dL (65-110); Potassium 4.7 mmol/L (3.4-5.0); Sodium 140 mmol/L (137-145)
[2025-07-24] MEDS: LEVOTHYROXINE SODIUM 100 MCG TABLET PO (05:40)
[2025-07-24] MEDS: PANTOPRAZOLE 40 MG TABLET PO ×2 (09:26→20:20)
[2025-07-24] MEDS: METOPROLOL TARTRATE 25 MG TABLET PO ×2 (09:26→20:20)
[2025-07-24] MEDS: APIXABAN 5 MG TABLET PO ×2 (09:26→20:20)
[2025-07-24] MEDS: cefTRIAXone 2 GM in SODIUM CHLORIDE 0.9% IV 100 ML 200 ML IVPB (09:27)
[2025-07-24] MEDS: FERROUS SULFATE 325 MG TABLET DR PO (09:27)
[2025-07-24] MEDS: VANCOMYCIN 1,500 MG/NS 500 ML 1,500 MG/500 ML BAG 250 MG IVPB (10:18)
[2025-07-24] MEDS: DICLOFENAC SODIUM 1% 100 GM GEL (*BKC) 1 APPLIC TOPICAL ×2 (14:34→22:54)
[2025-07-24] MEDS: EUCERIN CREAM 454 GM JAR 1 APPLIC TOPICAL (14:38)
--- NOTE | 2025-07-24 15:29 | PM.IMPN ---
Progress Note: A&P Assessment and Plan (1) Sepsis: Code(s): A41.9 - Sepsis, unspecified organism Status: Acute Assessment and Plan: Patient originally brought to the emergency room due to possible hypoxia although not noted on presentation. Patient with leukocytosis, tachycardia, tachypnea and hypotension concerning for sepsis. He also has confusion which also could be part of the sepsis picture. Possibly due to bacteremia. Consider also dehydration from over-diuresis. Chest x-ray not consistent with pneumonia. UA not consistent with UTI. Has open wound in LLE and possible cellulitis. BCx growing Strep agalactiae (GBS) from one aerobic bottle only. He was started on Rocephin (07/22). WBC normal now. BP improved. HR better. CRP 14 but PCT 0.6. Added Vancomycin and Rocephin increased to 2gm daily. Source could be from LLE wound/celllulitis. Follow up repeat BCx results. Stop Vanc and continue Rocephin. (2) Hypotension: Code(s): I95.9 - Hypotension, unspecified Status: Acute Assessment and Plan: Patient with hypertension and takes Norvasc, Lasix, lisinopril and metoprolol at home. Patient found to be hypotensive on presentation. Related to sepsis with shock and/or dehydration. We held antihypertensive medications including Lasix. Blood pressure has improved with IV fluids; IV fluids off now. Tolerating metoprolol. Continue to advance medications as BP tolerates Monitor closely (3) Bacteremia: Code(s): R78.81 - Bacteremia Status: Acute Assessment and Plan: As above (4) Cellulitis of left leg: Code(s): L03.116 - Cellulitis of left lower limb Status: Acute Assessment and Plan: On admission, LLE with a purplish red hue that was blanchable but was unclear if cellulitic. In hindsight, suspect patient with LLE cellulitis on admission with now bacteremia. As above (5) Atrial fibrillation with RVR: Code(s): I48.91 - Unspecified atrial fibrillation Status: Acute Assessment and Plan: Patient presents with tachycardia an EKG showing atrial fibrillation with RVR. This may be normal hemodynamic response of tachycardia related to hypotension. Echo showing EF 55-60%, normal diastolic fxn, moderate concentric LVH. Added back metoprolol at low dose and he tolerated this well. BP better. HR has improved. Off IV fluids now. Eliquis resumed Continue to add back home meds as tolerated Monitor on tele (6) FRANCISCO JAVIER (acute kidney injury): Code(s): N17.9 - Acute kidney failure, unspecified Status: Acute Assessment and Plan: Baseline creatinine is normal at around 1 noted last year. Creatinine 1.7, BUN 52 with an estimated GFR of 39. BUN/Cr >20. Lata 60 with FENa 1%. UA bland except for 2+ protein. Renal ultrasound normal. Urine eos negative. TCK 80. SPEP pending FRANCISCO JAVIER related to sepsis, bacteremia, diuretics Cr better at 1.15. Follow (7) Confusion: Code(s): R41.0 - Disorientation, unspecified Status: Acute Assessment and Plan: Patient with confusion. Independent sources state this is unusual for this patient. [place] related to sepsis. No CO2 retention noted. CT of the brain showing no acute findings. Folate and TSH normal. B12 low at 206. Replacement ordered. Back to baseline. Monitor mental status (8) Sleep apnea: Qualifiers: Sleep apnea type: obstructive Qualified Code(s): G47.33 - Obstructive sleep apnea (adult) (pediatric) Code(s): G47.30 - Sleep apnea, unspecified Status: Acute Assessment and Plan: Patient has JERMAN. He is compliant with CPAP. ABG noted Continue CPAP (9) Type 2 diabetes mellitus without complication, with no history of insulin use: Code(s): E11.9 - Type 2 diabetes mellitus without complications Status: Acute Assessment and Plan: A1c 7.0. The patient's blood glucose was reviewed on 07/24 Glucose remains well controlled. Continue AccuCheks covering with sliding scale. Hypoglycemia protocol available as needed. Glipizide remains on hold. Continue to monitor Plan DVT Prophylaxis - Eliquis Code status - full Disp - PT/OT Subjective Date/time seen: 07/24/25 15:29 Interval history: 75yo male with hx of JERMAN, AFib, DM and HTN who is brought in from [facility] to the ED for low oxygen saturation. Slept well. No n/v. No Cp or SOB. Exam Narrative: AF 98.2 140/76 85 16 99% ra Gen - NARD sitting up in chair Chest - lungs are clear anteriorly. nml RR CV - irregularly irregular. S1/S2. Tele showing AFib with occasional tachycardia Abd -soft. Obese. Nontender. Ext - Trace to 1+ firm, woody edema Psych - normal mood and affect. Skin - serous drainage from a left lateral ankle chronic stasis wound. Dry skin bilateral LE. Objective Data Vital Signs Vital Signs: Vital Signs - 24 hr 07/23/25 16:00 07/23/25 16:00 07/23/25 16:00 Temperature 98.1 F Pulse Rate 100 99 Respiratory Rate 18 Blood Pressure 130/96 H Pulse Oximetry 98 Oxygen Delivery Room Air 07/23/25 19:51 07/23/25 20:00 07/23/25 20:00 Temperature 98.1 F Pulse Rate 111 H 97 Respiratory Rate 16 Blood Pressure 125/53 L Pulse Oximetry 96 Oxygen Delivery CPAP 07/23/25 20:54 07/23/25 22:00 07/23/25 23:44 Temperature 98.1 F Pulse Rate 98 92 83 Respiratory Rate 24 H 16 Blood Pressure 125/53 L Pulse Oximetry 97 96 Oxygen Delivery Autopap 07/24/25 00:00 07/24/25 04:00 07/24/25 05:04 Temperature Pulse Rate 95 82 101 H Respiratory Rate 20 Blood Pressure Pulse Oximetry 97 Oxygen Delivery Autopap 07/24/25 07:54 07/24/25 08:00 07/24/25 08:00 Temperature 98.0 F Pulse Rate 95 105 H Respiratory Rate 20 Blood Pressure 142/59 H Pulse Oximetry 95 Oxygen Delivery Room Air 07/24/25 09:26 07/24/25 12:00 07/24/25 12:00 Temperature 98.2 F Pulse Rate 99 89 85 Respiratory Rate 16 Blood Pressure 140/76 Pulse Oximetry 99 Oxygen Delivery Intake/Output Intake/Output: Intake & Output 07/21/25 07/22/25 07/23/25 07/24/25 23:59 23:59 23:59 23:59 Intake Total 1830 2660 954 Output Total 600 1050 450 Balance 1230 1610 504 Meds/Results Medications: Active Medications Generic Name Dose Route Start Last Admin Trade Name Freq PRN Reason Stop Dose Admin Acetaminophen 650 mg 07/22/25 09:07 07/23/25 21:12 Acetaminophen 325 Mg Tablet PO 650 mg TID PRN Administration Pain Apixaban 5 mg 07/23/25 21:00 07/24/25 09:26 Apixaban 5 Mg Tablet PO 5 mg Q12HR JOSE Administration Artificial Tears 1 drop 07/22/25 09:07 Artificial Tears Ophth Soln 15 Ml Bottle EACH EYE QID PRN Dry Eye(s) Calcium Carbonate 200 mg 07/22/25 09:07 Calcium Carbonate (Tums) 500 Mg (200 Mg Elemental) PO 08/21/25 16:59 BID PRN Heartburn Cyanocobalamin 1,000 mcg 07/23/25 21:00 07/23/25 20:55 Cyanocobalamin Inj 1,000 Mcg/Ml Vial IM 07/24/25 21:01 1,000 mcg HS JOSE Administration Dextrose 12.5 gm 07/22/25 09:03 Dextrose 50% 25 Gm/50 Ml Syringe IV PUSH PRN PRN Hypoglycemia Protocol Diclofenac Sodium 1 applic 07/23/25 22:00 07/24/25 14:34 Diclofenac Sodium 1% 100 Gm Gel (*Bkc) TOPICAL 1 applic Q8HR JOSE Administration Ferrous Sulfate 325 mg 07/22/25 09:15 07/24/25 09:27 Ferrous Sulfate [address] PO 325 mg DAILY@0800 JOSE Administration Fluticasone Propionate 2 spray 07/22/25 21:00 07/23/25 21:18 Fluticasone Propionate 0.05% Na Spr 16 Gm Btl (*Bkc) NASAL Not Given HS JOSE Glucagon 1 mg 07/22/25 09:03 Glucagon For Inj 1 Mg Vial IM PRN PRN Hypoglycemia Protocol Glucose 15 gm 07/22/25 09:03 Glucose Oral Gel 15 Gm Of Glucse In 37.5 Gm Tube PO PRN PRN Hypoglycemia Protocol Dextrose 1,000 mls @ 100 mls/hr 07/22/25 09:03 Dextrose 5% 1,000 Ml IVPB PRN PRN Hypoglycemia Protocol Ceftriaxone Sodium 2 gm/ 100 mls @ 200 mls/hr 07/24/25 09:00 07/24/25 09:27 Sodium Chloride IVPB 200 mls/hr Q24H JOSE Administration Vancomycin HCl 1,500 mg in 500 mls @ 250 mls/hr 07/24/25 10:00 07/24/25 10:18 Vancomycin 1,500 Mg/Ns 500 Ml IVPB 250 mls/hr Q18H JOSE Administration Insulin Aspart 4 - 8 units 07/22/25 12:00 07/24/25 11:53 Insulin Aspart (*Bkc) 100 Units/Ml SUB-Q Not Given TIDWM [facility] Protocol Levothyroxine Sodium 100 mcg 07/22/25 09:15 07/24/25 05:40 Levothyroxine Sodium 100 Mcg Tablet PO 100 mcg DAILY@0630 JOSE Administration Metoprolol Tartrate 25 mg 07/23/25 21:00 07/24/25 09:26 Metoprolol Tartrate 25 Mg Tablet PO 25 mg Q12HR JOSE Administration Multi-Ingred Cream/Lotion/Oil/Oint 1 applic 07/24/25 11:30 07/24/25 14:38 Eucerin Cream 454 Gm Jar TOPICAL 1 applic DAILY JOSE Administration Pantoprazole Sodium 40 mg 07/22/25 09:20 07/24/25 09:26 Pantoprazole 40 Mg Tablet PO 40 mg Q12HR JOSE Administration Simvastatin 40 mg 07/22/25 21:00 07/23/25 20:54 Simvastatin 20 Mg Tablet PO 40 mg HS JOSE Administration Radiology Results: ITS Impressions Chest X-Ray 07/22/25 05:31 Impression: 1: No acute cardiopulmonary disease. Head CT 07/22/25 13:36 IMPRESSION: 1: No acute intracranial abnormality. Renal Ultrasound 07/22/25 14:50 IMPRESSION: 1. No hydronephrosis. 2. Limited study as above. Labs Labs: Laboratory Results - last 24 hr 07/23/25 07/23/25 07/24/25 15:41 22:28 03:51 Sodium 140 Potassium 4.7 Chloride 115 H Carbon Dioxide 20 L Anion Gap 5 BUN 33 H Creatinine 1.15 Estim Creat Clear Calc 65 Estimated GFR > 60 Glucose 121 H POC Capillary Glucose 123 H 120 H Calcium 8.6 Phosphorus 3.2 Albumin 3.2 L 07/24/25 07/24/25 07:28 11:30 Sodium Potassium Chloride Carbon Dioxide Anion Gap BUN Creatinine Estim Creat Clear Calc Estimated GFR Glucose POC Capillary Glucose 184 H 118 H Calcium Phosphorus Albumin
--- NOTE | 2025-07-24 17:31 | PC.NURSE ---
This patient, Miles Pinto, was transferred to [ ] on 07/24/25 at 1715. Personal belongings sent with patient. Report given to [ Uyen]. Appropriate documentation sent with patient.
[2025-07-24] MEDS: ACETAMINOPHEN 325 MG TABLET 650 MG PO (20:18)
[2025-07-24] MEDS: SIMVASTATIN 20 MG TABLET 40 MG PO (20:20)
[2025-07-24] MEDS: METOPROLOL TARTRATE 12.5 MG TABLET PO (20:21)
[2025-07-24] MEDS: CYANOCOBALAMIN INJ 1,000 MCG/ML VIAL 1000 MCG IM (20:21)
[2025-07-25] VITALS (15 sets, daily range): BP systolic 124–152; BP diastolic 60–99; PULSE 63–114; RESP 16–24; TEMP 36.3–37.1; O2SAT 94–97
[2025-07-25 04:57] LABS: Hematocrit 39.0 % (42.0-52.0); Hemoglobin 11.2 g/dL (14.0-18.0); Immature Granulocyte Percent A 0.6 % (0-0.5); Lymphocytes Absolute Auto 0.99 K/mm3 (0.9-3.2); Mean Corpuscular HGB Conc 28.7 g/dl (32-36); Mean Corpuscular Hemoglobin 30.2 pg (26-34); Mean Corpuscular Volume 105.1 fl (80-100); Nucleated Red Blood Cells Absolute Auto 0.000 K/mm3 (0.0-0.012); Nucleated Red Blood Cells Perc 0.0 % (0.0-0.2); Platelet Count Result 253 k/mm3 (150-375); Red Blood Count 3.71 M/mm3 (4.6-6.20); White Blood Count 6.3 K/mm3 (4.5-10.0)
[2025-07-25 05:07] LABS: Albumin Level 3.3 g/dL (3.5-5.1); Anion Gap 4 mmol/L (4-12); Blood Urea Nitrogen 30 mg/dL (9-20); Calcium 8.7 mg/dL (8.4-10.2); Carbon Dioxide 21 mmol/L (22-30); Chloride 114 mmol/L (98-107); Estimated CRCL calculation 71 ml/min; Estimated Glomerular Filt Rate > 60; Glucose 121 mg/dL (65-110); Potassium 5.1 mmol/L (3.4-5.0); Sodium 139 mmol/L (137-145)
[2025-07-25] MEDS: DICLOFENAC SODIUM 1% 100 GM GEL (*BKC) 1 APPLIC TOPICAL ×3 (06:18→21:01)
[2025-07-25] MEDS: LEVOTHYROXINE SODIUM 100 MCG TABLET PO (06:19)
[2025-07-25] MEDS: cefTRIAXone 2 GM in SODIUM CHLORIDE 0.9% IV 100 ML 200 ML IVPB (08:00)
[2025-07-25] MEDS: METOPROLOL TARTRATE 25 MG TABLET PO ×2 (08:02→20:47)
[2025-07-25] MEDS: PANTOPRAZOLE 40 MG TABLET PO ×2 (08:02→20:46)
[2025-07-25] MEDS: APIXABAN 5 MG TABLET PO ×2 (08:03→20:46)
[2025-07-25] MEDS: CYANOCOBALAMIN 1,000 MCG TABLET 1000 MCG PO (08:03)
[2025-07-25] MEDS: METOPROLOL TARTRATE 12.5 MG TABLET PO ×2 (08:03→20:46)
[2025-07-25] MEDS: FERROUS SULFATE 325 MG TABLET DR PO (08:03)
[2025-07-25] MEDS: EUCERIN CREAM 454 GM JAR 1 APPLIC TOPICAL (08:03)
--- NOTE | 2025-07-25 12:05 | PM.IMPN ---
Progress Note: A&P Assessment and Plan (1) Sepsis: Code(s): A41.9 - Sepsis, unspecified organism Status: Acute Assessment and Plan: Patient originally brought to the emergency room due to possible hypoxia although not noted on presentation. Patient with leukocytosis, tachycardia, tachypnea and hypotension concerning for sepsis. He also has confusion which also could be part of the sepsis picture. Chest x-ray not consistent with pneumonia. UA not consistent with UTI. Has open wound in LLE and possible cellulitis. Sepsis from bacteremia with BCx growing Strep agalactiae (GBS) from one aerobic bottle only. Source from LLE cellulitis. He was started on Rocephin (07/22); added Vancomycin and Rocephin increased to 2gm daily when BCx turned positive. WBC remains normal. BP improved. HR better. Vanco stopped when bacteria ID'd Repeat BCx pending. Follow up repeat BCx results. Continue Rocephin. (2) Hypotension: Code(s): I95.9 - Hypotension, unspecified Status: Acute Assessment and Plan: Patient with hypertension and takes Norvasc, Lasix, lisinopril and metoprolol at home. Patient found to be hypotensive on presentation. Related to sepsis with shock and/or dehydration. We held antihypertensive medications including Lasix. Blood pressure has improved with IV fluids; IV fluids off now. Tolerating metoprolol. Add back Lasix. Continue to advance medications as BP tolerates Monitor closely (3) Bacteremia: Code(s): R78.81 - Bacteremia Status: Acute Assessment and Plan: As above (4) Cellulitis of left leg: Code(s): L03.116 - Cellulitis of left lower limb Status: Acute Assessment and Plan: On admission, LLE with a purplish red hue that was blanchable but was unclear if cellulitic. In hindsight, suspect patient with LLE cellulitis on admission with now bacteremia. Continue dressing changes. As above (5) Atrial fibrillation with RVR: Code(s): I48.91 - Unspecified atrial fibrillation Status: Acute Assessment and Plan: Patient presents with tachycardia an EKG showing atrial fibrillation with RVR. This may be normal hemodynamic response of tachycardia related to hypotension. Echo showing EF 55-60%, normal diastolic fxn, moderate concentric LVH. Added back metoprolol at low dose and he tolerated this well. BP better. HR has improved. Off IV fluids now. Aguedaqusalvador resumed Advanced metoprolol back to home dose. Monitor on tele (6) FRANCISCO JAVIER (acute kidney injury): Code(s): N17.9 - Acute kidney failure, unspecified Status: Acute Assessment and Plan: Baseline creatinine is normal at around 1 noted last year. Creatinine 1.7, BUN 52 with an estimated GFR of 39. BUN/Cr >20. Lata 60 with FENa 1%. UA bland except for 2+ protein. Renal ultrasound normal. Urine eos negative. TCK 80. SPEP pending FRANCISCO JAVIER related to sepsis, bacteremia, diuretics Cr better at 1.09. Potassium noted. Add back Lasix and monitor closely. (7) Confusion: Code(s): R41.0 - Disorientation, unspecified Status: Acute Assessment and Plan: Patient with confusion. Independent sources state this is unusual for this patient. [place] related to sepsis. No CO2 retention noted. CT of the brain showing no acute findings. Folate and TSH normal. B12 low at 206. Replacement ordered. Back to baseline. Monitor mental status (8) Sleep apnea: Qualifiers: Sleep apnea type: obstructive Qualified Code(s): G47.33 - Obstructive sleep apnea (adult) (pediatric) Code(s): G47.30 - Sleep apnea, unspecified Status: Acute Assessment and Plan: Patient has JERMAN. He is compliant with CPAP. ABG noted Continue CPAP (9) Type 2 diabetes mellitus without complication, with no history of insulin use: Code(s): E11.9 - Type 2 diabetes mellitus without complications Status: Acute Assessment and Plan: A1c 7.0. The patient's blood glucose was reviewed on 07/25 Glucose remains well controlled. Continue AccuCheks covering with sliding scale. Hypoglycemia protocol available as needed. Glipizide remains on hold. Continue to monitor Plan DVT Prophylaxis - Eliqusalvador Code status - full Disp - PT/OT Subjective Date/time seen: 07/25/25 12:05 Interval history: 75yo male with hx of JERMAN, AFib, DM and HTN who is brought in from assisted to the ED for low oxygen saturation. No problems overnight. No CP or SOB. Eating okay. no n/v. No diarrhea. Exam Narrative: AF 98.8 136/60 83 18 95% ra Gen - NARD Chest - faint expiratory wheeze o/w clear; nml RR CV - irregularly irregular. S1/S2. Tele showing AFib with controlled rate. Abd -soft. Obese. Nontender. Ext - indurated LE edema L>R. Psych - normal mood and affect. Skin - scant erythema to LLE. LLE dressing clean, dry and intact. Objective Data Vital Signs Vital Signs: Vital Signs - 24 hr 07/24/25 16:00 07/24/25 16:00 07/24/25 19:15 Temperature 98.6 F Pulse Rate 97 85 Respiratory Rate 20 23 H Blood Pressure 131/71 Pulse Oximetry 98 Oxygen Delivery Autopap Oxygen Flow Rate 07/24/25 19:15 07/24/25 19:53 07/24/25 20:00 Temperature 97.6 F Pulse Rate 100 Respiratory Rate 20 Blood Pressure 138/81 Pulse Oximetry 98 98 Oxygen Delivery Autopap CPAP Oxygen Flow Rate 2 07/24/25 20:00 07/24/25 20:20 07/24/25 20:21 Temperature Pulse Rate 107 H 94 94 Respiratory Rate Blood Pressure Pulse Oximetry Oxygen Delivery Oxygen Flow Rate 07/24/25 23:38 07/25/25 00:00 07/25/25 03:43 Temperature 97.1 F L 97.5 F L Pulse Rate 83 80 63 Respiratory Rate 20 20 Blood Pressure 106/48 L 124/62 Pulse Oximetry 95 97 Oxygen Delivery Oxygen Flow Rate 07/25/25 04:00 07/25/25 07:45 07/25/25 08:00 Temperature 97.6 F Pulse Rate 81 84 114 H Respiratory Rate 18 Blood Pressure 152/99 H Pulse Oximetry 97 Oxygen Delivery Oxygen Flow Rate 07/25/25 08:00 07/25/25 08:02 07/25/25 08:03 Temperature Pulse Rate 109 H 109 H Respiratory Rate Blood Pressure Pulse Oximetry Oxygen Delivery Room Air Oxygen Flow Rate 07/25/25 11:49 Temperature 98.8 F Pulse Rate 83 Respiratory Rate 18 Blood Pressure 136/60 Pulse Oximetry 95 Oxygen Delivery Oxygen Flow Rate Intake/Output Intake/Output: Intake & Output 07/22/25 07/23/25 07/24/25 07/25/25 23:59 23:59 23:59 23:59 Intake Total 1830 2660 1054 880 Output Total 600 1050 1050 650 Balance 1230 1610 4 230 Meds/Results Medications: Active Medications Generic Name Dose Route Start Last Admin Trade Name [place] PRN Reason Stop Dose Admin Acetaminophen 650 mg 07/22/25 09:07 07/24/25 20:18 Acetaminophen 325 Mg Tablet PO 650 mg TID PRN Administration Pain Apixaban 5 mg 07/23/25 21:00 07/25/25 08:03 Apixaban 5 Mg Tablet PO 5 mg Q12HR JOSE Administration Artificial Tears 1 drop 07/22/25 09:07 Artificial Tears Ophth Soln 15 Ml Bottle EACH EYE QID PRN Dry Eye(s) Calcium Carbonate 200 mg 07/22/25 09:07 Calcium Carbonate (Tums) 500 Mg (200 Mg Elemental) PO 08/21/25 16:59 BID PRN Heartburn Cyanocobalamin 1,000 mcg 07/25/25 09:00 07/25/25 08:03 Cyanocobalamin 1,000 Mcg Tablet PO 1,000 mcg QAM JOSE Administration Dextrose 12.5 gm 07/22/25 09:03 Dextrose 50% 25 Gm/50 Ml Syringe IV PUSH PRN PRN Hypoglycemia Protocol Diclofenac Sodium 1 applic 07/23/25 22:00 07/25/25 06:18 Diclofenac Sodium 1% 100 Gm Gel (*Bkc) TOPICAL 1 applic Q8HR JOSE Administration Ferrous Sulfate 325 mg 07/22/25 09:15 07/25/25 08:03 Ferrous Sulfate [address] PO 325 mg DAILY@0800 JOSE Administration Fluticasone Propionate 2 spray 07/22/25 21:00 07/24/25 20:30 Fluticasone Propionate 0.05% Na Spr 16 Gm Btl (*Bkc) NASAL Not Given HS JOSE Glucagon 1 mg 07/22/25 09:03 Glucagon For Inj 1 Mg Vial IM PRN PRN Hypoglycemia Protocol Glucose 15 gm 07/22/25 09:03 Glucose Oral Gel 15 Gm Of Glucse In 37.5 Gm Tube PO PRN PRN Hypoglycemia Protocol Dextrose 1,000 mls @ 100 mls/hr 07/22/25 09:03 Dextrose 5% 1,000 Ml IVPB PRN PRN Hypoglycemia Protocol Ceftriaxone Sodium 2 gm/ 100 mls @ 200 mls/hr 07/24/25 09:00 07/25/25 08:30 Sodium Chloride IVPB Infused Q24H JOSE Infusion Insulin Aspart 4 - 8 units 07/22/25 12:00 07/25/25 11:52 Insulin Aspart (*Bkc) 100 Units/Ml SUB-Q Not Given TIDWM [facility] Protocol Levothyroxine Sodium 100 mcg 07/22/25 09:15 07/25/25 06:19 Levothyroxine Sodium 100 Mcg Tablet PO 100 mcg DAILY@0630 JOSE Administration Metoprolol Tartrate 12.5 mg 07/24/25 21:00 07/25/25 08:03 Metoprolol Tartrate 12.5 Mg Tablet PO 12.5 mg Q12HR JOSE Administration Metoprolol Tartrate 25 mg 07/24/25 21:00 07/25/25 08:02 Metoprolol Tartrate 25 Mg Tablet PO 25 mg Q12HR JOSE Administration Multi-Ingred Cream/Lotion/Oil/Oint 1 applic 07/24/25 11:30 07/25/25 08:03 Eucerin Cream 454 Gm Jar TOPICAL 1 applic DAILY JOSE Administration Pantoprazole Sodium 40 mg 07/22/25 09:20 07/25/25 08:02 Pantoprazole 40 Mg Tablet PO 40 mg Q12HR JOSE Administration Simvastatin 40 mg 07/22/25 21:00 07/24/25 20:20 Simvastatin 20 Mg Tablet PO 40 mg HS JOSE Administration Radiology Results: ITS Impressions Chest X-Ray 07/22/25 05:31 Impression: 1: No acute cardiopulmonary disease. Head CT 07/22/25 13:36 IMPRESSION: 1: No acute intracranial abnormality. Renal Ultrasound 07/22/25 14:50 IMPRESSION: 1. No hydronephrosis. 2. Limited study as above. Labs Labs: Laboratory Results - last 24 hr 07/24/25 07/24/25 07/25/25 16:38 19:56 04:15 WBC 6.3 RBC 3.71 L Hgb 11.2 L Hct 39.0 L MCV 105.1 H MCH 30.2 MCHC 28.7 L RDW 15.6 H Plt Count 253 MPV 9.9 Immature Gran % (Auto) 0.6 H Neut % (Auto) 75.6 H Lymph % (Auto) 15.6 L Bowie % (Auto) 6.3 Eos % (Auto) 1.6 Baso % (Auto) 0.3 Lymph # (Auto) 0.99 Bowie # (Auto) 0.4 Eos # (Auto) 0.1 Baso # (Auto) 0.0 Abs Immat Gran (auto) 0.04 H Absolute Neuts (auto) 4.8 Absolute Nucleated RBC 0.000 Nucleated RBC % 0.0 Sodium 139 Potassium 5.1 H Chloride 114 H Carbon Dioxide 21 L Anion Gap 4 BUN 30 H Creatinine 1.09 Estim Creat Clear Calc 71 Estimated GFR > 60 Glucose 121 H POC Capillary Glucose 105 128 H Calcium 8.7 Phosphorus 3.1 Albumin 3.3 L 07/25/25 07/25/25 07:24 11:35 WBC RBC Hgb Hct MCV MCH MCHC RDW Plt Count MPV Immature Gran % (Auto) Neut % (Auto) Lymph % (Auto) Bowie % (Auto) Eos % (Auto) Baso % (Auto) Lymph # (Auto) Bowie # (Auto) Eos # (Auto) Baso # (Auto) Abs Immat Gran (auto) Absolute Neuts (auto) Absolute Nucleated RBC Nucleated RBC % Sodium Potassium Chloride Carbon Dioxide Anion Gap BUN Creatinine Estim Creat Clear Calc Estimated GFR Glucose POC Capillary Glucose 102 147 H Calcium Phosphorus Albumin
[2025-07-25] MEDS: FUROSEMIDE 40 MG TABLET PO (12:44)
[2025-07-25] MEDS: SIMVASTATIN 20 MG TABLET 40 MG PO (20:46)
[2025-07-25] MEDS: FLUTICASONE PROPIONATE 0.05% NA SPR 16 GM BTL (*BKC) 2 SPRAY NASAL (20:47)
[2025-07-26] VITALS (12 sets, daily range): BP systolic 113–139; BP diastolic 54–69; PULSE 71–95; RESP 18–22; TEMP 36.1–36.6; O2SAT 95–97
[2025-07-26] MEDS: MELATONIN 5 MG TABLET PO ×2 (00:48→20:47)
[2025-07-26 05:00] LABS: Anion Gap 5 mmol/L (4-12); Blood Urea Nitrogen 29 mg/dL (9-20); Calcium 8.6 mg/dL (8.4-10.2); Carbon Dioxide 23 mmol/L (22-30); Chloride 111 mmol/L (98-107); Estimated CRCL calculation 73 ml/min; Estimated Glomerular Filt Rate > 60; Glucose 124 mg/dL (65-110); Potassium 5.0 mmol/L (3.4-5.0); Sodium 139 mmol/L (137-145)
[2025-07-26] MEDS: LEVOTHYROXINE SODIUM 100 MCG TABLET PO (06:21)
[2025-07-26] MEDS: DICLOFENAC SODIUM 1% 100 GM GEL (*BKC) 1 APPLIC TOPICAL ×2 (06:21→21:30)
[2025-07-26] MEDS: APIXABAN 5 MG TABLET PO ×2 (08:03→20:47)
[2025-07-26] MEDS: FERROUS SULFATE 325 MG TABLET DR PO (08:03)
[2025-07-26] MEDS: METOPROLOL TARTRATE 25 MG TABLET PO ×2 (08:04→20:47)
[2025-07-26] MEDS: METOPROLOL TARTRATE 12.5 MG TABLET PO ×2 (08:04→20:48)
[2025-07-26] MEDS: cefTRIAXone 2 GM in SODIUM CHLORIDE 0.9% IV 100 ML 200 ML IVPB (08:04)
[2025-07-26] MEDS: CYANOCOBALAMIN 1,000 MCG TABLET 1000 MCG PO (08:04)
[2025-07-26] MEDS: FUROSEMIDE 40 MG TABLET PO (08:04)
[2025-07-26] MEDS: PANTOPRAZOLE 40 MG TABLET PO ×2 (08:04→20:47)
[2025-07-26] MEDS: EUCERIN CREAM 454 GM JAR 1 APPLIC TOPICAL (08:06)
--- NOTE | 2025-07-26 13:57 | P.PNIM_ITS ---
Progress Note: A&P Assessment and Plan (1) Sepsis: Code(s): A41.9 - Sepsis, unspecified organism Status: Acute Assessment and Plan: Patient originally brought to the emergency room due to possible hypoxia altho ugh not noted on presentation. Patient with leukocytosis, tachycardia, tachypnea and hypotension concerning for sepsis. He also has confusion which also could be part of the sepsis picture. Chest x-ray not consistent with pneumonia. UA not consistent with UTI. Has open wound in LLE and possible cellulitis. Sepsis from bacteremia with BCx growing Strep agalactiae (GBS) from one aerobic bottle only. Source from LLE cellulitis. He was started on Rocephin (07/22); added Vancomycin and Rocephin increased to 2gm daily when BCx turned positive. WBC remains normal. BP improved. HR better. Vanco stopped when bacteria ID'd Repeat BCx pending. Follow up repeat BCx results. Continue Rocephin. ID consulted. (2) Hypotension: Code(s): I95.9 - Hypotension, unspecified Status: Acute Assessment and Plan: Patient with hypertension and takes Norvasc, Lasix, lisinopril and metoprolol at home. Patient found to be hypotensive on presentation. Related to sepsis with shock and/or dehydration. We held antihypertensive medications including Lasix. Blood pressure has improved with IV fluids; IV fluids off now. Tolerating metoprolol and Lasix. Continue to advance medications as BP tolerates Monitor closely. (3) Bacteremia: Code(s): R78.81 - Bacteremia Status: Acute Assessment and Plan: As above (4) Cellulitis of left leg: Code(s): L03.116 - Cellulitis of left lower limb Status: Acute Assessment and Plan: On admission, LLE with a purplish red hue that was blanchable but was unclear if cellulitic. In hindsight, suspect patient with LLE cellulitis on admission with now bacteremia. Continue dressing changes. Add compression hose. Advance Lasix As above (5) Atrial fibrillation with RVR: Code(s): I48.91 - Unspecified atrial fibrillation Status: Acute Assessment and Plan: Patient presents with tachycardia and EKG showing atrial fibrillation with RVR. This may be normal hemodynamic response of tachycardia related to hypotension. Echo showing EF 55-60%, normal diastolic fxn, moderate concentric LVH. Added back metoprolol at low dose and he tolerated this well. BP better. HR has improved. Off IV fluids now. Eliquis resumed Advanced metoprolol back to home dose. HR stable. Okay to stop tele (6) FRANCISCO JAVIER (acute kidney injury): Code(s): N17.9 - Acute kidney failure, unspecified Status: Acute Assessment and Plan: Baseline creatinine is normal at around 1 noted last year. Creatinine 1.7, BUN 52 with an estimated GFR of 39. BUN/Cr >20. Lata 60 with FENa 1%. UA bland except for 2+ protein. Renal ultrasound normal. Urine eos negative. TCK 80. SPEP pending FRANCISCO JAVIER related to sepsis, bacteremia, diuretics Cr better at 1.06. Potassium noted. Advance Lasix and monitor closely. (7) Confusion: Code(s): R41.0 - Disorientation, unspecified Status: Acute Assessment and Plan: Patient with confusion. Independent sources state this is unusual for this patient. [place] related to sepsis. No CO2 retention noted. CT of the brain showing no acute findings. Folate and TSH normal. B12 low at 206. Replacement ordered. Still confused at times. Consider chronic and not noted directly and/or related to low B12. Monitor mental status. (8) Sleep apnea: Qualifiers: Sleep apnea type: obstructive Qualified Code(s): G47.33 - Obstructive sleep apnea (adult) (pediatric) Code(s): G47.30 - Sleep apnea, unspecified Status: Acute Assessment and Plan: Patient has JERMAN. He is compliant with CPAP. ABG noted Continue CPAP (9) Type 2 diabetes mellitus without complication, with no history of insulin use: Code(s): E11.9 - Type 2 diabetes mellitus without complications Status: Acute Assessment and Plan: A1c 7.0. The patient's blood glucose was reviewed on 07/26 Glucose remains well controlled. Continue AccuCheks covering with sliding scale. Hypoglycemia protocol available as needed. Glipizide remains on hold. Continue to monitor Plan DVT Prophylaxis - Yesenia Code status - full Disp - PT/OT Subjective Date/time seen: 07/26/25 13:57 Interval history: 75yo male with hx of JERMAN, AFib, DM and HTN who is brought in from residential to the ED for low oxygen saturation. No problems overnight. No CP or SOB. Eating okay. No n/v. +BMs. Exam Narrative: AF 97.4 124/69 75 18 95% ra Gen - NARD Chest - CTA anteriorly. nml RR CV - irregularly irregular. S1/S2. Tele showing AFib with controlled rate. Abd -soft. Obese. Nontender. Ext - indurated LE edema L>R. Psych - normal mood and affect. Neuro - AO x1 (location) but not date or michael name. Skin - fading erythema to LLE. LLE dressing with serous staining noted. Objective Data Vital Signs Vital Signs: Vital Signs - 24 hr 07/25/25 15:53 07/25/25 16:00 07/25/25 20:00 Temperature 97.4 F L 97.4 F L Pulse Rate 73 90 85 Respiratory Rate 18 16 Blood Pressure 141/76 H 143/65 H Pulse Oximetry 94 97 Oxygen Delivery 07/25/25 20:00 07/25/25 20:00 07/25/25 20:35 Temperature Pulse Rate 84 Respiratory Rate 24 H Blood Pressure Pulse Oximetry Oxygen Delivery CPAP Autopap 07/25/25 20:46 07/25/25 20:47 07/26/25 00:00 Temperature 97.3 F L Pulse Rate 92 92 83 Respiratory Rate 20 Blood Pressure 133/60 Pulse Oximetry 97 Oxygen Delivery 07/26/25 00:00 07/26/25 03:45 07/26/25 04:00 Temperature 97 F L Pulse Rate 72 90 91 Respiratory Rate 20 Blood Pressure 139/61 Pulse Oximetry 96 Oxygen Delivery 07/26/25 07:51 07/26/25 08:00 07/26/25 08:04 Temperature 97.2 F L Pulse Rate 75 75 Respiratory Rate 20 Blood Pressure 113/54 L Pulse Oximetry 97 Oxygen Delivery Room Air 07/26/25 08:04 07/26/25 12:00 Temperature 97.4 F L Pulse Rate 75 75 Respiratory Rate 18 Blood Pressure 124/69 Pulse Oximetry 95 Oxygen Delivery Intake/Output Intake/Output: Intake & Output 07/23/25 07/24/25 07/25/25 07/26/25 23:59 23:59 23:59 23:59 Intake Total 2660 1054 2010 75 Output Total 1050 1050 2350 1500 Balance 1616 2 -775 -026 Meds/Results Medications: Active Medications Generic Name Dose Route Start Last Admin Trade Name Freq PRN Reason Stop Dose Admin Acetaminophen 650 mg 07/22/25 09:07 07/24/25 20:18 Acetaminophen 325 Mg Tablet PO 650 mg TID PRN Administration Pain Apixaban 5 mg 07/23/25 21:00 07/26/25 08:03 Apixaban 5 Mg Tablet PO 5 mg Q12HR JOSE Administration Artificial Tears 1 drop 07/22/25 09:07 Artificial Tears Ophth Soln 15 Ml Bottle EACH EYE QID PRN Dry Eye(s) Calcium Carbonate 200 mg 07/22/25 09:07 Calcium Carbonate (Tums) 500 Mg (200 Mg Elemental) PO 08/21/25 16:59 BID PRN Heartburn Cyanocobalamin 1,000 mcg 07/25/25 09:00 07/26/25 08:04 Cyanocobalamin 1,000 Mcg Tablet PO 1,000 mcg QAM JOSE Administration Dextrose 12.5 gm 07/22/25 09:03 Dextrose 50% 25 Gm/50 Ml Syringe IV PUSH PRN PRN Hypoglycemia Protocol Diclofenac Sodium 1 applic 07/23/25 22:00 07/26/25 13:21 Diclofenac Sodium 1% 100 Gm Gel (*Bkc) TOPICAL Not Given Q8HR JOSE Ferrous Sulfate 325 mg 07/22/25 09:15 07/26/25 08:03 Ferrous Sulfate [address] PO 325 mg DAILY@0800 JOSE Administration Fluticasone Propionate 2 spray 07/22/25 21:00 07/25/25 20:47 Fluticasone Propionate 0.05% Na Spr 16 Gm Btl (*Bkc) NASAL 2 spray HS JOSE Administration Furosemide 40 mg 07/25/25 12:15 07/26/25 08:04 Furosemide 40 Mg Tablet PO 40 mg DAILY JOSE Administration Glucagon 1 mg 07/22/25 09:03 Glucagon For Inj 1 Mg Vial IM PRN PRN Hypoglycemia Protocol Glucose 15 gm 07/22/25 09:03 Glucose Oral Gel 15 Gm Of Glucse In 37.5 Gm Tube PO PRN PRN Hypoglycemia Protocol Dextrose 1,000 mls @ 100 mls/hr 07/22/25 09:03 Dextrose 5% 1,000 Ml IVPB PRN PRN Hypoglycemia Protocol Ceftriaxone Sodium 2 gm/ 100 mls @ 200 mls/hr 07/24/25 09:00 07/26/25 08:04 Sodium Chloride IVPB 200 mls/hr Q24H JOSE Administration Insulin Aspart 4 - 8 units 07/22/25 12:00 07/26/25 11:41 Insulin Aspart (*Bkc) 100 Units/Ml SUB-Q Not Given TIDWM [facility] Protocol Levothyroxine Sodium 100 mcg 07/22/25 09:15 07/26/25 06:21 Levothyroxine Sodium 100 Mcg Tablet PO 100 mcg DAILY@0630 JOSE Administration Melatonin 5 mg 07/26/25 00:35 07/26/25 00:48 Melatonin 5 Mg Tablet PO 5 mg HS JOSE Administration Metoprolol Tartrate 12.5 mg 07/24/25 21:00 07/26/25 08:04 Metoprolol Tartrate 12.5 Mg Tablet PO 12.5 mg Q12HR JOSE Administration Metoprolol Tartrate 25 mg 07/24/25 21:00 07/26/25 08:04 Metoprolol Tartrate 25 Mg Tablet PO 25 mg Q12HR JOSE Administration Multi-Ingred Cream/Lotion/Oil/Oint 1 applic 07/24/25 11:30 07/26/25 08:06 Eucerin Cream 454 Gm Jar TOPICAL 1 applic DAILY JOSE Administration Pantoprazole Sodium 40 mg 07/22/25 09:20 07/26/25 08:04 Pantoprazole 40 Mg Tablet PO 40 mg Q12HR JOSE Administration Simvastatin 40 mg 07/22/25 21:00 07/25/25 20:46 Simvastatin 20 Mg Tablet PO 40 mg HS JOSE Administration Radiology Results: ITS Impressions Chest X-Ray 07/22/25 05:31 Impression: 1: No acute cardiopulmonary disease. Head CT 07/22/25 13:36 IMPRESSION: 1: No acute intracranial abnormality. Renal Ultrasound 07/22/25 14:50 IMPRESSION: 1. No hydronephrosis. 2. Limited study as above. Labs Labs: Laboratory Results - last 24 hr 07/25/25 07/25/25 07/26/25 16:24 21:00 04:19 Sodium 139 Potassium 5.0 Chloride 111 H Carbon Dioxide 23 Anion Gap 5 BUN 29 H Creatinine 1.06 Estim Creat Clear Calc 73 Estimated GFR > 60 Glucose 124 H POC Capillary Glucose 87 157 H Calcium 8.6 07/26/25 07/26/25 07:31 11:26 Sodium Potassium Chloride Carbon Dioxide Anion Gap BUN Creatinine Estim Creat Clear Calc Estimated GFR Glucose POC Capillary Glucose 110 H 144 H Calcium
[2025-07-26] MEDS: FUROSEMIDE 20 MG TABLET PO (14:33)
[2025-07-26] MEDS: SIMVASTATIN 20 MG TABLET 40 MG PO (20:47)
[2025-07-26] MEDS: FLUTICASONE PROPIONATE 0.05% NA SPR 16 GM BTL (*BKC) 2 SPRAY NASAL (20:48)
[2025-07-27] VITALS (10 sets, daily range): BP systolic 113–143; BP diastolic 42–72; PULSE 72–91; RESP 18–28; TEMP 36.3–36.7; O2SAT 96–99
[2025-07-27 04:48] LABS: Hematocrit 39.6 % (42.0-52.0); Hemoglobin 11.8 g/dL (14.0-18.0); Immature Granulocyte Percent A 0.5 % (0-0.5); Lymphocytes Absolute Auto 1.01 K/mm3 (0.9-3.2); Mean Corpuscular HGB Conc 29.8 g/dl (32-36); Mean Corpuscular Hemoglobin 30.4 pg (26-34); Mean Corpuscular Volume 102.1 fl (80-100); Nucleated Red Blood Cells Absolute Auto 0.000 K/mm3 (0.0-0.012); Nucleated Red Blood Cells Perc 0.0 % (0.0-0.2); Platelet Count Result 260 k/mm3 (150-375); Red Blood Count 3.88 M/mm3 (4.6-6.20); White Blood Count 7.9 K/mm3 (4.5-10.0)
[2025-07-27 05:11] LABS: Albumin Level 3.5 g/dL (3.5-5.1); Anion Gap 4 mmol/L (4-12); Anisocytosis 1+; Blood Urea Nitrogen 28 mg/dL (9-20); Calcium 8.7 mg/dL (8.4-10.2); Carbon Dioxide 26 mmol/L (22-30); Chloride 108 mmol/L (98-107); Estimated CRCL calculation 74 ml/min; Estimated Glomerular Filt Rate > 60; Glucose 121 mg/dL (65-110); Magnesium 2.0 mg/dL (1.6-2.3); Microcytosis 1+ (NORMAL); Potassium 5.0 mmol/L (3.4-5.0); Sodium 138 mmol/L (137-145)
[2025-07-27 05:12] LABS: Ovalocytes Occasional; Schistocytes None Seen
[2025-07-27] MEDS: LEVOTHYROXINE SODIUM 100 MCG TABLET PO (05:54)
[2025-07-27] MEDS: DICLOFENAC SODIUM 1% 100 GM GEL (*BKC) 1 APPLIC TOPICAL ×2 (05:54→21:45)
[2025-07-27] MEDS: METOPROLOL TARTRATE 25 MG TABLET PO ×2 (09:13→21:44)
[2025-07-27] MEDS: FERROUS SULFATE 325 MG TABLET DR PO (09:16)
[2025-07-27] MEDS: FUROSEMIDE 40 MG TABLET PO (09:16)
[2025-07-27] MEDS: APIXABAN 5 MG TABLET PO ×2 (09:16→21:44)
[2025-07-27] MEDS: METOPROLOL TARTRATE 12.5 MG TABLET PO ×2 (09:16→21:44)
[2025-07-27] MEDS: PANTOPRAZOLE 40 MG TABLET PO ×2 (09:16→21:44)
[2025-07-27] MEDS: CYANOCOBALAMIN 1,000 MCG TABLET 1000 MCG PO (09:16)
[2025-07-27] MEDS: cefTRIAXone 2 GM in SODIUM CHLORIDE 0.9% IV 100 ML 200 ML IVPB (09:17)
--- NOTE | 2025-07-27 10:52 | P.CONINF_ITS ---
Assessment and Plan Assessment and plan (1) Bacteremia: Code(s): R78.81 - Bacteremia Status: Acute (2) Bacteremia due to group B Streptococcus: Code(s): R78.81 - Bacteremia; B95.1 - Streptococcus, group B, as the cause of diseases classified elsewhere Status: Acute (3) Sepsis: Code(s): A41.9 - Sepsis, unspecified organism Status: Acute (4) Cellulitis of left leg: Code(s): L03.116 - Cellulitis of left lower limb Status: Acute Plan # Group B Streptococcus bacteremia on presentation. Possibly secondary to left leg cellulitis. # Acute sepsis secondary to the above, resolved. # Left lower extremity cellulitis in the setting of what appears to be chronic stasis dermatitis and superficial wound formation. Plan: -- continue ceftriaxone. Direct treatment toward bacteremia and cellulitis. If repeat blood cultures remain negative anticipate a 10 day course of antibiotics. Decision regarding eventual transition to oral to follow. Anticipate eventual change to oral amoxicillin 1 g Q 8 hours. HPI Data of Consult Date/Time: 07/27/25 10:52 Requesting Physician: Jayro Guerra MD Primary Care Provider: Leobardo yMles MD Consult Narrative Reason for consult: concern for sepsis Narrative: Miles Pinto is a 75 year old male longterm resident with history of obstructive sleep apnea on q.h.s. CPAP, diabetes, hypertension, and atrial fibrillation. Transferred to ED for evaluation of hypoxemia 07/22/2025. Noted to be hypotensive, tachycardic, and tachypneic with EMS report of room air O2 saturation 90% although with improved oxygenation in the emergency room. Found to have distal left lower extremity skin changes suggestive of chronic stasis dermatitis with superficial wound and possible secondary cellulitis. WBC 13, BUN 52 and creatinine 1.7, and a negative rapid respiratory screen. Urinalysis without pyuria. Chest x-ray without evidence of pneumonia. Placed on ceftriaxone Regarding left leg dermatitis with wound, patient admits to a some degree of chronic leg swelling and intermittent left leg wound development occurring over the last 4 years. Admission blood cultures 07/22 now positive in 1/4 bottles for Streptococcus agalactiae. Transthoracic echocardiogram without documented vegetation. Repeat blood cultures 07/24 negative at 24 hours. Review of Systems 2 Review of Systems: He denies left leg pain. All systems reviewed & are unremarkable except as noted in HPI and below PMFSH Past Medical History Medical History (Updated 07/27/25 @ 11:07 by Isaías Crouch MD) Sleep apnea Adult hypothyroidism Morbid (severe) obesity due to excess calories Colon polyp Shingles Chronic venous insufficiency Ventral hernia Diabetes type 2, controlled GERD (gastroesophageal reflux disease) Hypercholesteremia Hypertension Surgical History Surgical History History of knee replacement procedure of left knee History of knee replacement procedure of right knee History of cholecystectomy Family History Family History Father Family history of heart disease in male family member before age 55, Onset Age: 64 Patient's father is Family history of cardiovascular disease Other Family history of kidney disease Family history of osteoarthritis Hypertension Social History Social History (Updated 07/22/25 @ 08:31 by Sathya Mcdowell MD) Social History: Patient resides at [facility]. Lives alone in his apartment. He does not receive meals from the facility. He has an aide 20 hours per week to help with ADLs. No children. He is single. Denies tobacco or drug use. He rarely drinks alcohol. Surrogate decision maker -sister Code status -full Smoking status: Never smoker Second hand tobacco smoke exposure: No Alcohol intake: never Substance use: never Substance use type: does not use Do You Feel Safe in your Home?: Yes Lack of Transportation: No Lack of Food: Never True Current Housing: I Have Housing Concerned About Future Housing: No Difficulty Paying Gas/Electric Bills: No Difficulty Paying for Meds: No Currently Unemployed: No Education: High School Diploma/GED Difficulty w/ Childcare or Family Care: No Gender identity (if verbalized by the patient): Male Spiritual care concerns: No Meds Home Medications and Allergies Home Medications ?Medication ?Instructions ?Recorded ?Confirmed ?Type ferrous sulfate 325 mg (65 mg 325 mg PO DAILY #90 tabs 10/31/20 07/22/25 Rx iron) tablet,delayed release omeprazole 40 mg capsule,delayed 40 mg PO DAILY #90 ca ps 10/31/20 07/22/25 Rx release glipizide 2.5 mg tablet, extended 2.5 mg PO DAILY #90 tabs 01/02/21 11/05/24 Rx release 24 hr furosemide 40 mg tablet See Rx Instructions .Route 0 03/01/21 07/22/25 Rx .COMPLEX #30 tabs levothyroxine 100 mcg tablet See Rx Instructions .Rout e 03/06/21 07/22/25 Rx .COMPLEX #90 tabs fluticasone propionate 50 100 g intranasal DAILY 06/1207/22/25 History mcg/actuation nasal spray,suspension propylene glycol 1 %-glycerin 0.3 1 drp EACH EYE QID P RN dry eye(s) 05/09/23 07/22/25 Rx % eye drops (Artificial Tears #30 mL (glycerin-peg)) Antacid (calcium carbonate) 500 mg PO BID 06/30/24 History acetaminophen 325 mg tablet 650 mg PO TID PRN Pain 05/1807/22/25 History amlodipine 5 mg tablet 5 mg PO DAILY 06/30/2407/22 History ergocalciferol (vitamin D2) 1,250 1,250 mcg PO WEEKLY 06/30/24 11/05/24 History mcg (50,000 unit) capsule lisinopril 20 mg tablet 40 mg PO DAILY 06/30/2406/26 History loperamide 2 mg tablet (Imodium 2 mg PO Q4-6H PRN Loos e Stool 06/30/24 07/22/25 History A-D) simethicone 40 mg chewable tablet 40 mg PO BID 4 11/05/24 History simvastatin 40 mg tablet 40 mg PO HS 06/30/24 5 History apixaban 5 mg tablet (Eliquis) 5 mg PO Q12HR #180 tabs 07/05/24 07/22/25 Rx doxycycline hyclate 100 mg tablet 100 mg PO Q12HR #3 t abs 07/05/24 11/05/24 Rx metoprolol tartrate 37.5 mg tablet 37.5 mg PO BID #180 tabs 07/05/24 07/22/25 Rx hydrocodone 7.5 mg-acetaminophen 1 tablet PO Q4H PRN p ain #120 tabs 05/13/25 07/22/25 Rx 325 mg tablet Allergies Allergy/AdvReac Type Severity Reaction Status Date / Time levofloxacin Allergy Mild Rash Verified 11/05/24 11:14 Quinolones Allergy Mild Rash Verified 11/05/24 11:14 Vital Signs Vital Signs - 24 hr 07/26/25 12:00 07/26/25 12:00 07/26/25 15:59 Temperature 97.4 F L 97.5 F L Pulse Rate 75 86 88 Respiratory Rate 18 18 Blood Pressure 124/69 138/69 Pulse Oximetry 95 97 Oxygen Delivery 07/26/25 20:00 07/26/25 20:00 07/26/25 20:47 Temperature 97.8 F Pulse Rate 71 92 Respiratory Rate 20 Blood Pressure 125/67 Pulse Oximetry 96 Oxygen Delivery Room Air 07/26/25 20:48 07/26/25 21:45 07/27/25 00:00 Temperature 97.8 F Pulse Rate 92 95 72 Respiratory Rate 22 H 20 Blood Pressure 125/72 Pulse Oximetry 95 96 Oxygen Delivery Autopap 07/27/25 04:00 07/27/25 08:00 07/27/25 08:00 Temperature 97.4 F L Pulse Rate 83 88 Respiratory Rate 20 18 Blood Pressure 131/68 113/52 L Pulse Oximetry 99 96 Oxygen Delivery Room Air 07/27/25 09:13 07/27/25 09:16 Temperature Pulse Rate 88 88 Respiratory Rate Blood Pressure Pulse Oximetry Oxygen Delivery Exam 2 Narrative: Awake, alert, interactive, and appropriate. No distress. He is obese. Normocephalic and without conjunctivitis. Normal respiratory effort. Abdomen protuberant but not markedly distended. Bilateral lower extremities with distal hyperpigmentation. Left leg with clean dressing. Photos of left leg reviewed: Erythema versus hyperpigmentation with scaling and shallow wound development. Results Labs 07/27/25 04:08 07/27/25 04:08 Labs: Short CBC 07/27/25 Range/Units 04:08 WBC 7.9 (4.5-10.0) K/mm3 Hgb 11.8 L (14.0-18.0) g/dL Hct 39.6 L (42.0-52.0) % Plt Count 260 (150-375) k/mm3 BMP 07/27/25 04:08 Sodium 138 Potassium 5.0 Chloride 108 H Carbon Dioxide 26 BUN 28 H Creatinine 1.05 Glucose 121 H Calcium 8.7 Liver Function 07/27/25 Range/Units 04:08 Albumin 3.5 (3.5-5.1) g/dL
[2025-07-27] MEDS: EUCERIN CREAM 454 GM JAR 1 APPLIC TOPICAL (11:10)
[2025-07-27] MEDS: FUROSEMIDE 20 MG TABLET PO (14:01)
[2025-07-27 15:08] LABS: Albumin, U 7.3 % (.); Alpha-1-Globulin, U 2.2 % (.); Alpha-2-Globulin, U 33.0 % (.); Beta Globulin, U 42.9 % (.); Gamma Globulin, U 14.6 % (.)
--- NOTE | 2025-07-27 15:19 | PC.NURSE ---
On 07/27/25, the student, [Alicia Cary], provided care and completed [facility] documentation on this patient. I have reviewed the student's documentation and agree with the findings.
--- NOTE | 2025-07-27 16:50 | P.PNIM_ITS ---
Progress Note: A&P Assessment and Plan (1) Sepsis: Code(s): A41.9 - Sepsis, unspecified organism Status: Acute Assessment and Plan: Patient originally brought to the emergency room due to possible hypoxia altho ugh not noted on presentation. Patient with leukocytosis, tachycardia, tachypnea and hypotension concerning for sepsis. He also has confusion which also could be part of the sepsis picture. Chest x-ray not consistent with pneumonia. UA not consistent with UTI. Has open wound in LLE and possible cellulitis. Sepsis from bacteremia with BCx growing Strep agalactiae (GBS) from one aerobic bottle only. Source from LLE cellulitis. He was started on Rocephin (07/22); added Vancomycin and Rocephin increased to 2gm daily when BCx turned positive. WBC remains normal. BP improved. HR better. Vanco stopped when bacteria ID'd Repeat BCx (07/24) NGTD ID consulted and appreciate their input. Continue Rocephin. Per ID, anticipate changing to Amoxicillin 1000mg Q8hr to complete 10 day course from negative cultures (2) Hypotension: Code(s): I95.9 - Hypotension, unspecified Status: Acute Assessment and Plan: Patient with hypertension and takes Norvasc, Lasix, lisinopril and metoprolol at home. Patient found to be hypotensive on presentation. Related to sepsis with shock and/or dehydration. We held antihypertensive medications including Lasix. Blood pressure has improved with IV fluids; IV fluids off now. Tolerating metoprolol and Lasix. Continue to advance medications as BP tolerates Monitor closely. (3) Bacteremia: Code(s): R78.81 - Bacteremia Status: Acute Assessment and Plan: As above (4) Cellulitis of left leg: Code(s): L03.116 - Cellulitis of left lower limb Status: Acute Assessment and Plan: On admission, LLE with a purplish red hue that was blanchable but was unclear if cellulitic. In hindsight, suspect patient with LLE cellulitis on admission with now bacteremia. Continue dressing changes. Compression hose added. Advanced Lasix and tolerting As above (5) Atrial fibrillation with RVR: Code(s): I48.91 - Unspecified atrial fibrillation Status: Acute Assessment and Plan: Patient presents with tachycardia and EKG showing atrial fibrillation with RVR. This may be normal hemodynamic response of tachycardia related to hypotension. Echo showing EF 55-60%, normal diastolic fxn, moderate concentric LVH. Added back metoprolol at low dose and he tolerated this well. BP better. HR has improved. Off IV fluids now. Eliquis resumed Advanced metoprolol back to home dose. HR stable. Off tele now (6) FRANCISCO JAVIER (acute kidney injury): Code(s): N17.9 - Acute kidney failure, unspecified Status: Acute Assessment and Plan: Baseline creatinine is normal at around 1 noted last year. Creatinine 1.7, BUN 52 with an estimated GFR of 39. BUN/Cr >20. Lata 60 with FENa 1%. UA bland except for 2+ protein. Renal ultrasound normal. Urine eos negative. TCK 80. SPEP pending FRANCISCO JAVIER related to sepsis, bacteremia, diuretics Cr better at 1.05. Potassium noted. Tolerating higher dose Lasix. Add low potassium diet. (7) Confusion: Code(s): R41.0 - Disorientation, unspecified Status: Acute Assessment and Plan: Patient with confusion. No CO2 retention noted. CT of the brain showing no acute findings. Folate and TSH normal. B12 low at 206. Replacement ordered. [place] confusion related to sepsis but may have mild underlying cognitive dysfunction. Still confused at times. Consider chronic and not noted directly and/or related to low B12. Monitor mental status. (8) Sleep apnea: Qualifiers: Sleep apnea type: obstructive Qualified Code(s): G47.33 - Obstructive sleep apnea (adult) (pediatric) Code(s): G47.30 - Sleep apnea, unspecified Status: Acute Assessment and Plan: Patient has JERMAN. He is compliant with CPAP. ABG noted Continue CPAP (9) Type 2 diabetes mellitus without complication, with no history of insulin use: Code(s): E11.9 - Type 2 diabetes mellitus without complications Status: Acute Assessment and Plan: A1c 7.0. The patient's blood glucose was reviewed on 07/27 Glucose remains well controlled. Continue AccuCheks covering with sliding scale. Hypoglycemia protocol available as needed. Glipizide remains on hold. Continue to monitor Plan DVT Prophylaxis - Yesenia Code status - full Disp - PT/OT Subjective Date/time seen: 07/27/25 16:50 Interval history: 75yo male with hx of JERMAN, AFib, DM and HTN who is brought in from half-way to the ED for low oxygen saturation. Feels good today. Slept well. +BMs. No Cp or SOB. No n/v. no diarrhea. Eating okay. Exam Narrative: AF 97.9 127/42 90 18 98% ra Gen - NARD Chest - scattered faint expiratory wheezes posteriorly. nml RR CV - irregularly irregular. S1/S2 Abd -soft. Obese. Nontender. Ext - indurated LE edema L>R. Psych - normal mood and affect. Skin - fading erythema to LLE. LLE dressing clean, dry and intact Objective Data Vital Signs Vital Signs: Vital Signs - 24 hr 07/26/25 20:00 07/26/25 20:00 07/26/25 20:47 Temperature 97.8 F Pulse Rate 71 92 Respiratory Rate 20 Blood Pressure 125/67 Pulse Oximetry 96 Oxygen Delivery Room Air 07/26/25 20:48 07/26/25 21:45 07/27/25 00:00 Temperature 97.8 F Pulse Rate 92 95 72 Respiratory Rate 22 H 20 Blood Pressure 125/72 Pulse Oximetry 95 96 Oxygen Delivery Autopap 07/27/25 04:00 07/27/25 08:00 07/27/25 08:00 Temperature 97.4 F L Pulse Rate 83 88 Respiratory Rate 20 18 Blood Pressure 131/68 113/52 L Pulse Oximetry 99 96 Oxygen Delivery Room Air 07/27/25 09:13 07/27/25 09:16 07/27/25 12:00 Temperature 97.9 F Pulse Rate 88 88 90 Respiratory Rate 18 Blood Pressure 127/42 L Pulse Oximetry 98 Oxygen Delivery Intake/Output Intake/Output: Intake & Output 07/24/25 07/25/25 07/26/25 07/27/25 23:59 23:59 23:59 23:59 Intake Total 1054 2009 1998 1174 Output Total 1050 2350 2050 2850 Balance 2 -261 -05 -9436 Meds/Results Medications: Active Medications Generic Name Dose Route Start Last Admin Trade Name Freq PRN Reason Stop Dose Admin Acetaminophen 650 mg 07/22/25 09:07 07/24/25 20:18 Acetaminophen 325 Mg Tablet PO 650 mg TID PRN Administration Pain Apixaban 5 mg 07/23/25 21:00 07/27/25 09:16 Apixaban 5 Mg Tablet PO 5 mg Q12HR JOSE Administration Artificial Tears 1 drop 07/22/25 09:07 Artificial Tears Ophth Soln 15 Ml Bottle EACH EYE QID PRN Dry Eye(s) Calcium Carbonate 200 mg 07/22/25 09:07 Calcium Carbonate (Tums) 500 Mg (200 Mg Elemental) PO 08/21/25 16:59 BID PRN Heartburn Cyanocobalamin 1,000 mcg 07/25/25 09:00 07/27/25 09:16 Cyanocobalamin 1,000 Mcg Tablet PO 1,000 mcg QAM JOSE Administration Dextrose 12.5 gm 07/22/25 09:03 Dextrose 50% 25 Gm/50 Ml Syringe IV PUSH PRN PRN Hypoglycemia Protocol Diclofenac Sodium 1 applic 07/23/25 22:00 07/27/25 14:01 Diclofenac Sodium 1% 100 Gm Gel (*Bkc) TOPICAL Not Given Q8HR JOSE Ferrous Sulfate 325 mg 07/22/25 09:15 07/27/25 09:16 Ferrous Sulfate [address] PO 325 mg DAILY@0800 JOSE Administration Fluticasone Propionate 2 spray 07/22/25 21:00 07/26/25 20:48 Fluticasone Propionate 0.05% Na Spr 16 Gm Btl (*Bkc) NASAL 2 spray HS JOSE Administration Furosemide 40 mg 07/25/25 12:15 07/27/25 09:16 Furosemide 40 Mg Tablet PO 40 mg DAILY JOSE Administration Furosemide 20 mg 07/26/25 14:05 07/27/25 14:01 Furosemide 20 Mg Tablet PO 20 mg 1400 JOSE Administration Glucagon 1 mg 07/22/25 09:03 Glucagon For Inj 1 Mg Vial IM PRN PRN Hypoglycemia Protocol Glucose 15 gm 07/22/25 09:03 Glucose Oral Gel 15 Gm Of Glucse In 37.5 Gm Tube PO PRN PRN Hypoglycemia Protocol Dextrose 1,000 mls @ 100 mls/hr 07/22/25 09:03 Dextrose 5% 1,000 Ml IVPB PRN PRN Hypoglycemia Protocol Ceftriaxone Sodium 2 gm/ 100 mls @ 200 mls/hr 07/24/25 09:00 07/27/25 09:17 Sodium Chloride IVPB 200 mls/hr Q24H JOSE Administration Insulin Aspart 4 - 8 units 07/22/25 12:00 07/27/25 11:57 Insulin Aspart (*Bkc) 100 Units/Ml SUB-Q Not Given TIDWM [facility] Protocol Levothyroxine Sodium 100 mcg 07/22/25 09:15 07/27/25 05:54 Levothyroxine Sodium 100 Mcg Tablet PO 100 mcg DAILY@0630 JOSE Administration Melatonin 5 mg 07/26/25 00:35 07/26/25 20:47 Melatonin 5 Mg Tablet PO 5 mg HS JOSE Administration Metoprolol Tartrate 12.5 mg 07/24/25 21:00 07/27/25 09:16 Metoprolol Tartrate 12.5 Mg Tablet PO 12.5 mg Q12HR JOSE Administration Metoprolol Tartrate 25 mg 07/24/25 21:00 07/27/25 09:13 Metoprolol Tartrate 25 Mg Tablet PO 25 mg Q12HR JOSE Administration Multi-Ingred Cream/Lotion/Oil/Oint 1 applic 07/24/25 11:30 07/27/25 11:10 Eucerin Cream 454 Gm Jar TOPICAL 1 applic DAILY JOSE Administration Pantoprazole Sodium 40 mg 07/22/25 09:20 07/27/25 09:16 Pantoprazole 40 Mg Tablet PO 40 mg Q12HR JOSE Administration Simvastatin 40 mg 07/22/25 21:00 07/26/25 20:47 Simvastatin 20 Mg Tablet PO 40 mg HS JOSE Administration Radiology Results: ITS Impressions Chest X-Ray 07/22/25 05:31 Impression: 1: No acute cardiopulmonary disease. Head CT 07/22/25 13:36 IMPRESSION: 1: No acute intracranial abnormality. Renal Ultrasound 07/22/25 14:50 IMPRESSION: 1. No hydronephrosis. 2. Limited study as above. Labs Labs: Laboratory Results - last 24 hr 07/22/25 07/26/25 07/27/25 09:03 21:44 04:08 WBC 7.9 RBC 3.88 L Hgb 11.8 L Hct 39.6 L MCV 102.1 H MCH 30.4 MCHC 29.8 L RDW 15.1 H Plt Count 260 MPV 9.9 Immature Gran % (Auto) 0.5 Neut % (Auto) 79.5 H Lymph % (Auto) 12.8 L [place] % (Auto) 4.9 Eos % (Auto) 1.9 Baso % (Auto) 0.4 Lymph # (Auto) 1.01 [place] # (Auto) 0.4 Eos # (Auto) 0.2 Baso # (Auto) 0.0 Abs Immat Gran (auto) 0.04 H Absolute Neuts (auto) 6.3 Absolute Nucleated RBC 0.000 Band Neutrophils % Not Reportable Nucleated RBC % 0.0 Platelet Estimate Adequate Anisocytosis 1+ Microcytosis 1+ Ovalocytes Occasional Schistocytes None seen Sodium 138 Potassium 5.0 Chloride 108 H Carbon Dioxide 26 Anion Gap 4 BUN 28 H Creatinine 1.05 Estim Creat Clear Calc 74 Estimated GFR > 60 Glucose 121 H POC Capillary Glucose 123 H Calcium 8.7 Phosphorus 3.4 Magnesium 2.0 Albumin 3.5 Urine Total Protein 35.0 Urine Albumin (PEP) 7.3 U Qimze-1-Xppbhgjl 2.2 U Xkjre-3-Cpuhcezj 33.0 U Beta Globulin 42.9 U Gamma Globulin 14.6 U Random M-Doe (%) Comment: Urine PEP Note Comment 07/27/25 07/27/25 07:52 11:50 WBC RBC Hgb Hct MCV MCH MCHC RDW Plt Count MPV Immature Gran % (Auto) Neut % (Auto) Lymph % (Auto) [place] % (Auto) Eos % (Auto) Baso % (Auto) Lymph # (Auto) [place] # (Auto) Eos # (Auto) Baso # (Auto) Abs Immat Gran (auto) Absolute Neuts (auto) Absolute Nucleated RBC Band Neutrophils % Nucleated RBC % Platelet Estimate Anisocytosis Microcytosis Ovalocytes Schistocytes Sodium Potassium Chloride Carbon Dioxide Anion Gap BUN Creatinine Estim Creat Clear Calc Estimated GFR Glucose POC Capillary Glucose 114 H 110 H Calcium Phosphorus Magnesium Albumin Urine Total Protein Urine Albumin (PEP) U Alooh-2-Ktrtyaxt U Vuhtx-6-Cigymajm U Beta Globulin U Gamma Globulin U Random M-Doe (%) Urine PEP Note
[2025-07-27] MEDS: SIMVASTATIN 20 MG TABLET 40 MG PO (21:44)
[2025-07-27] MEDS: MELATONIN 5 MG TABLET PO (21:44)
[2025-07-27] MEDS: FLUTICASONE PROPIONATE 0.05% NA SPR 16 GM BTL (*BKC) 2 SPRAY NASAL (21:45)
[2025-07-28] VITALS (8 sets, daily range): BP systolic 127–140; BP diastolic 59–67; PULSE 74–79; RESP 16–26; TEMP 36.4–37; O2SAT 94–100
[2025-07-28 04:35] LABS: Anion Gap 4 mmol/L (4-12); Blood Urea Nitrogen 32 mg/dL (9-20); Calcium 8.7 mg/dL (8.4-10.2); Carbon Dioxide 28 mmol/L (22-30); Chloride 105 mmol/L (98-107); Estimated CRCL calculation 69 ml/min; Estimated Glomerular Filt Rate > 60; Glucose 132 mg/dL (65-110); Potassium 4.8 mmol/L (3.4-5.0); Sodium 137 mmol/L (137-145)
[2025-07-28] MEDS: DICLOFENAC SODIUM 1% 100 GM GEL (*BKC) 1 APPLIC TOPICAL ×2 (05:54→13:23)
[2025-07-28] MEDS: LEVOTHYROXINE SODIUM 100 MCG TABLET PO (05:54)
[2025-07-28] MEDS: APIXABAN 5 MG TABLET PO (08:45)
[2025-07-28] MEDS: FUROSEMIDE 40 MG TABLET PO (08:45)
[2025-07-28] MEDS: FERROUS SULFATE 325 MG TABLET DR PO (08:45)
[2025-07-28] MEDS: CYANOCOBALAMIN 1,000 MCG TABLET 1000 MCG PO (08:45)
[2025-07-28] MEDS: METOPROLOL TARTRATE 25 MG TABLET PO (08:45)
[2025-07-28] MEDS: cefTRIAXone 2 GM in SODIUM CHLORIDE 0.9% IV 100 ML 200 ML IVPB (08:46)
[2025-07-28] MEDS: PANTOPRAZOLE 40 MG TABLET PO (08:46)
[2025-07-28] MEDS: METOPROLOL TARTRATE 12.5 MG TABLET PO (08:46)
[2025-07-28] MEDS: EUCERIN CREAM 454 GM JAR 1 APPLIC TOPICAL (08:47)
[2025-07-28] MEDS: FUROSEMIDE 20 MG TABLET PO (13:22)
--- NOTE | 2025-07-28 14:22 | P.PNINF_ITS ---
Progress Note: A&P Assessment and Plan (1) Bacteremia: Code(s): R78.81 - Bacteremia Status: Acute (2) Bacteremia due to group B Streptococcus: Code(s): R78.81 - Bacteremia; B95.1 - Streptococcus, group B, as the cause of diseases classified elsewhere Status: Acute (3) Sepsis: Code(s): A41.9 - Sepsis, unspecified organism Status: Acute (4) Cellulitis of left leg: Code(s): L03.116 - Cellulitis of left lower limb Status: Acute Plan # Group B Streptococcus bacteremia on presentation. Possibly secondary to left leg cellulitis. Repeat blood cultures negative to date. # Acute sepsis secondary to the above, resolved. # Left lower extremity cellulitis in the setting of what appears to be chronic stasis dermatitis and superficial wound formation. Plan: -- last day of ceftriaxone today. To begin oral amoxicillin 1 g q.8 hours tomorrow and to continue through 08/03/2025. -- continue local wound care to left lower extremity. Patient was seen via video telehealth consultation with the assistance of staff. Chart, data, and patient independently reviewed. Patient was located at [facility] while I was located in my [place] office. Received verbal consent from patient. Subjective Date/time seen: 07/28/25 14:22 Interval history: 07/28/2025: Afebrile and continues to feel better. No leg pain. Blood cultures 07/24: negative at 48 hours. Review of Systems Review of Systems: He denies left leg pain. All systems reviewed & are unremarkable except as noted in HPI and below Exam Narrative: Awake, alert, interactive, and appropriate. No distress. He is obese. Normocephalic and without conjunctivitis. Normal respiratory effort. Abdomen protuberant but not markedly distended. Bilateral lower extremities with distal hyperpigmentation. Left leg with clean dressing. Photos of left leg reviewed: Erythema versus hyperpigmentation with scaling and shallow wound development. Objective Data Vital Signs Vital Signs: Vital Signs - 24 hr 07/27/25 16:00 07/27/25 20:00 07/27/25 20:20 Temperature 98.1 F Pulse Rate 82 87 Respiratory Rate 18 28 H Blood Pressure 119/65 Pulse Oximetry 97 96 Oxygen Delivery CPAP Autopap 07/27/25 21:03 07/27/25 21:44 07/27/25 21:44 Temperature 97.7 F Pulse Rate 88 91 91 Respiratory Rate 18 Blood Pressure 143/67 H Pulse Oximetry 98 Oxygen Delivery 07/28/25 02:00 07/28/25 04:00 07/28/25 08:00 Temperature 97.5 F L 98.6 F Pulse Rate 74 79 Respiratory Rate 26 H 16 18 Blood Pressure 132/67 129/59 L Pulse Oximetry 94 97 Oxygen Delivery Autopap 07/28/25 08:45 07/28/25 08:46 07/28/25 08:46 Temperature Pulse Rate 74 74 74 Respiratory Rate 16 Blood Pressure Pulse Oximetry 94 Oxygen Delivery Room Air 07/28/25 09:46 07/28/25 12:00 Temperature 98.6 F Pulse Rate 75 Respiratory Rate 18 Blood Pressure 127/62 Pulse Oximetry 97 100 Oxygen Delivery Room Air Intake/Output Intake/Output: Intake & Output 07/25/25 07/26/25 07/27/25 07/28/25 23:59 23:59 23:59 23:59 Intake Total 2009 1998 2046 680 Output Total 2349 2049 5390 900 Balance - -220 Meds/Results Medications: Active Medications Generic Name Dose Route Start Last Admin Trade Name Freq PRN Reason Stop Dose Admin Acetaminophen 650 mg 07/22/25 09:07 07/24/25 20:18 Acetaminophen 325 Mg Tablet PO 650 mg TID PRN Administration Pain Amoxicillin 1,000 mg 07/29/25 06:00 Amoxicillin 500 Mg Capsule PO 08/03/25 22:01 Q8HR JOSE Apixaban 5 mg 07/23/25 21:00 07/28/25 08:45 Apixaban 5 Mg Tablet PO 5 mg Q12HR JOSE Administration Artificial Tears 1 drop 07/22/25 09:07 Artificial Tears Ophth Soln 15 Ml Bottle EACH EYE QID PRN Dry Eye(s) Calcium Carbonate 200 mg 07/22/25 09:07 Calcium Carbonate (Tums) 500 Mg (200 Mg Elemental) PO 08/21/25 16:59 BID PRN Heartburn Cyanocobalamin 1,000 mcg 07/25/25 09:00 07/28/25 08:45 Cyanocobalamin 1,000 Mcg Tablet PO 1,000 mcg QAM JOSE Administration Dextrose 12.5 gm 07/22/25 09:03 Dextrose 50% 25 Gm/50 Ml Syringe IV PUSH PRN PRN Hypoglycemia Protocol Diclofenac Sodium 1 applic 07/23/25 22:00 07/28/25 13:23 Diclofenac Sodium 1% 100 Gm Gel (*Bkc) TOPICAL 1 applic Q8HR JOSE Administration Ferrous Sulfate 325 mg 07/22/25 09:15 07/28/25 08:45 Ferrous Sulfate [address] PO 325 mg DAILY@0800 JOSE Administration Fluticasone Propionate 2 spray 07/22/25 21:00 07/27/25 21:45 Fluticasone Propionate 0.05% Na Spr 16 Gm Btl (*Bkc) NASAL 2 spray HS JOSE Administration Furosemide 40 mg 07/25/25 12:15 07/28/25 08:45 Furosemide 40 Mg Tablet PO 40 mg DAILY JOSE Administration Furosemide 20 mg 07/26/25 14:05 07/28/25 13:22 Furosemide 20 Mg Tablet PO 20 mg 1400 JOSE Administration Glucagon 1 mg 07/22/25 09:03 Glucagon For Inj 1 Mg Vial IM PRN PRN Hypoglycemia Protocol Glucose 15 gm 07/22/25 09:03 Glucose Oral Gel 15 Gm Of Glucse In 37.5 Gm Tube PO PRN PRN Hypoglycemia Protocol Dextrose 1,000 mls @ 100 mls/hr 07/22/25 09:03 Dextrose 5% 1,000 Ml IVPB PRN PRN Hypoglycemia Protocol Insulin Aspart 4 - 8 units 07/22/25 12:00 07/28/25 11:46 Insulin Aspart (*Bkc) 100 Units/Ml SUB-Q Not Given [facility] Protocol Levothyroxine Sodium 100 mcg 07/22/25 09:15 07/28/25 05:54 Levothyroxine Sodium 100 Mcg Tablet PO 100 mcg DAILY@0630 JOSE Administration Melatonin 5 mg 07/26/25 00:35 07/27/25 21:44 Melatonin 5 Mg Tablet PO 5 mg HS JOSE Administration Metoprolol Tartrate 12.5 mg 07/24/25 21:00 07/28/25 08:46 Metoprolol Tartrate 12.5 Mg Tablet PO 12.5 mg Q12HR JOSE Administration Metoprolol Tartrate 25 mg 07/24/25 21:00 07/28/25 08:45 Metoprolol Tartrate 25 Mg Tablet PO 25 mg Q12HR JOSE Administration Multi-Ingred Cream/Lotion/Oil/Oint 1 applic 07/24/25 11:30 07/28/25 08:47 Eucerin Cream 454 Gm Jar TOPICAL 1 applic DAILY JOSE Administration Pantoprazole Sodium 40 mg 07/22/25 09:20 07/28/25 08:46 Pantoprazole 40 Mg Tablet PO 40 mg Q12HR JOSE Administration Simvastatin 40 mg 07/22/25 21:00 07/27/25 21:44 Simvastatin 20 Mg Tablet PO 40 mg HS JOSE Administration Radiology Results: ITS Impressions Chest X-Ray 07/22/25 05:31 Impression: 1: No acute cardiopulmonary disease. Head CT 07/22/25 13:36 IMPRESSION: 1: No acute intracranial abnormality. Renal Ultrasound 07/22/25 14:50 IMPRESSION: 1. No hydronephrosis. 2. Limited study as above. Labs Labs: Laboratory Results - last 24 hr 07/22/25 07/27/25 07/27/25 09:03 16:49 21:12 Sodium Potassium Chloride Carbon Dioxide Anion Gap BUN Creatinine Estim Creat Clear Calc Estimated GFR Glucose POC Capillary Glucose 145 H 107 H Calcium Urine Total Protein 35.0 Urine Albumin (PEP) 7.3 U Jpvcp-5-Stbzembv 2.2 U Nzcxd-3-Kacpscjr 33.0 U Beta Globulin 42.9 U Gamma Globulin 14.6 U Random M-Doe (%) Comment: Urine PEP Note Comment 07/28/25 07/28/25 07/28/25 04:02 07:55 11:42 Sodium 137 Potassium 4.8 Chloride 105 Carbon Dioxide 28 Anion Gap 4 BUN 32 H Creatinine 1.12 Estim Creat Clear Calc 69 Estimated GFR > 60 Glucose 132 H POC Capillary Glucose 115 H 133 H Calcium 8.7 Urine Total Protein Urine Albumin (PEP) U Qqqpg-9-Xqbizgpw U Pypyr-1-Esafxfde U Beta Globulin U Gamma Globulin U Random M-Doe (%) Urine PEP Note
--- NOTE | 2025-07-28 16:11 | PM.DS ---
DS: Admitting Diagnosis Discharge Date 07/28/2025 Admitting Diagnosis Sepsis DS: Discharge Diagnosis Discharge Diagnosis (1) Hypotension: Code(s): I95.9 - Hypotension, unspecified Status: Acute (2) Atrial fibrillation: Qualifiers: Atrial fibrillation type: unspecified Qualified Code(s): I48.91 - Unspecified atrial fibrillation Code(s): I48.91 - Unspecified atrial fibrillation Status: Acute (3) FRANCISCO JAVIER (acute kidney injury): Code(s): N17.9 - Acute kidney failure, unspecified Status: Acute (4) Sepsis: Code(s): A41.9 - Sepsis, unspecified organism Status: Acute (5) Bacteremia: Code(s): R78.81 - Bacteremia Status: Acute (6) Cellulitis of left leg: Code(s): L03.116 - Cellulitis of left lower limb Status: Acute DS: Summary Hospital Course Hospital Course: 75-year-old male with PMH JERMAN, AFib on Eliquis, gvs-dthkbrd-uxutnuquc diabetes mellitus, hypertension presents from half-way facility with reports of low oxygen saturation. No hypoxia noted on presentation but patent had sepsis present on admission with leukocytosis tachycardia tachypnea and hypotension felt to be due to left lower extremity cellulitis. Blood culture 1 aerobic bottle growing strep agalactiae. Initially on vancomycin Rocephin which have been switched to amoxicillin 1000 mg q.8 hours to completed a ten-day course through 08/03/2025 as repeat blood cultures have been negative. Assisted by infectious disease consultants. Sepsis has resolved, patient is discharged in stable condition on 07/28/2025 to [facility] where [facility] a [facility]. To continue wound care. Also presented with AFib with RVR which is now well controlled as is metoprolol been restarted. Amlodipine and lisinopril have been held due to the recent hypotension into be restarted as appropriate only after review with on going clinical care. Presented with FRANCISCO JAVIER with serum creatinine 1.7. Improved concurrently with improvement of sepsis. Also noted to have confusion thought to be due to sepsis. This has resolved. All the patient's questions and concerns were answered to his satisfaction. Patient was full code during the admission. Time Spent with Patient Time attestation: Total time spent providing and/or coordinating discharge services: Time spent: Greater than 30 minutes Exam Const: General: comfortable and no acute distress Eyes: Pupils: Equal, round and reactive pupils present Neck: Neck: supple Resp: Effort & Inspection: normal respiratory effort Auscultation: clear to auscultation bilaterally Cardio: Rate: regular rate Rhythm: abnormal rhythm GI: GI Palp: Yes Soft to palpation and No Tenderness to palpation present (GI) Neuro: Motor exam (neuro): 5/5 motor strength present throughout Extrem: Other: Blanching erythema left lower extremity improved. Serous drainage, no tenderness to palpation or overt warmth or purulent drainage. DS: Data Data Completed and Pending Labs on day of discharge: Labs from last 24 hours 07/28/25 07/28/25 07/28/25 16:03 11:42 07:55 Sodium Potassium Chloride Carbon Dioxide Anion Gap BUN Creatinine Estim Creat Clear Calc Estimated GFR Glucose POC Capillary Glucose 133 H 115 H Calcium SARS-CoV-2 RNA (RT-PCR) Pending 07/28/25 07/27/25 07/27/25 04:02 21:12 16:49 Sodium 137 Potassium 4.8 Chloride 105 Carbon Dioxide 28 Anion Gap 4 BUN 32 H Creatinine 1.12 Estim Creat Clear Calc 69 Estimated GFR > 60 Glucose 132 H POC Capillary Glucose 107 H 145 H Calcium 8.7 SARS-CoV-2 RNA (RT-PCR) Preliminary micro results at discharge 07/24/25 08:20 Blood Culture - Preliminary Blood 07/24/25 08:24 Blood Culture - Preliminary Blood Discharge Plan Discharge Attending physician on discharge: Wendi Green Consulting providers: Humberto Lechuga Discharging Clinician: Wendi Green Patient Disposition: SNF Activity: march shower Diet: diabetic Discharge Instructions: CLEANSE WOUND TO LEFT LATERAL ANKLE WOUND AND APPLY SILVER ALGINATE, COVER WITH ABD AND WRAP WITH KERLEX DAILY AND PRN. f/u with wound care as indicated. Patient Instructions: Apixaban (By mouth) Patient Language: Upper Sorbian Stand Alone Forms: General Discharge Information Follow-up/Referrals: Leobardo Myles MD [Primary Care Provider, [facility]] Discharge Medications: New cyanocobalamin (vitamin B-12) [Vitamin B-12] 1,000 mcg Tablet 1,000 mcg PO QAM Qty: 30 0RF amoxicillin 500 mg Capsule 1,000 mg PO Q8HR 6 Days Qty: 36 0RF Rx Instructions: start 07/29/25, continue through 08/03/25 Continued fluticasone propionate 50 mcg/actuation spray,suspension 100 g intranasal DAILY Antacid (calcium carbonate) 500 mg 500 mg PO BID acetaminophen 325 mg Tablet 650 mg PO TID PRN (Reason: Pain) ergocalciferol (vitamin D2) 1,250 mcg (50,000 unit) Capsule 1,250 mcg PO WEEKLY Rx Instructions: weekly on Mondays simvastatin 40 mg tablet 40 mg PO HS loperamide [Imodium A-D] 2 mg Tablet 2 mg PO Q4-6H PRN (Reason: Loose Stool) Rx Instructions: take 1-2 tabs for loose stool Eliquis 5 mg Tablet 5 mg PO Q12HR Qty: 180 0RF metoprolol tartrate 37.5 mg tablet 37.5 mg PO BID Qty: 180 0RF Artificial Tears(glycerin-peg) 1-0.3 % drops 1 drp EACH EYE QID PRN (Reason: dry eye(s)) Qty: 30 0RF ferrous sulfate 325 mg (65 mg iron) tablet,delayed release (DR/EC) 325 mg PO DAILY Qty: 90 1RF omeprazole 40 mg capsule,delayed release(DR/EC) 40 mg PO DAILY Qty: 90 1RF glipizide 2.5 mg tablet extended release 24hr 2.5 mg PO DAILY Qty: 90 1RF furosemide 40 mg tablet See Rx Instructions .ROUTE .COMPLEX Qty: 30 4RF Dose Instruction: TAKE 1 TABLET BY MOUTH EVERY MORNING Rx Instructions: TAKE 1 TABLET BY MOUTH EVERY MORNING levothyroxine 100 mcg tablet See Rx Instructions .ROUTE .COMPLEX Qty: 90 1RF Dose Instruction: TAKE 1 TABLET BY MOUTH DAILY Rx Instructions: TAKE 1 TABLET BY MOUTH DAILY hydrocodone-acetaminophen 7.5-325 mg tablet 1 tablet PO Q4H PRN (Reason: pain) Qty: 120 0RF Held amlodipine 5 mg tablet 5 mg PO DAILY Hold Instructions: Review blood pressures with physician before restarting lisinopril 20 mg tablet 40 mg PO DAILY Hold Instructions: Review blood pressures with physician before restarting Discontinued simethicone 40 mg Tablet,Chewable 40 mg PO BID doxycycline hyclate 100 mg Tablet 100 mg PO Q12HR Qty: 3 0RF Date of admission: 07/22/25 03:23 Primary Care Provider: Leobardo Myles Admitting Provider: Jayro Guerra Attending physician on admission: Jayro Guerra Condition: Improved Hospitalist MIPS Heart Failure (Exclusion) Patient has history of Heart Transplant or Left Ventricular Assistive Device?: No IF YES, STOP HERE Heart Failure (Qualifier) Patient has current or prior documentation of LVEF less than or equal to 40%, or mod/servere depressed LVSF?: No IF NO, STOP HERE
[2025-07-28 16:48] LABS: SARS-CoV-2 RNA PCR Negative (Negative)
== END 2025-07-28 18:05 | DRG 872 ==
LOC: ANHED 03:36 → ANHIMU 04:20 → ANH2MED 07-24 17:37
PROVIDERS: Internal Medicine; Admitting Provider General Practice; Emergency Provider Emergency Medicine; PCP Family Medicine; Visit Provider General Practice
DX: A41.9 Sepsis, unspecified organism (principal); L03.116 Cellulitis of left lower limb; N17.9 Acute kidney failure, unspecified; Z68.43 Body mass index [BMI] 50.0-59.9, adult; R09.02 Hypoxemia; E86.0 Dehydration; I48.91 Unspecified atrial fibrillation; G47.33 Obstructive sleep apnea (adult) (pediatric); E11.9 Type 2 diabetes mellitus without complications; I10 Essential (primary) hypertension; E03.9 Hypothyroidism, unspecified; K21.9 Gastro-esophageal reflux disease without esophagitis; E66.01 Morbid (severe) obesity due to excess calories; I87.2 Venous insufficiency (chronic) (peripheral); Z20.822 Contact with and (suspected) exposure to COVID-19; Z79.01 Long term (current) use of anticoagulants; Z96.653 Presence of artificial knee joint, bilateral; Z90.49 Acquired absence of other specified parts of digestive tract
CPT/HCPCS: 36415; 36600; 70450; 71045; 76770; 80048; 80053; 80069; 81001; 82306; 82550; 82565; 82570; 82607; 82746; 82805; 82948; 83036; 83605; 83735; 83880; 84145; 84156; 84166; 84300; 84443; 84484; 85018; 85025; 85610; 85730; 85999; 86140; 86160; 86162; 87040; 87635; 87637; 93005; 96361; 96365; 97110; 97116; 97161; 97165; 97530; 97535; 99285; A9270; C8929; J0696; J3373; J3420; J7030; Q9957

== ENCOUNTER 2025-08-16 02:59 | Emergency (ER) | payer OTHER, SELFPAY ==
--- OUTSIDE RECORDS SUMMARY | 2010-03-10 05:00 | XMS_ITS | Continuity of Care Document ---
Author Organization [facility] Address [address] [place] [address] Phone Care Team Providers Care Talent Engineer Name Role Phone Avalos OD, Harman Unavailable Unavailable Procedures Procedure Date Eye Exam & Treatment Dilated Retinal Exam W Interpretation Ap Refraction Eye Exam & Treatment Refraction Progressive Lens, Polycarb Frames Deluxe Anti-reflective Coating Tint Photochromatic, Polycarb 9 Tax - Medical Eye Exam Established Pt Refraction Office/outpatient Visit, Est Eye Exam & Treatment Advance Directives Directive Yes / No Effective Date File Name No Information Encounters Encounter Description Practice Location Reason(s) For Visit Diagnoses Date Provider Providers Copied on Encounter [facility], [address], [place], [place], [id number], [place] tel:[phone] [facility] No Information 0 Avalos OD Harman. [address] , [address], [place], [address], [place]. tel:[phone] Referring Provider: Nain Salter MD B, [address], [place], [address]. tel:[phone] [facility], [address], [place], [place], [id number], [place] tel:[phone] [facility] No Information Apr-1 6-200 9 Avalos OD Harman. [address] , [address], [place], [address], [place]. tel:[phone] [facility], [address], [place], [place], [address], [place] tel:[phone] [facility] No Information Apr-1 6-200 9 [facility] . [address], [address], [place], [place], [address], [place]. tel:[phone] Referring Provider: Harman Avalos OD A, [address], [place], [address]. tel:[phone] sulting Provider: Shilpa Rojas, [address] [place], [address]. tel:[phone] [facility], [address], [place], [place], [id number], [place] tel:[phone] [facility] No Information Apr-1 0-200 8 Aavlos OD Harman. [address], [address], [place], [address], [place]. tel:[phone] Referring Provider: Nain Salter MD B, [address], [place], [address]. tel:[phone] Office/outpat ient Visit, Est [facility], [id number] [place] [address] [address], [place], [place], [address], [place] tel:[phone] [facility] No Information Oct-0 4-200 7 Avalos OD Harman. [address], [address], [place], [address], [place]. tel:[phone] [facility], [address], [place], [place], [address], [place] tel:[phone] [facility] No Information Apr-0 5-200 7 Avalos OD Harman. [address] , [address], [place], [address], [place]. tel:[phone] Family History Family Member Type Diagnosis Age At Onset No Information Payers Payer name Insurance type Covered alliance party ID Authoriza tion(s) Medicare [facility] [id number] [id number] Social History Type Description Quantity Date Captured Comments Sex Male Smoking Status No Information Chief Complaint And Reason For Visit No Information Reason For Referral Reason For Referral No Information History Of Present Illness Encounter Date Complaint History Of Prese nt Illness No Information Functional Status Date Functional Assessmen t No Information Instructions Date Instruction Additional Infor mation No Information Assessments Type Assessment Date No Information Patient Care Teams Name Effective Dates (start - stop) Status Members No Information
[2025-08-16] VITALS (9 sets, daily range): BP systolic 108–142; BP diastolic 65–77; PULSE 82–109; RESP 20–26; TEMP 37.6; O2SAT 95–99
--- NOTE | ~2025-08-16 | XR_ITS ---
Examination: XR chest 1V portable Clinical History: cough Comparison: Chest x-ray 07/22/2025 Technique: Portable AP Findings: Cardiomegaly. Lungs clear. No acute bony abnormality. IMPRESSION: 1. No acute cardiopulmonary findings given portable technique. Reviewed, dictated and finalized at location R.
--- NOTE | 2025-08-16 03:10 | ECG_ITS ---
Test Date: 2025-08-16 03:31:31 Measurements Intervals [place] Rate: 91 P: 0 WV: 0 QRS: -14 QRSD: 98 T: 9 QT: 365 QTc: 449 Interpretive Statements ATRIAL FIBRILLATION LOW QRS VOLTAGE IN PRECORDIAL LEADS [QRS DEFLECTION < 1.0 mV IN CHEST LEADS] Compared to ECG 07/22/2025 10:36:52 No significant changes Electronically Signed On 08-16-2025 14:21:41 CDT by Phillip Castaneda M.D.
--- OUTSIDE RECORDS SUMMARY | 2025-08-16 03:23 | XMS_ITS | Encounter Summary ---
Author Organization [facility] Address [address] [place] [address] Care Team Providers Care Wastewater Treatment Supervisor Name Role Phone Nain Salter MD Primary Care Provider [phone] Nain Salter MD Primary Care Provider [phone] Weston Simental DO Primary Care Provider [phone] Fredy Cruz MD Unavailable [phone] Dominik Ulrich MD Unavailable [phone] Leobardo Myles MD Primary Care Provider [phone] Encounter Details Date Type Department Care Team (Late st Contact Info) Description 12/31/2016 Orders Only [facility] ProviderJorge MD [address] [place] [id number] Social History Tobacco Use Types Packs/Day Years Used Date Smoking Tobacco: Never Alcohol Use Standard Drinks/Week Comments No 0 (1 standard drink = 0.6 oz pur e alcohol) Sex and Gender Information Value Date Recorded Sex Assigned at Not on file 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 10/20/2020 10/22/2020 02/17/2021 3:05 AM C DT documented as of this encounter Care Teams Wastewater Treatment Supervisor Relationship Specialty Start Date End Date Nain [...]
[2025-08-16] MEDS: ALBUTEROL SULFATE NEB 2.5 MG/3 ML INH INHALATION (03:24)
--- OUTSIDE RECORDS SUMMARY | 2025-08-16 03:24 | XMS_ITS | Clinical Summary ---
Author Organization [facility] Address [address] [address] Phone Care Team Providers Care Roll Scale Worker Name Role Phone Unavailable Primary Care Provider [...]
--- OUTSIDE RECORDS SUMMARY | 2025-08-16 03:24 | XMS_ITS | Encounter Summary ---
Author Organization [facility] Address [address] [place] [address] Care Team Providers Care Soft Work Wrapper Examiner Name Role Phone Nain Salter MD Primary Care Provider [phone] Nain Salter MD Primary Care Provider [phone] Nain Salter MD Primary Care Provider [phone] Weston Simental DO Primary Care Provider [phone] Fredy Cruz MD Unavailable [phone] Dominik Ulrich MD Unavailable [phone] Leobardo Myles MD Primary Care Provider [phone] Encounter Details Date Type Department Care Team (Late st Contact Info) Description 12/25/2016 Orders Only [facility] Provider, MD Jorge [address] [place] [id number] Social History Tobacco Use Types Packs/Day Years Used Date Smoking Tobacco: Never Alcohol Use Standard Drinks/Week Comments No 0 (1 standard drink = 0.6 oz pur e alcohol) Sex and Gender Information Value Date Recorded Sex Assigned at Not on file 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 10/20/2020 10/22/2020 02/17/2021 3:05 AM C DT documented as of this encounter Care Teams Soft Work Wrapper Examiner Relationship Specialty Start Date End Date Nain [...]
--- OUTSIDE RECORDS SUMMARY | 2025-08-16 03:24 | XMS_ITS | Encounter Summary ---
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 10/20/2020 10/22/2020 02/17/2021 3:05 AM C DT documented as of this encounter Care Teams Nitrating Acid Mixer Relationship Specialty Start Date End Date Weston Simental DO PCP - General 04/07/19 01/09/22 Leobardo Myles MD PCP - General Family Medicine 01/10/22 Fredy Cruz MD Surgeon Orthopedic Surgery 04/14/19 Dominik Ulrich MD Surgeon General Surgery 10/23/19 documented as of this encounter
--- OUTSIDE RECORDS SUMMARY | 2025-08-16 03:24 | XMS_ITS | Encounter Summary ---
Author Organization [facility] Address [address] [place] [address] Care Team Providers Care Shelter Director Name Role Phone Nain Salter MD Primary Care Provider [phone] Nain Salter MD Primary Care Provider [phone] Weston Simental DO Primary Care Provider [phone] Fredy Cruz MD Unavailable [phone] Dominik Ulrich MD Unavailable [phone] Leobardo Myles MD Primary Care Provider [phone] Encounter Details Date Type Department Care Team (Late st Contact Info) Description 12/27/2016 Orders Only [facility] ProviderJorge MD [address] [place] [address] Social History Tobacco Use Types Packs/Day Years Used Date Smoking Tobacco: Never Alcohol Use Standard Drinks/Week Comments No 0 (1 standard drink = 0.6 oz pur e alcohol) Sex and Gender Information Value Date Recorded Sex Assigned at Not on file 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 10/20/2020 10/22/2020 02/17/2021 3:05 AM C DT documented as of this encounter Care Teams Shelter Director Relationship Specialty Start Date End Date Nain [...]
--- OUTSIDE RECORDS SUMMARY | 2025-08-16 03:24 | XMS_ITS | Clinical Summary ---
Author Organization [facility] [address] Address [address] [place] [address] Care Team Providers Care Cable Tower Operator Name Role Phone Fredy Cruz MD Unavailable [phone] Dominik Ulrich MD Unavailable [phone] Leobardo Myles MD Primary Care Provider Allergies Active Allergy Reactions Criticality Noted Date [...] 01/10/2022 Assessment & Plan (01/31/2022 1:01 PM COMPUTER PROGRAMMING MANAGER): Assessment/plan: No evidence of flow-limiting stenosis and left lower extremity. This is likely multifactorial due to chronic edema and diabetes. Stressed the importance of continue local wound care and compressive therapy. Can follow-up p.r.n.. Assessment & Plan (01/10/2022 10:40 AM COMPUTER PROGRAMMING MANAGER): Assessment/plan: Limited arterial duplex the left lower [...] 09/24/2019 Assessment & Plan (01/31/2022 1:01 PM COMPUTER PROGRAMMING MANAGER): Assessment/plan: Wound without any surrounding erythema or [...] insulin Assessment & Plan (01/10/2022 10:41 AM COMPUTER PROGRAMMING MANAGER): Assessment/plan: Strict glucose control Hypercholesterolemia 12/25/2016 Overview (03/01/2017): Hypercholesteremia Assessment & Plan (01/10/2022 10:40 AM COMPUTER PROGRAMMING MANAGER): Assessment/plan: Statin Body mass index 40+ - severely obese 12/25/2016 Overview (03/01/2017): Morbid obesity with BMI of 50.0-59.9, adult Dyspnea on exertion 12/25/2016 Overview (03/01/2017): HERMAN (dyspnea on exertion) Essential hypertension 12/25/2016 Overview (03/01/2017): Essential hypertension Assessment & Plan (01/31/2022 1:01 PM COMPUTER PROGRAMMING MANAGER): Amlodipine Arthralgia of hip 04/01/2013 Fall Acute blood loss anemia Traumatic hematoma of right knee Cellulitis of lower extremity Assessment & Plan (12/18/2022 12:55 PM COMPUTER PROGRAMMING MANAGER): - Pt's wounds appear much improved from prior visits. Advised he should continue close follow-up with program manager at rehab for ongoing management. - No s/s of super infection of his LE at this time, no indication for additional abx. - Discussed with patient the rational for treatment, culture results, risk of recurrent infection, signs/symptoms of recurrent infection, and to contact ID clinic with any questions or concerns. 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 Not on file Not on file Not on file Obstetrics History Last Filed Vital Signs Vital Sign Reading Time Taken Comments Blood Pressure 98/60 12/13/2022 9:51 AM COMPUTER PROGRAMMING MANAGER Pulse 59 12/13/2022 9:51 AM COMPUTER PROGRAMMING MANAGER Temperature 36.4 C (97.5 F) 12/13/2022 9:51 AM COMPUTER PROGRAMMING MANAGER Respiratory Rate 20 05/09/2021 7:00 PM CDT Oxygen Saturation 92% 05/09/2021 7:00 PM CDT Inhaled Oxygen Concentration - - Weight 133.8 kg (295 lb) 12/13/2022 9:51 AM COMPUTER PROGRAMMING MANAGER Height 165 cm (5' 4.96) 12/13/2022 9:51 AM COMPUTER PROGRAMMING MANAGER Body Mass Index 49.15 12/13/2022 9:51 AM COMPUTER PROGRAMMING MANAGER Plan of Treatment Health Maintenance Due Date [...] Screening-Sigmoidoscopy Discontinued Medical Devices Implanted Type Area Cable Installation Manager Device Identifier Shelf Expiration Date Model / Serial / Lot Other - See Comments Other - see comments Right: Arm Other - See Comments Other - see comments N/A: Hip [employer] [id number] 54mm Limit Hole Color Coded Hip F Offset Hemisphere Shell - [id number] - [id number] Implanted:Qty: 1 on 05/04/2021 by Aureliano Adame MD at [facility] Other - see comments Left: Hip [employer] [id number] 01/02/2031 [id number] / [id number] / [id number] Description:Acetabular shell [employer] [id number] Echo Bi-Metric 12mm 140mm Noncollar Reduce Proximal Profile Press - [id number] - [id number] Implanted:Qty: 1 on 05/04/2021 by Aureliano Adame MD at [facility] Other - see comments Left: Hip [employer] [id number] 03/28/2031 [id number] / [id number] / [id number] Description:Femoral Stem [employer] [id number] G7 32mm Lumen Hip F Liner Acetabular Longevity Sterile Latex Free - [id number] - [id number] Implanted:Qty: 1 on 05/04/2021 by Aureliano Adame MD at [facility] Other - see comments Left: Hip [employer] [id number] 10/24/2024 [id number] / [id number] / [id number] Description:Liner [employer] [id number] 32mm Modular Hip +6mm Head Femoral Biolox Delta - [id number] - [id number] Implanted:Qty: 1 on 05/04/2021 by Aureliano Adame MD at [facility] Other - see comments Left: Hip [employer] [id number] 11/11/2028 [id number] / [id number] / [id number] Description:Head [employer] [id number] Trilogy 6.5mm 30mm Self Tap Acetabular Cortical Screw Bone - [id number] - [id number] Implanted:Qty: 1 on 05/04/2021 by Aureliano Adame MD at [facility] Screw Left: Hip [employer] [id number] 02/08/2031 [id number] / [id number] / [id number] [employer]/C R Bard [id number] Ventralight St Sepra 4.5in Uncoated Monofilament Lightweight - [id number] Implanted:Qty: 1 on 10/20/2019 by Dominik Ulrich MD at [facility] N/A: Abdomen [employer] 06/21/2021 [id number] / / [id number] Procedures Procedure Name Priority Date/Time Associated Diagnosis [...] ORDERABLES F inal Result Performing Organization Address [facility] Co de Phone Number [address] Department [place] [address] * Hemoglobin A1c (03/02/2021 9:39 AM CDT) Hemoglobin A1c % 5.5 4.0 - 5.6 % [facility] Comment: ADA 2016 GUIDELINES: Initial Diagnostic Criteria HbA1c Result: Interpretation: <5.7% Normal 5.7-6.4% At risk for diabetes mellitus >=6.5% Consistent with diabetes mellitus Diabetes monitoring Target value (ADA Recommended) <7% 03/02/2021 9:39 AM CDT 03/02/2021 9:44 AM CDT Narrative Resulting Agency Comment CLI us Aureliano Adame MD LAB BLOOD ORDERABLES F inal Result Performing Organization Address [facility] de Phone Number [address] [phone] * Lipid panel (09/22/2020 5:09 AM CDT) [...] 2018. Chol/HDL ratio 2 HAIMJOSE Romo YVONNE ([place]) Blood specimen (specimen) 09/22/2020 5:09 AM CDT 09/22/2020 5:44 AM CDT us Lino Robertson MD LAB BLOOD ORDERABLES Final Resu lt VICKI YVONNE ([place]) [address] [facility] Department [place] [address] * Occult blood, fecal non neoplasm screening (07/13/2013 9:40 AM CDT) Stool Occult Blood POSITIVE NEGATIVE 07/13/2013 12:19 PM CDT [facility] HISTORICAL RESULTS 07/13/2013 9:40 AM CDT 07/13/2013 11:57 AM CDT Narrative [facility] HISTORICAL RESULTS - 07/13/2013 12:19 PM CDT Collected By PLConi 847 us Cindy MAS LAB BODY FLUIDS AND STOOLS OR DERABLES Final Result [facility] HISTORICAL RESULTS from Last 3 Months or Most Recently Relevant to Health Maintenance Insurance [facility] Room [address] MEDICARE ADVANTAGE IDPA Member Subscriber Plan / Payer (Ef fective 2021-Present) Name:Miles Pinto Relation to Subscriber:Self Name:Miles Pinto Payer ID:[id number] Group ID:Not on file Type:MEDICAID [place] Address: [place] [id number] IDPA Member Subscriber Plan / Payer (Ef fective 2019-Present) Name:Miles Pinto Relation to Subscriber:Self Name:Miles Pinto Payer ID:[id number] Group ID:Not on file Type:[place]ICAID [place] Address: [place] [id number] UHC MEDICARE ADVANTAGE [facility] Room [address] MDCR HMO REF IDPA [facility] MEDICARE ADVANTAGE Advance Directives For more information, please contact: [phone] Documents on File Type Date Recorded Patient Electronic Calibration Technician Expl anation ADVANCE DIRECTIVE 07/04/2013 12:00 AM ZO R OF SANITARY AIDE FINANCIAL/MEDICAL * Full Code (Latest Code Status [...] 6:21 PM 04/14/2019 6:01 PM Care Teams Cable Tower Operator Relationship Specialty Start Date End Date Leobardo Myles MD PCP - General Family Medicine 01/10/22 Fredy Cruz MD Surgeon Orthopedic Surgery 04/14/19 Dominik Ulrich MD Surgeon General Surgery 10/23/19
[2025-08-16 03:39] LABS: Hematocrit 44.8 % (42.0-52.0); Hemoglobin 13.2 g/dL (14.0-18.0); Immature Granulocyte Percent A 0.3 % (0-0.5); Lymphocytes Absolute Auto 0.92 K/mm3 (0.9-3.2); Mean Corpuscular HGB Conc 29.5 g/dl (32-36); Mean Corpuscular Hemoglobin 30.1 pg (26-34); Mean Corpuscular Volume 102.3 fl (80-100); Nucleated Red Blood Cells Absolute Auto 0.000 K/mm3 (0.0-0.012); Nucleated Red Blood Cells Perc 0.0 % (0.0-0.2); Platelet Count Result 219 k/mm3 (150-375); Red Blood Count 4.38 M/mm3 (4.6-6.20); White Blood Count 6.1 K/mm3 (4.5-10.0)
[2025-08-16 04:11] LABS: Alanine Aminotransferase 19 U/L (6-50); Albumin Level 4.0 g/dL (3.5-5.1); Alkaline Phosphatase 97 U/L (38-126); Anion Gap 6 mmol/L (4-12); Aspartate Amino Transferase 28 U/L (17-59); Bilirubin,Total 0.5 mg/dL (0.2-1.3); Blood Urea Nitrogen 22 mg/dL (9-20); Calcium 8.7 mg/dL (8.4-10.2); Carbon Dioxide 30 mmol/L (22-30); Chloride 104 mmol/L (98-107); Estimated CRCL calculation 73 ml/min; Estimated Glomerular Filt Rate > 60; Glucose 114 mg/dL (65-110); Potassium 4.3 mmol/L (3.4-5.0); Sodium 140 mmol/L (137-145); Total Protein 8.1 g/dL (6.3-8.2)
--- NOTE | 2025-08-16 04:56 | ED.URI ---
HPI - URI/Sore Throat General Chief Complaint: Upper Respiratory Infection Stated Complaint: flu symptoms History of Present Illness HPI Narrative: Patient presents here with some congestion, cough, URI symptoms. Having some shortness of breath, sent here from correction. Denies any chest pain. Related Data Home Medications ?Medication ?Instructions ?Recorded ?Confirmed ?Last Taken ?Type fluticasone propionate 50 100 g intranasal DAILY 06/12/21 07/22/25 07/21/25 08:20 History mcg/actuation nasal 100 g spray,suspension Antacid (calcium carbonate) 500 mg PO BID 06/30/24 07/22/25 07/21/25 15:40 History 500 mg acetaminophen 325 mg tablet 650 mg PO TID PRN Pain 06/30/24 07/22/25 07/21/25 08:25 History 325 mg amlodipine 5 mg tablet 5 mg PO DAILY 06/30/24 07/22/25 07/21/25 08:20 History Held on 07/28/25. 5 mg Instructions: Review blood pressures with physician before restarting ergocalciferol (vitamin D2) 1,250 1,250 mcg PO WEEKLY 06/30/24 11/05/24 06/29/24 History mcg (50,000 unit) capsule lisinopril 20 mg tablet 40 mg PO DAILY 06/30/24 07/22/25 07/21/25 08:20 History Held on 07/28/25. 40 mg Instructions: Review blood pressures with physician before restarting loperamide 2 mg tablet (Imodium 2 mg PO Q4-6H PRN Loose Stool 06/30/24 07/22/25 07/16/25 09:50 History A-D) 2 mg simvastatin 40 mg tablet 40 mg PO HS 06/30/24 07/22/25 07/21/25 20:25 History 20 mg Allergies Allergy/AdvReac Type Severity Reaction Status Date / Time levofloxacin Allergy Mild Rash Verified 08/16/25 03:11 Quinolones Allergy Mild Rash Verified 08/16/25 03:11 Review of Systems Review of Systems: All systems reviewed & are unremarkable except as noted in HPI and below PMFSH Past Medical History Medical History (Updated 08/16/25 @ 04:48 by Leticia Galeana MD) Sleep apnea Adult hypothyroidism Morbid (severe) obesity due to excess calories Colon polyp Shingles Chronic venous insufficiency Ventral hernia Diabetes type 2, controlled GERD (gastroesophageal reflux disease) Hypercholesteremia Hypertension Surgical History Surgical History History of knee replacement procedure of left knee History of knee replacement procedure of right knee History of cholecystectomy Family History Family History Father Family history of heart disease in male family member before age 55, Onset Age: 64 Patient's father is Family history of cardiovascular disease Other Family history of kidney disease Family history of osteoarthritis Hypertension Social History Social History (Updated 07/22/25 @ 08:31 by Sathya Mcdowell MD) Social History: Patient resides at [facility]. Lives alone in his apartment. He does not receive meals from the facility. He has an aide 20 hours per week to help with ADLs. No children. He is single. Denies tobacco or drug use. He rarely drinks alcohol. Surrogate decision maker -sister Code status -full Smoking status: Never smoker Second hand tobacco smoke exposure: No Alcohol intake: never Substance use: never Substance use type: does not use Do You Feel Safe in your Home?: Yes Lack of Transportation: No Lack of Food: Never True Current Housing: I Have Housing Concerned About Future Housing: No Difficulty Paying Gas/Electric Bills: No Difficulty Paying for Meds: No Currently Unemployed: No Education: High School Diploma/GED Difficulty w/ Childcare or Family Care: No Gender identity (if verbalized by the patient): Male Spiritual care concerns: No Exam Narrative: EXAMINATION OF ORGAN SYSTEMS/BODY AREAS: Constitutional: Vital signs per nursing GENERAL:[No acute distress, non-toxic appearing.] HEAD: Normal with no signs of head trauma. EYES: EOMI, conjunctiva normal ENT: Hearing grossly intact LUNGS: Nonlabored breathing. Some end-expiratory wheezing. HEART: [Regular rate and rhythm] ABD: [Soft], [nontender to palpation] EXT: Normal range of motion SKIN: [No rashes or lesions.] NEURO: [Alert and oriented x 3. No gross focal sensory or strength deficits.] PSYCH: Normal affect Course Vital Signs Vital signs: Vital Signs Temperature 99.6 F 08/16/25 02:54 Pulse Rate 102 H 08/16/25 02:54 Respiratory Rate 22 H 08/16/25 02:54 Blood Pressure 141/65 H 08/16/25 02:54 Pulse Oximetry 97 08/16/25 02:54 Oxygen Delivery Room Air 08/16/25 02:54 Temperature 99.6 F 08/16/25 02:54 Pulse Rate 92 08/16/25 03:29 Respiratory Rate 20 08/16/25 03:29 Blood Pressure 141/65 H 08/16/25 02:54 Pulse Oximetry 95 08/16/25 03:09 Oxygen Delivery Room Air 08/16/25 03:09 MDM - URI/Sore Throat MDM Narrative Medical decision making narrative: Patient presents here with URI symptoms and some shortness of breath. On exam he is well-appearing but does have some end expiratory wheezing and some difficulty with breathing. I did order a breathing treatment for him, and obtained a broad workup. EKG on my independent interpretation limited by artifact, does show AFib, rate 91, QRS 98, QTC 4 for 9, normal axis, no obvious ST elevations or depressions or signs of acute ischemia or arrhythmia Chest x-ray on my independent interpretation does show some cardiomegaly, I do not see any obvious consolidations. Labs within acceptable limits including normal WBCs. On re-evaluation of the patient, he now states that he feels fine. His shortness of breath has resolved. His oxygenation is now 98% on room air. He feels comfortable going home at this time. Given his risk factors I will put him on antibiotics, strict return precautions and have follow-up with his doctor. I did also provide prescription for albuterol. Lab Data 08/16/25 03:25 08/16/25 03:25 Labs: Lab Results 08/16/25 Range/Units 03:25 WBC 6.1 (4.5-10.0) K/mm3 RBC 4.38 L (4.6-6.20) M/mm3 Hgb 13.2 L (14.0-18.0) g/dL Hct 44.8 (42.0-52.0) % MCV 102.3 H (80-100) fl MCH 30.1 (26-34) pg MCHC 29.5 L (32-36) g/dl RDW 15.6 H (11.5-14.5) % Plt Count 219 (150-375) k/mm3 MPV 9.7 (7.4-10.4) fl Immature Gran % (Auto) 0.3 (0-0.5) % Neut % (Auto) 75.5 H (45.5-73.1) % Lymph % (Auto) 15.0 L (18.3-44.2) % [place] % (Auto) 8.2 (2.6-8.5) % Eos % (Auto) 0.8 (0-4.4) % Baso % (Auto) 0.2 (0.2-1.2) % Lymph # (Auto) 0.92 (0.9-3.2) K/mm3 [place] # (Auto) 0.5 (0.1-0.6) K/mm3 Eos # (Auto) 0.1 (0-0.3) K/mm3 Baso # (Auto) 0.0 (0.0-0.1) K/mm3 Abs Immat Gran (auto) 0.02 (0.00-0.031) K/mm3 Absolute Neuts (auto) 4.6 (1.3-6.7) K/mm3 Absolute Nucleated RBC 0.000 (0.0-0.012) K/mm3 Nucleated RBC % 0.0 (0.0-0.2) % Sodium 140 (137-145) mmol/L Potassium 4.3 (3.4-5.0) mmol/L Chloride 104 (98-107) mmol/L Carbon Dioxide 30 (22-30) mmol/L Anion Gap 6 (4-12) mmol/L BUN 22 H D (9-20) mg/dL Creatinine 1.01 (0.7-1.3) mg/dL Estim Creat Clear Calc 73 ml/min Estimated GFR > 60 (59 - ) Glucose 114 H (65-110) mg/dL Calcium 8.7 (8.4-10.2) mg/dL Total Bilirubin 0.5 (0.2-1.3) mg/dL AST 28 (17-59) U/L ALT 19 (6-50) U/L Alkaline Phosphatase 97 (38-126) U/L Total Protein 8.1 (6.3-8.2) g/dL Albumin 4.0 (3.5-5.1) g/dL Discharge Plan Discharge Clinical Impression: Acute bronchitis Patient Disposition: NH Senior Living/Asst Living Condition: Stable Instructions: Antibiotic Form, Acute Bronchitis (ED) Additional Instructions: Please take the antibiotics as prescribed, you can use the inhaler also, and follow-up with your doctor. If you start having chest pain or shortness of breath or anything else concerning, please come back to the ER. Patient Language: Citizen Of [place] Prescriptions: New azithromycin 250 mg tablet 250 mg PO DAILY 4 Days Qty: 4 0RF Rx Instructions: start on day 2 of therapy amoxicillin-pot clavulanate 875-125 mg tablet 1 tablet PO Q12H Qty: 10 0RF albuterol sulfate 90 mcg/actuation HFA aerosol inhaler 2 puff inhalation QID PRN (Reason: shortness of breath or wheezing) Qty: 8.5 0RF No Action fluticasone propionate 50 mcg/actuation spray,suspension 100 g intranasal DAILY Antacid (calcium carbonate) 500 mg 500 mg PO BID acetaminophen 325 mg Tablet 650 mg PO TID PRN (Reason: Pain) amlodipine 5 mg tablet 5 mg PO DAILY ergocalciferol (vitamin D2) 1,250 mcg (50,000 unit) Capsule 1,250 mcg PO WEEKLY Rx Instructions: weekly on Mondays lisinopril 20 mg tablet 40 mg PO DAILY simvastatin 40 mg tablet 40 mg PO HS loperamide [Imodium A-D] 2 mg Tablet 2 mg PO Q4-6H PRN (Reason: Loose Stool) Rx Instructions: take 1-2 tabs for loose stool Eliquis 5 mg Tablet 5 mg PO Q12HR Qty: 180 0RF metoprolol tartrate 37.5 mg tablet 37.5 mg PO BID Qty: 180 0RF amoxicillin 500 mg Capsule 1,000 mg PO Q8HR 6 Days Qty: 36 0RF Rx Instructions: start 07/29/25, continue through 08/03/25 cyanocobalamin (vitamin B-12) [Vitamin B-12] 1,000 mcg Tablet 1,000 mcg PO QAM Qty: 30 0RF Artificial Tears(glycerin-peg) 1-0.3 % drops 1 drp EACH EYE QID PRN (Reason: dry eye(s)) Qty: 30 0RF ferrous sulfate 325 mg (65 mg iron) tablet,delayed release (DR/EC) 325 mg PO DAILY Qty: 90 1RF omeprazole 40 mg capsule,delayed release(DR/EC) 40 mg PO DAILY Qty: 90 1RF glipizide 2.5 mg tablet extended release 24hr 2.5 mg PO DAILY Qty: 90 1RF furosemide 40 mg tablet See Rx Instructions .ROUTE .COMPLEX Qty: 30 4RF Dose Instruction: TAKE 1 TABLET BY MOUTH EVERY MORNING Rx Instructions: TAKE 1 TABLET BY MOUTH EVERY MORNING levothyroxine 100 mcg tablet See Rx Instructions .ROUTE .COMPLEX Qty: 90 1RF Dose Instruction: TAKE 1 TABLET BY MOUTH DAILY Rx Instructions: TAKE 1 TABLET BY MOUTH DAILY hydrocodone-acetaminophen 7.5-325 mg tablet 1 tablet PO Q4H PRN (Reason: pain) Qty: 120 0RF Follow-up/Referrals: Leobardo Myles MD [Primary Care Provider, Family Practice] - 2 Days
[2025-08-16] MEDS: cefTRIAXone 2 GM in SODIUM CHLORIDE 0.9% IV 100 ML 200 ML IVPB (05:01)
[2025-08-16] MEDS: AZITHROMYCIN 500 MG TABLET PO (05:02)
--- NOTE | 2025-08-16 05:11 | PC.NURSE ---
Blood Cultures sent before antibiotic started.
--- NOTE | 2025-08-16 05:30 | PC.NURSE ---
This RN called [facility] to give report and spoke to Robinson who transferred be to the [address] [place] [address] and received no answer. Will call back .
--- NOTE | 2025-08-16 06:09 | PC.NURSE ---
This RN called [facility] again x2 and spoke to an RN who did not give a name. When this RN told them of diagnosis of bronchitis and what he was treated with medication evans and he was being sent back, this RN was cut off and told that his pulse was too high to come back. This RN stated that his last pulse was 102 and he was given albuterol and pt has no complaints at this time. As well as the doctor discharged him. [facility] RN then states,that is a critical pulse, we send people out for that. This RN stated that it is not critical. [facility] RN then stated that he's in AFIB. This RN explained that he has a hx and on medications. [facility] RN proceeded to mumble and say what are we supposed to do about this heart rate. and this RN asked if she would like to speak to someone else , [facility] RN ignored this RN and then stated, I will be sure to tell my doctor about this and hung up on this RN before getting a name .
== END 2025-08-16 06:22 ==
PROVIDERS: Emergency Provider Emergency Medicine; PCP Family Medicine
DX: J40 Bronchitis, not specified as acute or chronic (principal); G47.30 Sleep apnea, unspecified; E03.9 Hypothyroidism, unspecified; E11.9 Type 2 diabetes mellitus without complications; E78.5 Hyperlipidemia, unspecified; I10 Essential (primary) hypertension; E66.01 Morbid (severe) obesity due to excess calories; Z68.43 Body mass index [BMI] 50.0-59.9, adult; I48.91 Unspecified atrial fibrillation
CPT/HCPCS: 36415; 71045; 80053; 85025; 87040; 93005; 94640; 96365; 99284; J0696